=== PATIENT | male | born 1950 | race Caucasian/White ===

== ENCOUNTER 2018-11-08 19:14 | Inpatient (IN) | payer MEDICARE, MEDICAID ==
[~2018-11-08] VITALS: Ht 182.9 cm; Wt 68.5 kg
[~2018-11-08 19:14] MED LIST: BISACODYL5 MG RECTAL; DOCUSATE SODIU100 MG ORAL; DUONEB 0.5-3(2.53 ML HHN; FAMOTIDINE20 MG ORAL; FERROUS SULFAT325 MG ORAL; LABETALOL HCL100 MG ORAL; LEXAPRO10 MG ORAL; MILK OF MA400 MG/51 ORAL; NORCO 10-325 T1 EACH ORAL; PANTOPRAZOLE SO40 MG ORAL; TRIUMEQ 600-501 EACH PO
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
--- NOTE | 2018-11-08 19:27 | NUR ---
RESPIRATORY NOTE: PT. WAS BROUGHT IN FOR RESPIRATORY DISTRESS VIA AMBULANCE. PT WAS PLACED ON BIPAP 18/10 RATE 0F 16. 75% FIOS2 ALARMS ON AND AUDIBLE. PT IS CURRENTLY ON A FACIAL FASK. SPONGE TAPE WAS PLACE TO PROTECT THE FACE. NO PRIOR FACIAL WOUNDS WERE FOUND. ABG TO FOLLOW Addendum: 11/08/18 at 2057 by KALEN THOMAS RT REASON FOR AMENDMENT: INCOMPLETE NOTE. RESPIRATORY NOTE: PT. WAS BROUGHT IN FOR RESPIRATORY DISTRESS VIA AMBULANCE. PT WAS PLACED ON BIPAP 18/10 RATE 0F 16. FIO2 75% ALARMS ON AND AUDIBLE. PT IS CURRENTLY ON A FACIAL MASK. SPONGE TAPE WAS PLACE TO PROTECT THE FACE. NO PRIOR FACIAL WOUNDS WERE FOUND. ABG TO FOLLOW. WILL CONTINUE TO MONITOR.
[2018-11-08] MEDS ORDERED: FLEET ENEMA133 ML RECTAL (19:28)
[2018-11-08] MEDS ORDERED: ACETAMINOPHEN325 M1 ORAL (19:28)
[2018-11-08] MEDS ORDERED: Solu-MEDROL 125mg Inj IVP ONE (19:30)
[2018-11-08 19:33] LABS: EOSINOPHILS % (AUTO) 0.8 % (0.0-3.0); HEMATOCRIT 41.6 % (42.0-52.0); LYMPHOCYTES % (AUTO) 18.7 % (20.0-45.0); MEAN CORPUSCULAR VOLUME 84 FL (80-99); MONOCYTES % (AUTO) 8.8 % (1.0-10.0); NEUTROPHILS % (AUTO) 70.7 % (45.0-75.0); PLATELET COUNT 258 K/UL (150-450); RED BLOOD COUNT 4.94 M/UL (4.70-6.10); RED CELL DISTRIBUTION WIDTH 13.8 % (11.6-14.8); WHITE BLOOD COUNT 12.1 K/UL (4.8-10.8)
[2018-11-08 19:35] VITALS: BP 163/84
[2018-11-08 19:40] LABS: ANION GAP 7 mmol/L (5-15); BLOOD UREA NITROGEN 21 mg/dL (7-18); CALCIUM 9.2 MG/DL (8.5-10.1); CARBON DIOXIDE 29 MMOL/L (21-32); CHLORIDE 101 MMOL/L (98-107); CREATININE 1.1 MG/DL (0.55-1.30); POTASSIUM 4.6 MMOL/L (3.5-5.1); SODIUM 137 MMOL/L (136-145)
[2018-11-08 19:52] LABS: ALANINE AMINOTRANSFERASE 53 U/L (12-78); ALBUMIN 3.5 G/DL (3.4-5.0); ALBUMIN/GLOBULIN RATIO 0.8 (1.0-2.7); ALKALINE PHOSPHATASE 115 U/L (46-116); ASPARTATE AMINO TRANSFERASE 40 U/L (15-37); BILIRUBIN,TOTAL 0.5 MG/DL (0.2-1.0); CKMB 1.6 NG/ML (0.0-3.6); CREATINE KINASE 48 U/L (26-308)
--- NOTE | 2018-11-08 20:09 | Diagnostic Imaging Report ---
EXAM: XR Chest, 1 View CLINICAL HISTORY: SOB TECHNIQUE: Frontal view of the chest. COMPARISON: 11/02/18 FINDINGS: Lungs: Some very mild increased interstitial markings are suspected in the lungs which grossly have a similar appearance compared to the prior exam. Large lung volumes. A calcified nodule is again projected over the right lung base. Pleural space: No definite plain film evidence for pneumothorax. Heart: Unremarkable. No cardiomegaly. Mediastinum: There is some mild prominence of the mediastinum which may be related to the patient being rotated to the right. Bones/joints: Degenerative changes of the left acromioclavicular joint and thoracic spine. IMPRESSION: 1. Some very mild increased interstitial markings are suspected in the lungs which grossly have a similar appearance compared to the prior exam. 2. Large lung volumes.
--- NOTE | 2018-11-08 20:11 | NUR ---
RESPIRATORY NOTE: FIO2 TITRATED TO 30% PER DR. CHAPMAN ORDER POST ABG RESULTS. WILL CONTINUE TO MONITOR.
[2018-11-08] MEDS ORDERED: Levalbuterol Inh UD 1.25mg/0.5ml ONE (20:26)
[2018-11-08] MEDS ORDERED: Levalbuterol Inh UD 1.25mg/0.5ml HHN ONE (20:30)
[2018-11-08 21:30] VITALS: BP 118/81
[2018-11-08 22:10] VITALS: BP 133/73
--- NOTE | 2018-11-08 22:10 | NUR ---
NURSE NOTES: Received report from Tala RN, pt. brought up from ER, pt. is awake and alert X's4 - able to make needs known, Partner at bedside, pt. appears to be stable on BIPAP 19/10 Fio2 at30%- no respiratory distress noted, bed in lowest position and call light within easy reach, bed alarm on, side rails up x's3 and safety brakes engaged, cardiac monitoring placed, urinal placed at bed side and within easy reach, full body assessment done- sacral redness noted, but skin intact, VS stable, RFA 18G IV intact and patent, RT. AC 20G IV intact and patent, safety measures continued, will continue with plan of care.
--- NOTE | 2018-11-08 22:47 | NUR ---
NURSE NOTES: Nurse from ER aware to come up and start bag for Magnesium that was prescribed in ER.
--- NOTE | 2018-11-08 22:47 | NUR ---
NURSE NOTES: paged DR. Reynoso for admitting orders- waiting for call back from doctor.
--- NOTE | 2018-11-08 22:52 | NUR ---
NURSE NOTES: DR. Reynoso calling back with admitting orders- Regular diet no modifications, renew all [facility] medications, code status Full code, Levaquin IVPB 500mg Q daily, BIPAP 19/10 fio2 at 30%, Heparin 5000 units SUb-Q every 12 hours, and Solu-Medrol IVPB 50mg Daily- will carry out orders.
[2018-11-08] MEDS ORDERED: HYDROcodone/Acetamin 10/325 tab ORAL PRN (23:15)
--- NOTE | 2018-11-08 23:17 | NUR ---
NURSE NOTES: ALLY AT [facility] NOTIFIED OF MEDICATION SOLU-MEDROL 50MG VIA IVPB DAILY- ORDERS READ BACK TO DOCTOR AND STILL WANTS SOLU-MEDROL 50MG VIA IVPB DAILY. PER Ally - SHE WILL HAVE AM PHARMACIST PREPARE MEDICATION IT NEEDS TO BE MIXED.
[2018-11-09] VITALS: BP 120/73
[2018-11-09 04:00] VITALS: BP 122/50
--- NOTE | 2018-11-09 04:58 | NUR ---
RESPIRATORY NOTE: PT. REMAINED STABLE ON BIPAP WITH CURRENT SETTINGS. SPONGE TAPE SECURELY IN PLACE. MASK AND BIPAP CIRCUIT SECURE AND OUT OF THE WAY. NO S/S OF RESPIRATORY DISTRESS NOTED AT THIS TIME.
--- NOTE | 2018-11-09 07:01 | NUR ---
NURSE NOTES: Mindy from pharmacy calling regarding medication ordered by DR. Reynoso, Solu-Medrol 50mg VIA IVPB daily- explained to Mindy that doctor ordered the medication this way- and that I called doctor after ordered were read back again to verify order and doctor stated to have pharmacist dilute order- pharmacist aware.
--- NOTE | 2018-11-09 07:13 | NUR ---
HAND-OFF: Report given to Lianet RN, pt. remains stable and no signs of distress noted- aware discussion had with pharmacist Mindy regarding doctor ordering Solu-Medrol 50mg via IVPB daily and doctor requesting medication to be given that way.
--- NOTE | 2018-11-09 07:15 | NUR ---
NURSE NOTES: Report received from Alina HERNANDEZ.Pt resting in bed asleep but easily awakens with verbal command,on Bipap 19/10 Fio2 30%,noted no resp distress,denies any c/o pain or discomfort S-R on the monitor,skin warm and dry PIV x2 LAC and RFA both intact,SR up x2 call albarran within reach at bedside ,HOB elevated ,will continue with plan of care.
[2018-11-09 08:00] VITALS: BP 140/73
[2018-11-09] MEDS: Bisacodyl EC 5mg tab ORAL SCH (08:28)
[2018-11-09] MEDS: Milk of Magnesia 30ml Ud ORAL SCH (08:29)
[2018-11-09] MEDS: Docusate 100mg cap ORAL SCH ×2 (08:30→17:40)
[2018-11-09] MEDS: Heparin 5000 units/ml inj SUBQ SCH ×2 (08:31→20:06)
[2018-11-09] MEDS: Fleet's Enema 133ml RECTAL SCH (08:34)
[2018-11-09] MEDS ORDERED: NS IVP SCH (09:00)
[2018-11-09] MEDS ORDERED: METHYLPREDNISOLONE SOD SUCC IVP SCH (09:00)
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
--- NOTE | 2018-11-09 11:09 | NUR ---
NURSE NOTES: Dr Reynoso at bedside,discussed with pt re plans of care.
[2018-11-09] MEDS: HYDROcodone/Acetamin 10/325 tab ORAL PRN ×2 (11:23→22:17)
--- NOTE | 2018-11-09 11:27 | NUR ---
RESPIRATORY NOTE: Pt found off Bipap. Faith RN placed on 3L NC so the pt could eat. Pt has been tolerating NC since this morning with no SOB. NO respiratory distress noted. Breath sounds rhonchi bilateral. Nasotracheal suctioning done with moderate amount of yellow/white secretions produced. Spo2 100, HR 68, RR 20. Will continue to monitor.
[2018-11-09 12:00] VITALS: BP 157/77
--- NOTE | 2018-11-09 13:57 | NUR ---
CASE MANAGEMENT: REVIEW 68/M BIBA FROM [facility] CC: SOB SI: RESP DISTRESS T 98.4 HR 137 RR 31 BP 186/117 SAT 100% BIPAP FIO2 75 NA 12.1 H/H 13.0/41.6 BUN 21 ABG: PH 7.330 PCO2 51.7 PO2 301.9 HCO3 26.6 IS: NS IVF BOLUS X1 SOLU MEDROL IV X1 XOPENEX HHN X1 MAG SUL IV X1 PATIENT ADMITTED TO STEP DOWN UNIT 11/08/2018 DCP: PATIENT IS FROM [facility]
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
--- NOTE | 2018-11-09 15:10 | NUR ---
NURSE NOTES: Pt resting in bed asleep no resp distress presented ,stable.
[2018-11-09 16:00] VITALS: BP 126/66
--- NOTE | 2018-11-09 17:35 | NUR ---
NURSE NOTES: Dr Lopez at bedside with orders, to pt on 2L NC and keep O2 sat bet 90-96 %,,tolerated well, no resp distress presented.
--- NOTE | 2018-11-09 19:03 | NUR ---
HAND-OFF: Report given to Savanah Taylor RN.Pt sitting up on bed watching TV no resp distress presented.
--- NOTE | 2018-11-09 19:10 | NUR ---
NURSE NOTES: Received report from Lianet RN, pt. is awake and alert X's4 - able to make needs known, pt. appears to be comfortable watching television, pt. appears to be stable on BIPAP 12/5 setting Fio2 at 30%- no respiratory distress noted, bed in lowest position and call light within easy reach, bed alarm on, side rails up x's3 and safety brakes engaged- bed locked in position, cardiac monitoring on, urinal placed at bed side and within easy reach, RFA 18G IV intact and patent, RT. AC 20G IV intact and patent, comfort measures provided, safety measures continued, will continue with plan of care.
[2018-11-09 20:00] VITALS: BP 143/74
[2018-11-09] MEDS: Solu-MEDROL 40mg Inj IVP SCH (20:05)
--- NOTE | 2018-11-09 22:22 | NUR ---
NURSE NOTES: per opto mechanical technician- pt. having new onset of ST depression- assessed pt.- pt. stated he is having pain under ribs- no chest pain per pt. pt. asking for pain medication- otherwise pt. appears to be stable and no distress noted. Left msg for DR. Reynoso- waiting for call back from doctor.
--- NOTE | 2018-11-09 22:28 | NUR ---
NURSE NOTES: went to reassess patient- pt. stating he is fine and pain is improving. will continue to monitor pt. and with plan of care.
--- NOTE | 2018-11-09 22:45 | NUR ---
NURSE NOTES: DR. Reynoso calling back- to order EKG stat and Troponin tat- orders carried out- will continue to monitor pt. and notify doctor of results.
--- NOTE | 2018-11-09 23:39 | NUR ---
NURSE NOTES: Lisa from Lab calling regarding Troponin level 0.134- left msg for DR. Reynoso- waiting for call back from doctor.
--- NOTE | 2018-11-09 23:44 | NUR ---
NURSE NOTES: DR. Reynoso notified of EKG results and Troponin results 0.134. Per DR. Reynoso to order EKG and Troponin labs at 0400- will carry out orders and to notify him of results.
[2018-11-10] VITALS: BP 134/70
[2018-11-10 04:00] VITALS: BP 138/90
--- NOTE | 2018-11-10 05:48 | NUR ---
NURSE NOTES: left msg for DR. Reynoso- regarding Troponin trending up now 0.140 and EkG at [address] depression- awaiting for call back from doctor. Pt. remains stable and no signs of distress noted.
--- NOTE | 2018-11-10 07:08 | NUR ---
NURSE NOTES: DR. Reynoso calling back notified him pt. still shows ST depression on EKG and Troponin is trending up now 0.140- per Doctor he will get waistline joiner overlock assigned to patient.
--- NOTE | 2018-11-10 07:09 | NUR ---
HAND-OFF: Report given to Gregg HERNANDEZ, pt. remains stable and no signs of distress noted.
--- NOTE | 2018-11-10 07:15 | NUR ---
NURSE NOTES: Received report from Umair Taylor RN. Patient eating breakfast in bed, alert and oriented x 4, able to make needs known. Receiving O2 via nasal cannula @ 2L/min, respirations even and unlabored. Right forearm 18g and right AC 18g saline lock patent and asymptomatic. Bed locked in lowest position with side rails up x 3. All needs attended to. Call light within reach. Will continue to monitor.
[2018-11-10 08:00] VITALS: BP 108/73
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
[2018-11-10] MEDS: Levofloxacin 500mg tab ORAL SCH (08:49)
[2018-11-10] MEDS: Bisacodyl EC 5mg tab ORAL SCH (08:49)
[2018-11-10] MEDS: Milk of Magnesia 30ml Ud ORAL SCH (08:49)
[2018-11-10] MEDS: Docusate 100mg cap ORAL SCH ×2 (08:49→17:41)
[2018-11-10] MEDS: Solu-MEDROL 40mg Inj IVP SCH ×2 (08:49→20:56)
[2018-11-10] MEDS: Heparin 5000 units/ml inj SUBQ SCH ×2 (08:51→20:58)
--- NOTE | 2018-11-10 11:12 | General Progress Note ---
Assessment/Plan Assessment/Plan Atypical CP - Cardiology consulted . TropI increased to 0.14. EKG _ LVH + strain. Subjective Allergies: Coded Allergies: No Known Allergies (Unverified , 11/02/18) Subjective Had epigastric CP during the night. Objective Last 24 Hour Vital Signs Date Time Temp Pulse Resp B/P (MAP) Pulse Ox O2 Delivery O2 Flow Rate FiO2 11/10/18 08:51 68 108/73 11/10/18 08:00 70 11/10/18 08:00 98.5 68 19 108/73 (85) 98 11/10/18 08:00 2.0 11/10/18 08:00 Nasal Cannula 2.0 11/10/18 05:18 61 18 99 11/10/18 04:00 30 11/10/18 04:00 62 11/10/18 04:00 Bi-pap 11/10/18 04:00 97.2 63 16 138/90 (106) 100 11/10/18 03:55 61 18 100 Facial 30 11/10/18 01:13 63 18 100 Facial 30 11/10/18 00:00 30 11/10/18 00:00 96.8 62 20 134/70 (91) 100 11/10/18 00:00 Bi-pap 11/10/18 00:00 58 11/09/18 23:21 62 18 99 Facial 30 11/09/18 22:47 98.5 11/09/18 21:01 66 18 100 Facial 30 11/09/18 20:12 70 18 100 Facial 30 11/09/18 20:05 75 143/74 11/09/18 20:00 69 11/09/18 20:00 98.5 72 20 143/74 (97) 99 11/09/18 20:00 30 11/09/18 20:00 Bi-pap 11/09/18 16:00 30 11/09/18 16:00 Bi-pap 11/09/18 16:00 96.8 67 18 126/66 (86) 100 11/09/18 16:00 63 11/09/18 14:39 67 18 100 Facial 30 11/09/18 13:10 61 18 100 Facial 30 11/09/18 12:00 30 11/09/18 12:00 73 11/09/18 12:00 Bi-pap 11/09/18 12:00 97.0 66 18 157/77 (103) 100 Intake and Output 11/09/18 11/10/18 19:00 07:00 Output Total 650 ml Balance -650 ml Output Urine Total 650 ml # Voids 1 Laboratory Tests 11/09/18 23:05: Troponin I 0.134H 11/10/18 03:55: Troponin I 0.140H Height (Feet): 6 Height (Inches): 0.00 Weight (Pounds): 160 Objective CV RR Lungs CTA Abd SNT BS + E No CCE Ernesto Reynoso MD Nov 10, 2018 11:12
[2018-11-10 12:00] VITALS: BP 149/70
--- NOTE | 2018-11-10 13:42 | NUR ---
NURSE NOTES: Patient's ST depression in EKG and troponin level of 0.[address] Barnhart. Received order to fax EKG, noted and carried out. Please see confirmation of fax in patient's chart.
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
--- NOTE | 2018-11-10 14:50 | NUR ---
TRANSFER TO FLOOR: Patient transferred to med-surg room 412-2, per Dr. Drummond. Report given to DAVID Cope. Belongings and medications given to receiving nurse. Family informed of transfer. Addendum: 11/10/18 at 1519 by ETELVINA ALVARENGA RN *ERROR---WRONG PATIENT* PLEASE DISREGARD
[2018-11-10] MEDS: HYDROcodone/Acetamin 10/325 tab ORAL PRN (15:46)
[2018-11-10 16:00] VITALS: BP 153/76
--- NOTE | 2018-11-10 16:50 | Cardiology Report ---
APPROVED REPORT EKG Measurement Heart [id number] CO [id number] [id number] Sinus bradycardia Left ventricular hypertrophy with repolarization abnormality Prolonged QT Abnormal ECG
[2018-11-10] MEDS: Albuterol/Ipratropium 3ml neb HHN PRN ×2 (17:38→19:38)
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
--- NOTE | 2018-11-10 19:17 | NUR ---
HAND-OFF: Report given to Abdi Tijerina RN.
--- NOTE | 2018-11-10 19:30 | NUR ---
NURSE NOTES: Received Pt is resting on the bed and awake and alert. No sign of acute distress noted. On Tele monitor still noted inverted T wave and ST depression. Dr. Barnhart visited and assessed Pt. Rt. AC IV site is leaking. Removed IV line. On O2 2L via nasal cannula ans SaO2 99% noted. Placed fall precaution. Will continue to care plan.
--- NOTE | 2018-11-10 19:57 | NUR ---
CASE MANAGEMENT: REVIEW SI: RESP DISTRESS T 98.2 HR 74 RR 18 BP 149/70 SAT 100% BIPAP FIO2 30 TROPONIN I 0.140 IS: SOLU MEDROL IV Q12HR HEPARIN SQ Q12HR NITRO TOPICAL TID LEVAQUIN PO QD DOXYCYCLINE PO Q12HR STEP DOWN STATUS DCP: PATIENT IS FROM [facility]
[2018-11-10 20:00] VITALS: BP 154/84
[2018-11-11] VITALS: BP 155/76
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
[2018-11-11 04:00] VITALS: BP 147/70
[2018-11-11] MEDS: Nitroglycerin 2% oint pkt TOPIC SCH ×3 (06:12→17:00)
[2018-11-11 07:18] LABS: ALANINE AMINOTRANSFERASE 38 U/L (12-78); ALBUMIN 2.9 G/DL (3.4-5.0); ALBUMIN/GLOBULIN RATIO 0.7 (1.0-2.7); ALKALINE PHOSPHATASE 86 U/L (46-116); ANION GAP 6 mmol/L (5-15); ASPARTATE AMINO TRANSFERASE 22 U/L (15-37); BILIRUBIN,TOTAL 0.3 MG/DL (0.2-1.0); BLOOD UREA NITROGEN 25 mg/dL (7-18); CALCIUM 9.2 MG/DL (8.5-10.1); CARBON DIOXIDE 30 MMOL/L (21-32); CHLORIDE 104 MMOL/L (98-107); CREATININE 0.9 MG/DL (0.55-1.30); PHOSPHORUS 3.1 MG/DL (2.5-4.9); POTASSIUM 4.5 MMOL/L (3.5-5.1); SODIUM 140 MMOL/L (136-145)
--- NOTE | 2018-11-11 07:40 | NUR ---
HAND-OFF: Report given to DAVID German. Pt is resting on the bed and no sign of acute distress noted.
--- NOTE | 2018-11-11 07:40 | NUR ---
NURSE NOTES: Received report from Ivy HERNANDEZ. Pt is awake, alert, oriented x4, sitting up in bed, having breakfast. Was switched from Bipap to 2L of oxygen via nasal cannula, currently at 99% sP02. Denies any chest pain at this time. NitroBid patch on right upper chest. IV access on right FA #18G, saline lock, patent/intact. Urinal at bedside. Skin is intact. Call light is placed within easy reach, bed in lowest position, two side rails up, brakes engaged.
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
[2018-11-11 07:49] LABS: CKMB 0.9 NG/ML (0.0-3.6)
[2018-11-11 08:00] VITALS: BP 138/81
[2018-11-11 08:08] LABS: BASOPHILS % (AUTO) 0.4 % (0.0-2.0); HEMATOCRIT 35.8 % (42.0-52.0); HEMOGLOBIN 11.2 G/DL (14.2-18.0); LYMPHOCYTES % (AUTO) 18.5 % (20.0-45.0); MEAN CORPUSCULAR VOLUME 84 FL (80-99); MONOCYTES % (AUTO) 9.9 % (1.0-10.0); NEUTROPHILS % (AUTO) 71.3 % (45.0-75.0); PLATELET COUNT 188 K/UL (150-450); RED BLOOD COUNT 4.25 M/UL (4.70-6.10); WHITE BLOOD COUNT 6.4 K/UL (4.8-10.8)
[2018-11-11] MEDS: Milk of Magnesia 30ml Ud ORAL SCH (08:55)
[2018-11-11] MEDS: Docusate 100mg cap ORAL SCH ×2 (08:55→16:59)
[2018-11-11] MEDS: Bisacodyl EC 5mg tab ORAL SCH (08:56)
[2018-11-11] MEDS: Levofloxacin 500mg tab ORAL SCH (08:56)
[2018-11-11] MEDS: Heparin 5000 units/ml inj SUBQ SCH ×2 (08:58→20:22)
[2018-11-11] MEDS ORDERED: Solu-MEDROL 40mg Inj IVP SCH (09:00)
[2018-11-11] MEDS: Albuterol/Ipratropium 3ml neb HHN PRN ×2 (09:32→20:07)
--- NOTE | 2018-11-11 11:07 | GI Progress Note ---
Assessment/Plan Problems: (1) Submucosal lesion of esophagus ICD Codes: K22.8 - Other specified diseases of esophagus SNOMED: 543828135 (2) Anemia ICD Codes: D64.9 - Anemia, unspecified SNOMED: 889268610 (3) Iron deficiency ICD Codes: E61.1 - Iron deficiency SNOMED: 45157909 (4) Respiratory distress ICD Codes: R06.03 - Acute respiratory distress SNOMED: 775377256 (5) Mediastinal mass ICD Codes: J98.59 - Other diseases of mediastinum, not elsewhere classified SNOMED: 04920211 Status: unchanged Status Narrative Discussed with Dr. Arias Assessment/Plan Recent EGD/EUS performed at [facility] approximately 2 weeks ago, noted with metastatic esophageal submucosal lesion. No plans for GI procedures at this time given recent history may need capsule endoscopy r/o source of CA as outpatient We will need cardiology recommendations given elevated troponin levels As needed transfusions PPI twice daily pain mgmt ferrous Sulfate Bowel regimen Follow-up oncology recommendations The patient was seen and examined at bedside and all new and available data was reviewed in the patients chart. I agree with the above findings, impression and plan. (Patient seen earlier today. Signature stamp does not reflect patient encounter time.). - Jerry Arias MD Subjective Subjective Esophageal tenderness and pain Objective Last 24 Hour Vital Signs Date Time Temp Pulse Resp B/P (MAP) Pulse Ox O2 Delivery O2 Flow Rate FiO2 11/11/18 09:32 81 20 99 Nasal Cannula 2.0 28 11/11/18 09:27 83 20 98 Nasal Cannula 2.0 28 11/11/18 08:56 76 138/81 11/11/18 07:35 97 Nasal Cannula 2.0 28 11/11/18 07:35 Nasal Cannula 2.0 28 11/11/18 06:12 147/70 11/11/18 04:00 57 11/11/18 04:00 98.0 70 20 147/70 (95) 100 11/11/18 04:00 Bi-pap 11/11/18 04:00 2.0 11/11/18 03:01 64 16 100 11/11/18 00:00 67 11/11/18 00:00 Bi-pap 11/11/18 00:00 30 11/11/18 00:00 98.1 68 20 155/76 (102) 100 11/10/18 22:42 68 19 100 Facial 30 11/10/18 21:28 64 17 100 Facial 30 11/10/18 20:56 68 154/84 11/10/18 20:00 68 11/10/18 20:00 2.0 11/10/18 20:00 98.4 68 20 154/84 (107) 99 11/10/18 20:00 Nasal Cannula 2.0 11/10/18 19:35 99 Nasal Cannula 2.0 28 11/10/18 19:35 Nasal Cannula 2.0 28 11/10/18 17:43 74 20 100 Nasal Cannula 2.0 28 11/10/18 17:35 78 20 98 Nasal Cannula 2.0 28 11/10/18 17:32 78 20 Nasal Cannula 2.0 28 11/10/18 16:16 98.2 11/10/18 16:00 98.2 74 18 153/76 (101) 99 11/10/18 16:00 73 11/10/18 16:00 Nasal Cannula 2.0 11/10/18 16:00 2.0 11/10/18 12:00 2.0 11/10/18 12:00 98.2 68 19 149/70 (96) 100 11/10/18 12:00 Nasal Cannula 2.0 11/10/18 12:00 70 Intake and Output 11/10/18 11/11/18 19:00 07:00 Intake Total 360 ml 120 ml Output Total 525 ml 700 ml Balance -165 ml -580 ml Intake Oral 360 ml 120 ml Output Urine Total 525 ml 700 ml # Voids 3 Laboratory Tests Test 11/11/18 05:25 White Blood Count 6.4 K/UL (4.8-10.8) Red Blood Count 4.25 M/UL (4.70-6.10) L Hemoglobin 11.2 G/DL (14.2-18.0) L Hematocrit 35.8 % (42.0-52.0) L Mean Corpuscular Volume 84 FL (80-99) Mean Corpuscular Hemoglobin 26.3 PG (27.0-31.0) L Mean Corpuscular Hemoglobin Concent 31.2 G/DL (32.0-36.0) L Red Cell Distribution Width 14.0 % (11.6-14.8) Platelet Count 188 K/UL (150-450) Mean Platelet Volume 5.5 FL (6.5-10.1) L Neutrophils (%) (Auto) 71.3 % (45.0-75.0) Lymphocytes (%) (Auto) 18.5 % (20.0-45.0) L Monocytes (%) (Auto) 9.9 % (1.0-10.0) Eosinophils (%) (Auto) 0.0 % (0.0-3.0) Basophils (%) (Auto) 0.4 % (0.0-2.0) Prothrombin Time 10.9 SEC (9.30-11.50) Prothromb Time International Ratio 1.0 (0.9-1.1) Activated Partial Thromboplast Time 29 SEC (23-33) Sodium Level 140 MMOL/L (136-145) Potassium Level 4.5 MMOL/L (3.5-5.1) Chloride Level 104 MMOL/L (98-107) Carbon Dioxide Level 30 MMOL/L (21-32) Anion Gap 6 mmol/L (5-15) Blood Urea Nitrogen 25 mg/dL (7-18) H Creatinine 0.9 MG/DL (0.55-1.30) Estimat Glomerular Filtration Rate > 60 mL/min (>60) Glucose Level 115 MG/DL (74-106) H Calcium Level 9.2 MG/DL (8.5-10.1) Phosphorus Level 3.1 MG/DL (2.5-4.9) Magnesium Level 2.1 MG/DL (1.8-2.4) Total Bilirubin 0.3 MG/DL (0.2-1.0) Aspartate Amino Transf (AST/SGOT) 22 U/L (15-37) Alanine Aminotransferase (ALT/SGPT) 38 U/L (12-78) Alkaline Phosphatase 86 U/L (46-116) Total Creatine Kinase 29 U/L (26-308) Creatine Kinase MB 0.9 NG/ML (0.0-3.6) Creatine Kinase MB Relative Index 3.1 Troponin I 0.033 ng/mL (0.000-0.056) Total Protein 6.8 G/DL (6.4-8.2) Albumin 2.9 G/DL (3.4-5.0) L Globulin 3.9 g/dL Albumin/Globulin Ratio 0.7 (1.0-2.7) L Height (Feet): 6 Height (Inches): 0.00 Weight (Pounds): 160 General Appearance: WD/WN, no apparent distress, alert Cardiovascular: normal rate Respiratory/Chest: normal breath sounds, no respiratory distress Abdominal Exam: normal bowel sounds, non tender, soft Extremities: normal range of motion, non-tender Reva Wilson NP Nov 11, 2018 11:07
[2018-11-11] MEDS: HYDROcodone/Acetamin 10/325 tab ORAL PRN ×2 (11:36→21:50)
[2018-11-11 12:00] VITALS: BP 153/80
--- NOTE | 2018-11-11 13:14 | General Progress Note ---
Assessment/Plan Assessment/Plan Atypical CP - Cardiology consulted . TropI increased to 0.14. EKG _ LVH + strain. Suspect Aspiration!! DW Dr. Landeros To CINDY Arias! Subjective Allergies: Coded Allergies: No Known Allergies (Unverified , 11/02/18) Subjective Coughing, + SOB Objective Last 24 Hour Vital Signs Date Time Temp Pulse Resp B/P (MAP) Pulse Ox O2 Delivery O2 Flow Rate FiO2 11/11/18 12:06 98.6 11/11/18 12:00 Bi-pap 11/11/18 12:00 2.0 11/11/18 12:00 97.6 74 21 153/80 (104) 99 11/11/18 11:35 138/81 11/11/18 09:32 81 20 99 Nasal Cannula 2.0 28 11/11/18 09:27 83 20 98 Nasal Cannula 2.0 28 11/11/18 08:56 76 138/81 11/11/18 08:00 Bi-pap 11/11/18 08:00 98.6 76 20 138/81 (100) 99 11/11/18 08:00 2.0 11/11/18 07:42 76 11/11/18 07:35 97 Nasal Cannula 2.0 28 11/11/18 07:35 Nasal Cannula 2.0 28 11/11/18 06:12 147/70 11/11/18 04:00 57 11/11/18 04:00 98.0 70 20 147/70 (95) 100 11/11/18 04:00 Bi-pap 11/11/18 04:00 2.0 11/11/18 03:01 64 16 100 11/11/18 00:00 67 11/11/18 00:00 Bi-pap 11/11/18 00:00 30 11/11/18 00:00 98.1 68 20 155/76 (102) 100 11/10/18 22:42 68 19 100 Facial 30 11/10/18 21:28 64 17 100 Facial 30 11/10/18 20:56 68 154/84 11/10/18 20:00 68 11/10/18 20:00 2.0 11/10/18 20:00 98.4 68 20 154/84 (107) 99 11/10/18 20:00 Nasal Cannula 2.0 11/10/18 19:35 99 Nasal Cannula 2.0 28 11/10/18 19:35 Nasal Cannula 2.0 28 11/10/18 17:43 74 20 100 Nasal Cannula 2.0 28 11/10/18 17:35 78 20 98 Nasal Cannula 2.0 28 11/10/18 17:32 78 20 Nasal Cannula 2.0 28 11/10/18 16:00 98.2 74 18 153/76 (101) 99 11/10/18 16:00 73 11/10/18 16:00 Nasal Cannula 2.0 11/10/18 16:00 2.0 Intake and Output 11/10/18 11/11/18 19:00 07:00 Intake Total 360 ml 120 ml Output Total 525 ml 700 ml Balance -165 ml -580 ml Intake Oral 360 ml 120 ml Output Urine Total 525 ml 700 ml # Voids 3 Laboratory Tests 11/11/18 05:25: White Blood Count 6.4, Red Blood Count 4.25L, Hemoglobin 11.2L, Hematocrit 35.8L , Mean Corpuscular Volume 84, Mean Corpuscular Hemoglobin 26.3L, Mean Corpuscular Hemoglobin Concent 31.2L, Red Cell Distribution Width 14.0, Platelet Count 188, Mean Platelet Volume 5.5L, Neutrophils (%) (Auto) 71.3, Lymphocytes (%) (Auto) 18.5L, Monocytes (%) (Auto) 9.9, Eosinophils (%) (Auto) 0.0, Basophils (%) (Auto) 0.4, Prothrombin Time 10.9, Prothromb Time International Ratio 1.0, Activated Partial Thromboplast Time 29, Sodium Level 140, Potassium Level 4.5, Chloride Level 104, Carbon Dioxide Level 30, Anion Gap 6, Blood Urea Nitrogen 25H, Creatinine 0.9, Estimat Glomerular Filtration Rate > 60, Glucose Level 115H, Calcium Level 9.2, Phosphorus Level 3.1, Magnesium Level 2.1, Total Bilirubin 0.3, Aspartate Amino Transf (AST/SGOT) 22, Alanine Aminotransferase (ALT/SGPT) 38, Alkaline Phosphatase 86, Total Creatine Kinase 29, Creatine Kinase MB 0.9, Creatine Kinase MB Relative Index 3.1, Troponin I 0.033, Total Protein 6.8, Albumin 2.9L, Globulin 3.9, Albumin/ Globulin Ratio 0.7L Height (Feet): 6 Height (Inches): 0.00 Weight (Pounds): 160 Objective CV RR Lungs B Ronchi + wheezes Abd SNT BS + E No CCE Ernesto Reynoso MD Nov 11, 2018 13:14
[2018-11-11 16:00] VITALS: BP 148/69
--- NOTE | 2018-11-11 19:15 | NUR ---
NURSE NOTES: Received patient from DAVID German. Patient is awake, alert and oriented x4. On nasal cannula 2L and showing no signs and symptoms of pain and/or distress. Patient is ambulatory and walks to the restroom without assistance. Will continue plan of care.
--- NOTE | 2018-11-11 19:43 | NUR ---
HAND-OFF: Report given to Charlotte HERNANDEZ. Pt is resting in bed in stable condition. Endorsed plan of care.
[2018-11-11 20:00] VITALS: BP 147/77
--- NOTE | 2018-11-11 20:29 | NUR ---
NURSE NOTES: Patient refuses bed bath tonight. Also insisted that his linens do not need to be changed and that he is comfortable. Gown changed and will follow up with patient later again.
--- NOTE | 2018-11-11 21:35 | NUR ---
RESPIRATORY NOTE: pt request to be placed on bipap of settings of IPAP 12, EPAP 5, FiO2 50% and back up rate of 16. Needed to Increase FiO2 to 50% due desaturation. pt was on NC of 3 L/m and pt was saturating 82% and is having SOB. pt is now tolerating settings and 02 saturation is now 93%. pt is on facial mask with tape to prevent from skin break down. no s/s of respiratory distress noted. will continue to monitor pt.
[2018-11-12] VITALS: BP 155/82
--- NOTE | 2018-11-12 00:45 | Progress Note ---
DATE: 11/11/2018 CARDIOLOGY PROGRESS NOTE SUBJECTIVE: The patient is still congested with cough. No chest pain. OBJECTIVE: VITAL SIGNS: Blood pressure 138/81, pulse 81 and respirations 20. Monitor, sinus, sinus tachycardia, occasional atrial ectopy. LUNGS: Coarse breath sounds. Rhonchi. HEART: Regular rhythm and rate. Normal S1, S2. ABDOMEN: Soft. EXTREMITIES: No edema. LABORATORY DATA: White count 6.4 and hemoglobin 11.2. Potassium 4.5. BUN 25 and creatinine 0.9. CK is 29. Troponin is decreased to 0.033. Albumin 2.9. IMPRESSION: The patient had a small rise in troponin and now, it has normalized. I suspect this is due to an episode of acute myocardial ischemia rather than any significant myocardial infarction. I believe his major issues at this time would include his aspiration, pneumonia, and esophageal lesion, as well as complications of his chronic obstructive pulmonary disease. PLAN: 1. Antibiotics. 2. Respiratory hygiene. 3. No anti-platelet therapy due to bleeding risk. 4. DVT prophylaxis. 5. Titration of antihypertensive regimen for optimal blood pressure control. 6. Continue beta-talha and nitrate therapy. Paulo Barnhart M.D. DR: FLAKITO JOB#: [id number] CC:
--- NOTE | 2018-11-12 00:50 | NUR ---
NURSE NOTES: Provided full linen change for patient but patient continue to refuse bed bath. Patient is back on BiPAP, O2 saturating at 100% and sleeping comfortably. Will continue care.
[2018-11-12 04:00] VITALS: BP 108/63
[2018-11-12] MEDS: Nitroglycerin 2% oint pkt TOPIC SCH ×3 (05:05→18:23)
[2018-11-12 06:22] LABS: BASOPHILS % (AUTO) 0.5 % (0.0-2.0); EOSINOPHILS % (AUTO) 0.1 % (0.0-3.0); HEMATOCRIT 33.9 % (42.0-52.0); HEMOGLOBIN 10.7 G/DL (14.2-18.0); LYMPHOCYTES % (AUTO) 18.7 % (20.0-45.0); MEAN CORPUSCULAR VOLUME 85 FL (80-99); MONOCYTES % (AUTO) 10.3 % (1.0-10.0); NEUTROPHILS % (AUTO) 70.5 % (45.0-75.0); PLATELET COUNT 197 K/UL (150-450); RED BLOOD COUNT 3.99 M/UL (4.70-6.10); RED CELL DISTRIBUTION WIDTH 14.5 % (11.6-14.8); WHITE BLOOD COUNT 6.5 K/UL (4.8-10.8)
[2018-11-12 06:34] LABS: ANION GAP 6 mmol/L (5-15); BLOOD UREA NITROGEN 30 mg/dL (7-18); CARBON DIOXIDE 31 MMOL/L (21-32); CHLORIDE 104 MMOL/L (98-107); POTASSIUM 4.1 MMOL/L (3.5-5.1); SODIUM 141 MMOL/L (136-145)
--- NOTE | 2018-11-12 07:20 | NUR ---
NURSE NOTES: RECEIVED BED SIDE REPORT FROM [employer] HELPER OF NOC SHIFT.RECEIVED PT RESTING IN BED AWAKE AND ALERT DENIES CP USING O2 @ 2L/MINTS VIA N/C.PT HAVING BREAKFAST AND TOLERATING WELL NO S/S OF ASPIRATION,NO RESPIRATORY DISTRESS NOTED AT THIS TIME.FULL BODY ASSESSMENT DONE.NO ACUTE DISTRESS NOTED AT THIS TIME.WILL CONT TO MONITOR.
--- NOTE | 2018-11-12 07:25 | NUR ---
HAND-OFF: Report given to DAVID TAVARES. Patient is stable.
[2018-11-12 08:00] VITALS: BP 137/61
[2018-11-12] MEDS: Fleet's Enema 133ml RECTAL SCH (09:00)
[2018-11-12] MEDS: Milk of Magnesia 30ml Ud ORAL SCH (09:00)
[2018-11-12] MEDS: Bisacodyl EC 5mg tab ORAL SCH (09:00)
[2018-11-12] MEDS: Heparin 5000 units/ml inj SUBQ SCH ×2 (09:00→20:36)
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
[2018-11-12] MEDS: Levofloxacin 500mg tab ORAL SCH (09:46)
[2018-11-12] MEDS: Docusate 100mg cap ORAL SCH ×2 (09:46→18:22)
[2018-11-12] MEDS ORDERED: Solu-MEDROL 40mg Inj IVP SCH (10:00)
--- NOTE | 2018-11-12 10:00 | NUR ---
NURSE NOTES OPT HAVING RESP DISTRESS PLACED ON BIPAP BY RT.PT MEDICATED WITH SALUMEDROL 40MG IVP PER M.D ORDERS. WILL CONT TO MONITOR.
--- NOTE | 2018-11-12 10:53 | GI Progress Note ---
Assessment/Plan Problems: (1) Submucosal lesion of esophagus ICD Codes: K22.8 - Other specified diseases of esophagus SNOMED: 615610918 (2) Anemia ICD Codes: D64.9 - Anemia, unspecified SNOMED: 276767959 (3) Iron deficiency ICD Codes: E61.1 - Iron deficiency SNOMED: 65139898 (4) Respiratory distress ICD Codes: R06.03 - Acute respiratory distress SNOMED: 935619551 (5) Mediastinal mass ICD Codes: J98.59 - Other diseases of mediastinum, not elsewhere classified SNOMED: 19795115 Status: unchanged Status Narrative Discussed with Dr. Arias. Assessment/Plan Recent EGD/EUS performed at [facility] approximately 2 weeks ago, noted with metastatic esophageal submucosal lesion. may need capsule endoscopy r/o source of CA as outpatient possible aspiration, will order ST evaluation PEG if necessary As needed transfusions PPI twice daily pain mgmt ferrous Sulfate Bowel regimen Follow-up oncology/cardiology recommendations The patient was seen and examined at bedside and all new and available data was reviewed in the patients chart. I agree with the above findings, impression and plan. (Patient seen earlier today. Signature stamp does not reflect patient encounter time.). - Jerry Arias MD Subjective Subjective Esophageal tenderness, SOB and coughing Objective Last 24 Hour Vital Signs Date Time Temp Pulse Resp B/P (MAP) Pulse Ox O2 Delivery O2 Flow Rate FiO2 11/12/18 10:13 65 28 98 Facial 40 11/12/18 09:47 65 137/61 11/12/18 08:00 Nasal Cannula 2.0 11/12/18 08:00 99 Nasal Cannula 3.0 32 11/12/18 08:00 Nasal Cannula 3.0 32 11/12/18 08:00 97.2 65 18 137/61 (86) 100 11/12/18 08:00 2.0 11/12/18 05:09 63 16 98 Facial 40 11/12/18 05:05 155/82 11/12/18 04:00 97.9 61 19 108/63 (78) 100 11/12/18 04:00 40 11/12/18 04:00 Nasal Cannula 2.0 11/12/18 03:35 61 17 99 Facial 40 11/12/18 03:25 73 11/12/18 01:32 98 18 97 Facial 50 11/12/18 00:00 Nasal Cannula 2.0 11/12/18 00:00 98.0 111 21 155/82 (106) 100 11/12/18 00:00 50 11/11/18 23:43 114 23 97 Facial 50 11/11/18 23:30 124 11/11/18 21:37 142 23 93 Facial 50 11/11/18 20:21 77 147/77 11/11/18 20:17 60 18 99 Nasal Cannula 3.0 32 11/11/18 20:07 Nasal Cannula 3.0 32 11/11/18 20:07 57 16 99 Nasal Cannula 3.0 32 11/11/18 20:07 99 Nasal Cannula 3.0 32 11/11/18 20:00 2.0 11/11/18 20:00 Nasal Cannula 2.0 11/11/18 20:00 98.4 77 32 147/77 (100) 100 11/11/18 19:59 83 11/11/18 17:00 148/69 11/11/18 16:00 66 11/11/18 16:00 97.3 71 21 148/69 (95) 100 11/11/18 16:00 Bi-pap 11/11/18 16:00 2.0 11/11/18 12:06 98.6 11/11/18 12:00 Bi-pap 11/11/18 12:00 2.0 11/11/18 12:00 76 11/11/18 12:00 97.6 74 21 153/80 (104) 99 11/11/18 11:35 138/81 Intake and Output 11/11/18 11/12/18 19:00 07:00 Intake Total 360 ml Output Total 600 ml 550 ml Balance -240 ml -550 ml Intake Oral 360 ml Output Urine Total 600 ml 550 ml # Voids 3 5 # Bowel Movements 2 Laboratory Tests Test 11/12/18 04:00 White Blood Count 6.5 K/UL (4.8-10.8) Red Blood Count 3.99 M/UL (4.70-6.10) L Hemoglobin 10.7 G/DL (14.2-18.0) L Hematocrit 33.9 % (42.0-52.0) L Mean Corpuscular Volume 85 FL (80-99) Mean Corpuscular Hemoglobin 26.8 PG (27.0-31.0) L Mean Corpuscular Hemoglobin Concent 31.5 G/DL (32.0-36.0) L Red Cell Distribution Width 14.5 % (11.6-14.8) Platelet Count 197 K/UL (150-450) Mean Platelet Volume 5.4 FL (6.5-10.1) L Neutrophils (%) (Auto) 70.5 % (45.0-75.0) Lymphocytes (%) (Auto) 18.7 % (20.0-45.0) L Monocytes (%) (Auto) 10.3 % (1.0-10.0) H Eosinophils (%) (Auto) 0.1 % (0.0-3.0) Basophils (%) (Auto) 0.5 % (0.0-2.0) Sodium Level 141 MMOL/L (136-145) Potassium Level 4.1 MMOL/L (3.5-5.1) Chloride Level 104 MMOL/L (98-107) Carbon Dioxide Level 31 MMOL/L (21-32) Anion Gap 6 mmol/L (5-15) Blood Urea Nitrogen 30 mg/dL (7-18) H Creatinine 1.0 MG/DL (0.55-1.30) Estimat Glomerular Filtration Rate > 60 mL/min (>60) Glucose Level 109 MG/DL (74-106) H Calcium Level 9.0 MG/DL (8.5-10.1) Height (Feet): 6 Height (Inches): 0.00 Weight (Pounds): 158 General Appearance: WD/WN, no apparent distress, alert, thin Cardiovascular: normal rate Respiratory/Chest: normal breath sounds, no respiratory distress Abdominal Exam: normal bowel sounds, non tender, soft Extremities: non-tender Reva Wilson CONTROL ROOM SUPERVISOR Nov 12, 2018 10:53
[2018-11-12 12:00] VITALS: BP 116/78
--- NOTE | 2018-11-12 12:20 | NUR ---
ST NOTE: RECEIVED BEDSIDE SWALLOW EVAL CHART REVIEWED. ATTEMPTED TO SEE PT, HOWEVER, PT WAS PUT BACK ON THE BIPAP. WILL RE-ATTEMPT. RNCHAITANYA, NOTIFIED.
[2018-11-12] MEDS: HYDROcodone/Acetamin 10/325 tab ORAL PRN (13:02)
--- NOTE | 2018-11-12 14:53 | General Progress Note ---
Assessment/Plan Assessment/Plan Atypical CP - Cardiology consulted . Suspect Aspiration!! On Intermittent BIPAP. CINDY Landeros To CINDY Arias! May need PEG. Subjective Allergies: Coded Allergies: No Known Allergies (Unverified , 11/02/18) Subjective Coughing, + SOB Objective Last 24 Hour Vital Signs Date Time Temp Pulse Resp B/P (MAP) Pulse Ox O2 Delivery O2 Flow Rate FiO2 11/12/18 13:32 96.8 11/12/18 12:58 116/78 11/12/18 12:19 68 11/12/18 12:00 40 11/12/18 12:00 Nasal Cannula 2.0 11/12/18 12:00 96.8 82 16 116/78 (91) 99 11/12/18 11:29 63 18 97 Facial 40 11/12/18 10:13 65 28 98 Facial 40 11/12/18 10:00 40 11/12/18 09:47 65 137/61 11/12/18 08:00 Nasal Cannula 2.0 11/12/18 08:00 99 Nasal Cannula 3.0 32 11/12/18 08:00 Nasal Cannula 3.0 32 11/12/18 08:00 70 11/12/18 08:00 97.2 65 18 137/61 (86) 100 11/12/18 08:00 2.0 11/12/18 05:09 63 16 98 Facial 40 11/12/18 05:05 155/82 11/12/18 04:00 97.9 61 19 108/63 (78) 100 11/12/18 04:00 40 11/12/18 04:00 Nasal Cannula 2.0 11/12/18 03:35 61 17 99 Facial 40 11/12/18 03:25 73 11/12/18 01:32 98 18 97 Facial 50 11/12/18 00:00 Nasal Cannula 2.0 11/12/18 00:00 98.0 111 21 155/82 (106) 100 11/12/18 00:00 50 11/11/18 23:43 114 23 97 Facial 50 11/11/18 23:30 124 11/11/18 21:37 142 23 93 Facial 50 11/11/18 20:21 77 147/77 11/11/18 20:17 60 18 99 Nasal Cannula 3.0 32 11/11/18 20:07 Nasal Cannula 3.0 32 11/11/18 20:07 57 16 99 Nasal Cannula 3.0 32 11/11/18 20:07 99 Nasal Cannula 3.0 32 11/11/18 20:00 2.0 11/11/18 20:00 Nasal Cannula 2.0 11/11/18 20:00 98.4 77 32 147/77 (100) 100 11/11/18 19:59 83 11/11/18 17:00 148/69 11/11/18 16:00 66 11/11/18 16:00 97.3 71 21 148/69 (95) 100 11/11/18 16:00 Bi-pap 11/11/18 16:00 2.0 Intake and Output 11/11/18 11/12/18 19:00 07:00 Intake Total 360 ml Output Total 600 ml 550 ml Balance -240 ml -550 ml Intake Oral 360 ml Output Urine Total 600 ml 550 ml # Voids 3 5 # Bowel Movements 2 Laboratory Tests 11/12/18 04:00: White Blood Count 6.5, Red Blood Count 3.99L, Hemoglobin 10.7L, Hematocrit 33.9L , Mean Corpuscular Volume 85, Mean Corpuscular Hemoglobin 26.8L, Mean Corpuscular Hemoglobin Concent 31.5L, Red Cell Distribution Width 14.5, Platelet Count 197, Mean Platelet Volume 5.4L, Neutrophils (%) (Auto) 70.5, Lymphocytes (%) (Auto) 18.7L, Monocytes (%) (Auto) 10.3H, Eosinophils (%) (Auto ) 0.1, Basophils (%) (Auto) 0.5, Sodium Level 141, Potassium Level 4.1, Chloride Level 104, Carbon Dioxide Level 31, Anion Gap 6, Blood Urea Nitrogen 30H, Creatinine 1.0, Estimat Glomerular Filtration Rate > 60, Glucose Level 109H , Calcium Level 9.0 Height (Feet): 6 Height (Inches): 0.00 Weight (Pounds): 158 Objective CV RR Lungs B Ronchi + wheezes Abd SNT BS + E No CCE Ernesto Reynoso MD Nov 12, 2018 14:53
[2018-11-12 16:00] VITALS: BP 139/70
--- NOTE | 2018-11-12 17:26 | NUR ---
CASE MANAGEMENT: REVIEW 11/12/2018 SI: RESP DISTRESS T 96.8 HR 82 RR 16 B/P 116/78 SATS 99% ON 2L/NC BUN 30 GLU 109 IS: SOLU MEDROL IV Q12HR HEPARIN SQ Q12HR NITRO TOPICAL TID LEVAQUIN PO QD DOXYCYCLINE PO Q12HR STEP DOWN STATUS DCP: PATIENT IS FROM [facility]
[2018-11-12] MEDS ORDERED: NS 275ml ONE (18:14)
[2018-11-12] MEDS ORDERED: Tubing IV Secondary IV ONE (18:14)
[2018-11-12] MEDS: Solu-MEDROL 40mg Inj IVP SCH (18:22)
--- NOTE | 2018-11-12 18:59 | NUR ---
HAND-OFF: Report given to .CHEKO HERNANDEZ.
--- NOTE | 2018-11-12 19:10 | NUR ---
NURSE NOTES: Received patient from DAVID TAVARES. Patient is comfortably sleeping. On nasal cannula of 3L, showing no signs and symptoms of pain and/or distress. Bed on lowest position, call light within reach. Will continue plan of care.
[2018-11-12 20:00] VITALS: BP 136/61
--- NOTE | 2018-11-12 23:48 | NUR ---
HAND-OFF: Report given to DAVID Epperson. Patient is stable.
--- NOTE | 2018-11-12 23:50 | NUR ---
NURSE NOTES: Received patient from DAVID STILL. Patient asleep, but easily arousable to verbal stimuli. on NC 3L with no respiratory distress noted. o2 saturation 100%.vs stable. afebrile. call light in reach. bed locked and lowest position for safety. will continue to monitor.
[2018-11-13] VITALS: BP 127/63
[2018-11-13] MEDS: Albuterol/Ipratropium 3ml neb HHN PRN ×3 (00:53→17:07)
--- NOTE | 2018-11-13 01:00 | NUR ---
NURSE NOTES: Patient is still congested with cough. no chest pain.Receiving breathing treatment now by RT.Kept high fowlers position. will continue to monitor.
[2018-11-13 04:00] VITALS: BP 147/74
[2018-11-13 05:00] LABS: BASOPHILS % (AUTO) 0.3 % (0.0-2.0); EOSINOPHILS % (AUTO) 0.1 % (0.0-3.0); HEMATOCRIT 35.6 % (42.0-52.0); LYMPHOCYTES % (AUTO) 14.6 % (20.0-45.0); MEAN CORPUSCULAR VOLUME 85 FL (80-99); MONOCYTES % (AUTO) 7.1 % (1.0-10.0); NEUTROPHILS % (AUTO) 77.9 % (45.0-75.0); PLATELET COUNT 198 K/UL (150-450); RED BLOOD COUNT 4.17 M/UL (4.70-6.10); RED CELL DISTRIBUTION WIDTH 14.5 % (11.6-14.8); WHITE BLOOD COUNT 7.5 K/UL (4.8-10.8)
[2018-11-13 05:23] LABS: ANION GAP 5 mmol/L (5-15); BLOOD UREA NITROGEN 28 mg/dL (7-18); CALCIUM 9.3 MG/DL (8.5-10.1); CARBON DIOXIDE 31 MMOL/L (21-32); CHLORIDE 105 MMOL/L (98-107); CREATININE 0.8 MG/DL (0.55-1.30); POTASSIUM 4.5 MMOL/L (3.5-5.1); SODIUM 141 MMOL/L (136-145)
[2018-11-13] MEDS: Nitroglycerin 2% oint pkt TOPIC SCH ×3 (06:40→19:12)
--- NOTE | 2018-11-13 07:31 | NUR ---
HAND-OFF: Report given to ORI TAVARES RN using SBAR. Patient is still sleeping with no respiratory distress noted.
[2018-11-13 08:00] VITALS: BP 165/99
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
--- NOTE | 2018-11-13 08:30 | NUR ---
NURSE NOTES: PT C/O,S OF SOB ,O2 SAT 86 TO 87% ON 3L/MINTS VIA N/C.PT PLACED ON BIPAP BY RT PER M.D ORDERS.WILL CONT TO MONITOR.
--- NOTE | 2018-11-13 08:34 | NUR ---
RESPIRATORY NOTE: Breathing TX Duoneb prn given due to SOB RR 24bpm, lorenza rhonchi wheezes heard upon auscultation. After Tx, put pt on Bipap with the current settings, foam tapes applied on chin, cheeks, and nose bridge to prevent skin breakdown. A small red wound noted on the left cheek outside the Bipap facial mask, DAVID Reid made aware. Pt is resting comfortably in the bed. No resp distress noted. Alarms are on and audible, Bipap is plugged into the red outlet, ambu bag is at bedside. Will continue to monitor. Addendum: 11/13/18 at 1251 by Levi N De La Vega RT The small red wound is unrelated to Bipap used
[2018-11-13] MEDS: Milk of Magnesia 30ml Ud ORAL SCH (09:00)
[2018-11-13] MEDS: Heparin 5000 units/ml inj SUBQ SCH ×2 (09:00→20:57)
[2018-11-13] MEDS: Solu-MEDROL 40mg Inj IVP SCH ×2 (09:06→19:08)
[2018-11-13] MEDS: Levofloxacin 500mg tab ORAL SCH (09:07)
[2018-11-13] MEDS: Bisacodyl EC 5mg tab ORAL SCH (09:07)
[2018-11-13] MEDS: Docusate 100mg cap ORAL SCH ×2 (09:07→19:08)
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
--- NOTE | 2018-11-13 11:32 | General Progress Note ---
Assessment/Plan Assessment/Plan Patient definitely aspirating. Per RN has SOB after each meal. Needs PEG ZAMZAM. To keep NPO. Cannot be downgraded! Subjective Allergies: Coded Allergies: No Known Allergies (Unverified , 11/02/18) Subjective Coughing, + SOB, blanca after meals. all noted! Objective Last 24 Hour Vital Signs Date Time Temp Pulse Resp B/P (MAP) Pulse Ox O2 Delivery O2 Flow Rate FiO2 11/13/18 09:14 107 165/99 11/13/18 08:34 97 22 98 Bi-pap 40 11/13/18 08:34 97 22 98 Facial 40 11/13/18 08:26 102 24 99 Nasal Cannula 3.0 32 11/13/18 08:00 92 11/13/18 08:00 Nasal Cannula 3.0 11/13/18 08:00 40 11/13/18 08:00 97.3 107 24 165/99 (121) 99 11/13/18 07:30 80 17 Nasal Cannula 3.0 32 11/13/18 07:30 Nasal Cannula 3.0 32 11/13/18 07:30 100 Nasal Cannula 3.0 32 11/13/18 06:40 147/74 11/13/18 04:00 3.0 11/13/18 04:00 73 11/13/18 04:00 97.4 79 24 147/74 (98) 100 11/13/18 04:00 Nasal Cannula 3.0 11/13/18 01:03 88 20 99 Nasal Cannula 3.0 32 11/13/18 00:53 83 22 98 Nasal Cannula 3.0 32 11/13/18 00:00 97.6 76 24 127/63 (84) 100 11/13/18 00:00 72 11/13/18 00:00 Nasal Cannula 3.0 11/13/18 00:00 3.0 11/12/18 20:34 82 136/61 11/12/18 20:00 Nasal Cannula 3.0 11/12/18 20:00 97.7 82 24 136/61 (86) 100 11/12/18 20:00 3.0 11/12/18 19:20 Nasal Cannula 3.0 32 11/12/18 19:20 81 18 Nasal Cannula 3.0 32 11/12/18 19:20 100 Nasal Cannula 3.0 32 11/12/18 19:01 78 2/27/19 18:23 139/70 11/12/18 16:00 2.0 11/12/18 16:00 68 11/12/18 16:00 97.5 75 20 139/70 (93) 98 11/12/18 16:00 Nasal Cannula 2.0 11/12/18 13:32 96.8 11/12/18 12:58 116/78 11/12/18 12:19 68 11/12/18 12:00 40 11/12/18 12:00 Nasal Cannula 2.0 11/12/18 12:00 96.8 82 16 116/78 (91) 99 Intake and Output 11/12/18 11/13/18 18:59 06:59 Intake Total 920 ml 200 ml Output Total 1000 ml 850 ml Balance -80 ml -650 ml Intake Oral 920 ml 200 ml Output Urine Total 1000 ml 850 ml # Bowel Movements 1 Laboratory Tests 11/13/18 03:30: White Blood Count 7.5, Red Blood Count 4.17L, Hemoglobin 11.0L, Hematocrit 35.6L , Mean Corpuscular Volume 85, Mean Corpuscular Hemoglobin 26.3L, Mean Corpuscular Hemoglobin Concent 30.9L, Red Cell Distribution Width 14.5, Platelet Count 198, Mean Platelet Volume 5.7L, Neutrophils (%) (Auto) 77.9H, Lymphocytes (%) (Auto) 14.6L, Monocytes (%) (Auto) 7.1, Eosinophils (%) (Auto) 0.1, Basophils (%) (Auto) 0.3, Sodium Level 141, Potassium Level 4.5, Chloride Level 105, Carbon Dioxide Level 31, Anion Gap 5, Blood Urea Nitrogen 28H, Creatinine 0.8, Estimat Glomerular Filtration Rate > 60, Glucose Level 124H, Calcium Level 9.3 Height (Feet): 6 Height (Inches): 0.00 Weight (Pounds): 158 Objective CV RR Lungs B Ronchi + wheezes Abd SNT BS + E No CCE Ernesto Reynoso MD Nov 13, 2018 11:32
--- NOTE | 2018-11-13 11:55 | GI Progress Note ---
Assessment/Plan Problems: (1) Submucosal lesion of esophagus ICD Codes: K22.8 - Other specified diseases of esophagus SNOMED: 565217004 (2) Anemia ICD Codes: D64.9 - Anemia, unspecified SNOMED: 913772174 (3) Iron deficiency ICD Codes: E61.1 - Iron deficiency SNOMED: 94924670 (4) Respiratory distress ICD Codes: R06.03 - Acute respiratory distress SNOMED: 743379412 (5) Mediastinal mass ICD Codes: J98.59 - Other diseases of mediastinum, not elsewhere classified SNOMED: 71754676 Status: not improved, unchanged Status Narrative Discussed with Dr. Arias. Assessment/Plan Recent EGD/EUS performed at [facility] approximately 2 weeks ago, noted with metastatic esophageal submucosal lesion. may need capsule endoscopy r/o source of CA as outpatient PEG tentatively scheduled for tomorrow if stable. - NPO. As needed transfusions PPI twice daily pain mgmt ferrous Sulfate Bowel regimen Follow-up oncology/cardiology recommendations The patient was seen and examined at bedside and all new and available data was reviewed in the patients chart. I agree with the above findings, impression and plan. (Patient seen earlier today. Signature stamp does not reflect patient encounter time.). - Jerry Arias MD Subjective Subjective Esophageal tenderness, SOB and coughing Objective Last 24 Hour Vital Signs Date Time Temp Pulse Resp B/P (MAP) Pulse Ox O2 Delivery O2 Flow Rate FiO2 11/13/18 09:14 107 165/99 11/13/18 08:34 97 22 98 Bi-pap 40 11/13/18 08:34 97 22 98 Facial 40 11/13/18 08:26 102 24 99 Nasal Cannula 3.0 32 11/13/18 08:00 92 11/13/18 08:00 Nasal Cannula 3.0 11/13/18 08:00 40 11/13/18 08:00 97.3 107 24 165/99 (121) 99 11/13/18 07:30 80 17 Nasal Cannula 3.0 32 11/13/18 07:30 Nasal Cannula 3.0 32 11/13/18 07:30 100 Nasal Cannula 3.0 32 11/13/18 06:40 147/74 11/13/18 04:00 3.0 11/13/18 04:00 73 11/13/18 04:00 97.4 79 24 147/74 (98) 100 11/13/18 04:00 Nasal Cannula 3.0 11/13/18 01:03 88 20 99 Nasal Cannula 3.0 32 11/13/18 00:53 83 22 98 Nasal Cannula 3.0 32 11/13/18 00:00 97.6 76 24 127/63 (84) 100 11/13/18 00:00 72 11/13/18 00:00 Nasal Cannula 3.0 11/13/18 00:00 3.0 11/12/18 20:34 82 136/61 11/12/18 20:00 Nasal Cannula 3.0 11/12/18 20:00 97.7 82 24 136/61 (86) 100 11/12/18 20:00 3.0 11/12/18 19:20 Nasal Cannula 3.0 32 11/12/18 19:20 81 18 Nasal Cannula 3.0 32 11/12/18 19:20 100 Nasal Cannula 3.0 32 11/12/18 19:01 78 11/12/18 18:23 139/70 11/12/18 16:00 2.0 11/12/18 16:00 68 11/12/18 16:00 97.5 75 20 139/70 (93) 98 11/12/18 16:00 Nasal Cannula 2.0 11/12/18 13:32 96.8 11/12/18 12:58 116/78 11/12/18 12:19 68 11/12/18 12:00 40 11/12/18 12:00 Nasal Cannula 2.0 11/12/18 12:00 96.8 82 16 116/78 (91) 99 Intake and Output 11/12/18 11/13/18 19:00 07:00 Intake Total 920 ml 450 ml Output Total 1000 ml 850 ml Balance -80 ml -400 ml Intake Oral 920 ml 450 ml Output Urine Total 1000 ml 850 ml # Bowel Movements 1 Laboratory Tests Test 11/13/18 03:30 White Blood Count 7.5 K/UL (4.8-10.8) Red Blood Count 4.17 M/UL (4.70-6.10) L Hemoglobin 11.0 G/DL (14.2-18.0) L Hematocrit 35.6 % (42.0-52.0) L Mean Corpuscular Volume 85 FL (80-99) Mean Corpuscular Hemoglobin 26.3 PG (27.0-31.0) L Mean Corpuscular Hemoglobin Concent 30.9 G/DL (32.0-36.0) L Red Cell Distribution Width 14.5 % (11.6-14.8) Platelet Count 198 K/UL (150-450) Mean Platelet Volume 5.7 FL (6.5-10.1) L Neutrophils (%) (Auto) 77.9 % (45.0-75.0) H Lymphocytes (%) (Auto) 14.6 % (20.0-45.0) L Monocytes (%) (Auto) 7.1 % (1.0-10.0) Eosinophils (%) (Auto) 0.1 % (0.0-3.0) Basophils (%) (Auto) 0.3 % (0.0-2.0) Sodium Level 141 MMOL/L (136-145) Potassium Level 4.5 MMOL/L (3.5-5.1) Chloride Level 105 MMOL/L (98-107) Carbon Dioxide Level 31 MMOL/L (21-32) Anion Gap 5 mmol/L (5-15) Blood Urea Nitrogen 28 mg/dL (7-18) H Creatinine 0.8 MG/DL (0.55-1.30) Estimat Glomerular Filtration Rate > 60 mL/min (>60) Glucose Level 124 MG/DL (74-106) H Calcium Level 9.3 MG/DL (8.5-10.1) Height (Feet): 6 Height (Inches): 0.00 Weight (Pounds): 158 General Appearance: no apparent distress Cardiovascular: normal rate Respiratory/Chest: no respiratory distress, other - BIPAP Abdominal Exam: normal bowel sounds, non tender, soft Extremities: normal range of motion, non-tender Reva Wilson NP Nov 13, 2018 11:55
[2018-11-13 12:00] VITALS: BP 143/74
--- NOTE | 2018-11-13 12:09 | NUR ---
RD ASSESSMENT & RECOMMENDATIONS SEE CARE ACTIVITY FOR COMPLETE ASSESSMENT DAILY ESTIMATED NEEDS: Needs based on Underweight, pulmonary, 67 30-35 kcals/kg 2726-0953 total kcals 1-1.5 g protein/kg 67-100 g total protein 25-30 mL/kg 7587-2467 total fluid mLs NUTRITION DIAGNOSIS: * Increased kcal and protein needs R/T underweight status, recent significant wt loss, respiratory status as evidenced by pt is 71% IBW, w/ possible 8.3lbs/5.3% wt loss in 10 days, significant, w/ generalized moderate wasting, +SOB requiring prn BIPAP. * Swallowing difficulty R/T dysphagia as evidenced by pt aspirating, made NPO per MD, recommending PEG placement. CURRENT DIET:Regular-> NOW MADE NPO PO DIET RECOMMENDATIONS: IF SAFE FOR PO -> liberalized REGULAR/ texture per [employer] ENTERAL NUTRITION RECOMMENDATIONS: Osmolite 1.5 @ 60ml/hr x 24 hrs to provide 1440ml, 2160kcal, 90g prot, 1097ml free water * S/p PEG placement, initiate Osmolite 1.5 @ 20ml/hr x 6 hrs * Advance 10ml q 4-6 hrs as tolerated to goal rate. * HOB over 30 degrees/ water flush per MD ADDITIONAL RECOMMENDATIONS: 1) Obtain a standing weight as able for accurate CBW 2) Weekly wts given recent wt loss and underweight status 3) Monitor lytes and BGs daily w/ TF, replete lytes as needed . .
[2018-11-13] MEDS: 1/2NS w/KCl 20mEq 1000ml 1,000 ML IV SCH (14:53)
[2018-11-13 16:00] VITALS: BP 152/87
--- NOTE | 2018-11-13 17:22 | NUR ---
RESPIRATORY NOTE: Breathing TX Duoneb prn given due to SOB RR 26bpm, lorenza rhonchi wheezes heard upon auscultation. After Tx, put pt on Bipap with the current settings, protected gel applied to prevent skin breakdown. DAVID Reid made aware. Pt is resting comfortably in the bed. No resp distress noted. Alarms are on and audible, Bipap is plugged into the red outlet, ambu bag is at bedside. Will continue to monitor.
--- NOTE | 2018-11-13 19:12 | NUR ---
HAND-OFF: Report given to .CHEKO HERNANDEZ.
--- NOTE | 2018-11-13 19:20 | NUR ---
NURSE NOTES: Received PT from CHAITANYA HERNANDEZ. DARLENE at bed side. pt vital signs are stable. will continue plan of care.
--- NOTE | 2018-11-13 19:31 | NUR ---
RESPIRATORY NOTE: Pt asked to be placed on BiPAP for prn use. Pt previously on 3L NC. Pt now on BiPAP 08/20, backup rate 16, 40%. Pt on a Facial mask, skin intact, no redness/breakdowns noted. [id number] used on pt's face, covering nosebridge/cheeks to prevent from any irritations. Pt alert/awake, follows commands. B/S lorenza. rhonchi, dry, nonproductive cough. BiPAP plugged into red outlet. Pt in no apparent distress at this time, toelrating BiPAP well. Will continue plan of care.
[2018-11-13 20:00] VITALS: BP 158/94
[2018-11-13] MEDS: HYDROcodone/Acetamin 10/325 tab ORAL PRN (20:57)
[2018-11-14] VITALS (10 sets, daily range): BP systolic 110–153; BP diastolic 60–83
[2018-11-14] MEDS: HYDROcodone/Acetamin 10/325 tab ORAL PRN ×2 (03:47→15:06)
[2018-11-14] MEDS: Nitroglycerin 2% oint pkt TOPIC SCH ×3 (05:38→18:00)
[2018-11-14 06:44] LABS: BASOPHILS % (AUTO) 0.4 % (0.0-2.0); EOSINOPHILS % (AUTO) 0.1 % (0.0-3.0); HEMATOCRIT 37.3 % (42.0-52.0); HEMOGLOBIN 11.9 G/DL (14.2-18.0); LYMPHOCYTES % (AUTO) 16.5 % (20.0-45.0); MEAN CORPUSCULAR VOLUME 85 FL (80-99); MONOCYTES % (AUTO) 7.6 % (1.0-10.0); NEUTROPHILS % (AUTO) 75.4 % (45.0-75.0); PLATELET COUNT 227 K/UL (150-450); RED CELL DISTRIBUTION WIDTH 14.5 % (11.6-14.8); WHITE BLOOD COUNT 9.1 K/UL (4.8-10.8)
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
[2018-11-14 07:16] LABS: ANION GAP 8 mmol/L (5-15); BLOOD UREA NITROGEN 25 mg/dL (7-18); CALCIUM 9.8 MG/DL (8.5-10.1); CARBON DIOXIDE 30 MMOL/L (21-32); CHLORIDE 102 MMOL/L (98-107); CREATININE 0.9 MG/DL (0.55-1.30); POTASSIUM 4.3 MMOL/L (3.5-5.1); SODIUM 139 MMOL/L (136-145)
--- NOTE | 2018-11-14 07:21 | NUR ---
NURSE NOTES: Received report RN Charlotte/Demetri ,patient asleep,head elevated,no distress,observe aspiration precaution,NPO
--- NOTE | 2018-11-14 07:35 | NUR ---
HAND-OFF: Report given to Patricia HERNANDEZ.
[2018-11-14] MEDS: Milk of Magnesia 30ml Ud ORAL SCH (08:39)
[2018-11-14] MEDS: Levofloxacin 500mg tab ORAL SCH (08:40)
[2018-11-14] MEDS: Docusate 100mg cap ORAL SCH (08:40)
[2018-11-14] MEDS: Solu-MEDROL 40mg Inj IVP SCH ×2 (08:40→18:20)
[2018-11-14] MEDS: Bisacodyl EC 5mg tab ORAL SCH (08:40)
[2018-11-14] MEDS: Heparin 5000 units/ml inj SUBQ SCH ×2 (09:00→21:00)
[2018-11-14] MEDS: 1/2NS w/KCl 20mEq 1000ml 1,000 ML IV SCH (09:08)
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
--- NOTE | 2018-11-14 13:05 | NUR ---
NURSE NOTES: Wtih patient to GI lab with pvc monitor,stable 2 L NC,report given to JULIO HERNANDEZ-GI lab
--- NOTE | 2018-11-14 13:06 | GI Progress Note ---
Assessment/Plan Problems: (1) Mediastinal mass ICD Codes: J98.59 - Other diseases of mediastinum, not elsewhere classified SNOMED: 77618969 (2) Respiratory distress ICD Codes: R06.03 - Acute respiratory distress SNOMED: 247302720 (3) Anemia ICD Codes: D64.9 - Anemia, unspecified SNOMED: 078292310 (4) Iron deficiency ICD Codes: E61.1 - Iron deficiency SNOMED: 88480799 (5) COPD exacerbation ICD Codes: J44.1 - Chronic obstructive pulmonary disease with (acute) exacerbation SNOMED: 465883740 Assessment/Plan plan PEG for today Subjective Gastrointestinal/Abdominal: Reports: no symptoms Objective Last 24 Hour Vital Signs Date Time Temp Pulse Resp B/P (MAP) Pulse Ox O2 Delivery O2 Flow Rate FiO2 11/14/18 11:42 87 21 99 Facial 40 11/14/18 08:41 85 115/67 11/14/18 08:33 Nasal Cannula 3.0 11/14/18 08:31 98.6 85 22 115/67 (83) 96 11/14/18 07:30 3.0 11/14/18 06:40 Nasal Cannula 3.0 32 11/14/18 06:40 97 Nasal Cannula 3.0 32 11/14/18 06:40 84 16 Nasal Cannula 3.0 32 11/14/18 05:38 130/72 11/14/18 04:00 3.0 11/14/18 04:00 Nasal Cannula 3.0 11/14/18 04:00 97.3 63 20 130/72 (91) 96 63 11/14/18 03:45 67 11/14/18 00:00 Nasal Cannula 3.0 11/14/18 00:00 98.5 70 18 110/60 (77) 97 11/13/18 23:33 61 11/13/18 20:56 72 158/94 11/13/18 20:00 98.5 72 17 158/94 (115) 98 11/13/18 20:00 40 11/13/18 20:00 Nasal Cannula 3.0 11/13/18 19:29 94 21 99 Facial 40 11/13/18 19:12 152/87 11/13/18 19:06 Nasal Cannula 3.0 32 11/13/18 19:06 93 20 Nasal Cannula 3.0 32 11/13/18 19:06 99 Nasal Cannula 3.0 32 11/13/18 19:02 84 11/13/18 17:22 77 19 98 Bi-pap 40 11/13/18 17:22 77 19 99 Facial 40 11/13/18 17:08 79 26 97 Nasal Cannula 3.0 32 11/13/18 16:00 99.5 77 20 152/87 (108) 99 11/13/18 16:00 Nasal Cannula 3.0 11/13/18 16:00 74 11/13/18 16:00 40 11/13/18 14:53 165/99 Intake and Output 11/13/18 11/14/18 19:00 07:00 Intake Total 420 ml 550 ml Output Total 450 ml Balance -30 ml 550 ml Intake Oral 220 ml IV Total 200 ml 550 ml Output Urine Total 450 ml # Voids 3 # Bowel Movements 2 Laboratory Tests Test 11/14/18 05:36 White Blood Count 9.1 K/UL (4.8-10.8) Red Blood Count 4.40 M/UL (4.70-6.10) L Hemoglobin 11.9 G/DL (14.2-18.0) L Hematocrit 37.3 % (42.0-52.0) L Mean Corpuscular Volume 85 FL (80-99) Mean Corpuscular Hemoglobin 26.9 PG (27.0-31.0) L Mean Corpuscular Hemoglobin Concent 31.8 G/DL (32.0-36.0) L Red Cell Distribution Width 14.5 % (11.6-14.8) Platelet Count 227 K/UL (150-450) Mean Platelet Volume 5.5 FL (6.5-10.1) L Neutrophils (%) (Auto) 75.4 % (45.0-75.0) H Lymphocytes (%) (Auto) 16.5 % (20.0-45.0) L Monocytes (%) (Auto) 7.6 % (1.0-10.0) Eosinophils (%) (Auto) 0.1 % (0.0-3.0) Basophils (%) (Auto) 0.4 % (0.0-2.0) Prothrombin Time 11.0 SEC (9.30-11.50) Prothromb Time International Ratio 1.0 (0.9-1.1) Activated Partial Thromboplast Time 26 SEC (23-33) Sodium Level 139 MMOL/L (136-145) Potassium Level 4.3 MMOL/L (3.5-5.1) Chloride Level 102 MMOL/L (98-107) Carbon Dioxide Level 30 MMOL/L (21-32) Anion Gap 8 mmol/L (5-15) Blood Urea Nitrogen 25 mg/dL (7-18) H Creatinine 0.9 MG/DL (0.55-1.30) Estimat Glomerular Filtration Rate > 60 mL/min (>60) Glucose Level 94 MG/DL (74-106) Calcium Level 9.8 MG/DL (8.5-10.1) Height (Feet): 6 Height (Inches): 0.00 Weight (Pounds): 158 General Appearance: alert Cardiovascular: normal rate Respiratory/Chest: decreased breath sounds Abdominal Exam: soft Extremities: non-tender Jerry Arias MD Nov 14, 2018 13:06
[2018-11-14] MEDS ORDERED: NS 500ML IVPB ONE (13:19)
--- NOTE | 2018-11-14 13:23 | Endoscopy Procedure Note ---
Endoscopy Procedure Note General Indication for Procedure: dysphagia Procedures Performed: EGD, PEG Operative Findings/Diagnosis: same Specimen: none Pt Tolerated Procedure Well: Yes Estimated Blood Loss: none Anesthesia Anesthesiologist: gia Anesthesia: MAC Inserted Devices Implant(s) used?: No GI Core Measures 50 yrs or older w/o bx or poly: Not Applicable 10yrs. F/U not recommended: Not Applicable Jerry Arias MD Nov 14, 2018 13:23
--- NOTE | 2018-11-14 13:47 | Immediate Post-Op Evaluation ---
Immediate Post-Op Evalulation Immediate Post-Op Evalulation Procedure: EGD PEG tube placement Date of Evaluation: Nov 14, 2018 Time of Evaluation: 13:46 IV Fluids: 300 Blood Products: none Estimated Blood Loss: min Urinary Output: none Blood Pressure Systolic: 156 Blood Pressure Diastolic: 76 Pulse Rate: 83 Respiratory Rate: 25 O2 Sat by Pulse Oximetry: 96 Temperature (Fahrenheit): 97.6 Pain Score (1-10): 3 Nausea: No Vomiting: No Complications none Patient Status: awake, patent, none Hydration Status: adequate Akin Baxter MD Nov 14, 2018 13:47
--- NOTE | 2018-11-14 14:16 | NUR ---
NURSE NOTES: Patient arrived from GI lab with RN MERLY,report given by her patient awake G tube with abdominal binder,will start feeding
--- NOTE | 2018-11-14 14:19 | 48 Hour Post Anesthesia Eval ---
Post Anesthesia Evaluation Procedure: EGD PEG tube placement Date of Evaluation: Nov 14, 2018 Time of Evaluation: 14:18 Blood Pressure Systolic: 158 0: 84 Pulse Rate: 78 Respiratory Rate: 26 Temperature (Fahrenheit): 97.6 O2 Sat by Pulse Oximetry: 98 Airway: patent Nausea: No Vomiting: No Pain Intensity: 1 Hydration Status: adequate Cardiopulmonary Status: stable Mental Status/LOC: patient returned to baseline Follow-up Care/Observations: n/a Post-Anesthesia Complications: none Follow-up care needed: N/A Akin Baxter MD Nov 14, 2018 14:19
--- NOTE | 2018-11-14 14:33 | General Progress Note ---
Assessment/Plan Assessment/Plan s/p PEg. Monitor. Continue Respiratory Therapy, IV Abx. Subjective Allergies: Coded Allergies: No Known Allergies (Unverified , 11/02/18) Subjective s/p PEG Objective Last 24 Hour Vital Signs Date Time Temp Pulse Resp B/P (MAP) Pulse Ox O2 Delivery O2 Flow Rate FiO2 11/14/18 14:19 78 26 98 11/14/18 14:04 97.4 74 25 138/81 94 Nasal Cannula 3 11/14/18 13:55 73 25 132/73 96 Nasal Cannula 3 11/14/18 13:50 73 26 146/83 95 Nasal Cannula 3 11/14/18 13:48 97.8 76 24 148/74 96 Nasal Cannula 3 11/14/18 13:47 83 25 96 11/14/18 11:42 87 21 99 Facial 40 11/14/18 08:41 85 115/67 11/14/18 08:33 Nasal Cannula 3.0 11/14/18 08:31 98.6 85 22 115/67 (83) 96 11/14/18 07:30 3.0 11/14/18 06:40 Nasal Cannula 3.0 32 11/14/18 06:40 97 Nasal Cannula 3.0 32 11/14/18 06:40 84 16 Nasal Cannula 3.0 32 11/14/18 05:38 130/72 11/14/18 04:00 3.0 11/14/18 04:00 Nasal Cannula 3.0 11/14/18 04:00 97.3 63 20 130/72 (91) 96 63 11/14/18 03:45 67 11/14/18 00:00 Nasal Cannula 3.0 11/14/18 00:00 98.5 70 18 110/60 (77) 97 11/13/18 23:33 61 11/13/18 20:56 72 158/94 11/13/18 20:00 98.5 72 17 158/94 (115) 98 11/13/18 20:00 40 11/13/18 20:00 Nasal Cannula 3.0 11/13/18 19:29 94 21 99 Facial 40 11/13/18 19:12 152/87 11/13/18 19:06 Nasal Cannula 3.0 32 11/13/18 19:06 93 20 Nasal Cannula 3.0 32 11/13/18 19:06 99 Nasal Cannula 3.0 32 11/13/18 19:02 84 11/13/18 17:22 77 19 98 Bi-pap 40 11/13/18 17:22 77 19 99 Facial 40 11/13/18 17:08 79 26 97 Nasal Cannula 3.0 32 11/13/18 16:00 99.5 77 20 152/87 (108) 99 11/13/18 16:00 Nasal Cannula 3.0 11/13/18 16:00 74 11/13/18 16:00 40 11/13/18 14:53 165/99 Intake and Output 11/13/18 11/14/18 19:00 07:00 Intake Total 420 ml 550 ml Output Total 450 ml Balance -30 ml 550 ml Intake Oral 220 ml IV Total 200 ml 550 ml Output Urine Total 450 ml # Voids 3 # Bowel Movements 2 Laboratory Tests 11/14/18 05:36: White Blood Count 9.1, Red Blood Count 4.40L, Hemoglobin 11.9L, Hematocrit 37.3L , Mean Corpuscular Volume 85, Mean Corpuscular Hemoglobin 26.9L, Mean Corpuscular Hemoglobin Concent 31.8L, Red Cell Distribution Width 14.5, Platelet Count 227, Mean Platelet Volume 5.5L, Neutrophils (%) (Auto) 75.4H, Lymphocytes (%) (Auto) 16.5L, Monocytes (%) (Auto) 7.6, Eosinophils (%) (Auto) 0.1, Basophils (%) (Auto) 0.4, Prothrombin Time 11.0, Prothromb Time International Ratio 1.0, Activated Partial Thromboplast Time 26, Sodium Level 139, Potassium Level 4.3, Chloride Level 102, Carbon Dioxide Level 30, Anion Gap 8, Blood Urea Nitrogen 25H, Creatinine 0.9, Estimat Glomerular Filtration Rate > 60, Glucose Level 94, Calcium Level 9.8 Height (Feet): 6 Height (Inches): 0.00 Weight (Pounds): 158 Objective CV RR Lungs B Ronchi + wheezes Abd SNT BS +. New PEG. E No CCE Ernesto Reynoso MD Nov 14, 2018 14:33
[2018-11-14] MEDS ORDERED: Propofol 200mg/20ml IV ONE (15:00)
[2018-11-14] MEDS ORDERED: Midazolam 2mg/2ml Inj ONE (15:00)
[2018-11-14] MEDS ORDERED: fentaNYL 100 mcg/2 mL IV ONE (15:00)
--- NOTE | 2018-11-14 15:01 | NUR ---
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 97.4 HR 74 RR 25 B/P 138/81 3L NC O2 SAT @ 98% BUN 25 IS: IVF NS @ 50ML/HR SOLU MEDROL IV LEVAQUIN GT VIBRAMYCIN GT HEPARIN SUBC STEP DOWN STATUS
--- NOTE | 2018-11-14 16:45 | Procedure Note ---
DATE OF PROCEDURE: 11/14/2018 SURGEON: Jerry Arias M.D. REFERRING PHYSICIAN: Ernesto Reynoso M.D. PROCEDURE: Upper endoscopy with PEG placement. ANESTHESIA: Per Dr. Baxter. INSTRUMENT: Olympus adult flexible upper endoscope. INDICATION: Dysphagia. REASON FOR PROCEDURE: The procedure, risks, benefits, and possible consequences, including hemorrhage, aspiration, perforation and infection, and alternative treatments, were explained to the patient/legal guardian by Dr. Jerry Arias and the patient/legal guardian understood and accepted these risks. PROCEDURE IN DETAIL: After informed consent was obtained and the patient was adequately sedated, Olympus upper endoscope was advanced from the mouth into the second portion of duodenum and retroflexion was performed in the stomach. 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 Then, under endoscopic guidance and under sterile condition, a 20-[place] pull type of G-tube was successfully placed in the epigastric area. The distance from the tip of the tube to skin was about 2.5 cm in size. The patient tolerated the procedure very well without any complication. SUMMARY OF FINDINGS: Status post successful PEG placement. RECOMMENDATIONS: 1. Abdominal binder. 2. Elevate the head of the bed at all times. 3. G-tube flush. 4. G-tube care. 5. Start tube feeding later today. 6. The patient currently on antibiotics. I want to thank Dr. Reynoso for this kind referral. Jerry Arias M.D. DR: LAKIA JOB#: [id number] CC:
[2018-11-14] MEDS: Albuterol/Ipratropium 3ml neb HHN PRN (17:49)
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
--- NOTE | 2018-11-14 19:15 | NUR ---
HAND-OFF: Report given to RN Ivy patient watching TV on 2L NC no ditress.
--- NOTE | 2018-11-14 20:00 | NUR ---
NURSE NOTES: Received Pt is resting on the bed and awake and alert. No sign of acute distress noted. Denied pain at this time. G-tube site dressing is intact and no sign of acute bleeding noted. Applied abdominal binder. On Vital AF1.2 @ 10cc/hr running. No residual noted. Pt removed IV and inserted new IV on Lt. forearm. On BiPAP 12/5, FIO2 40% and SaO2 99-100% noted. Noted moderated amount soft BM. Placed fall precaution. Will continue to care plan.
[2018-11-14] MEDS: Docusate 100mg/10ml Liq GT SCH (21:00)
[2018-11-14] MEDS: HYDROcodone/Acetamin 10/325 tab GT PRN (21:04)
[2018-11-15] VITALS: BP 147/74
[2018-11-15] MEDS: Albuterol/Ipratropium 3ml neb HHN PRN ×2 (02:22→07:56)
[2018-11-15] MEDS: HYDROcodone/Acetamin 10/325 tab GT PRN ×4 (02:40→18:33)
[2018-11-15 04:00] VITALS: BP 130/62
--- NOTE | 2018-11-15 04:30 | Progress Note ---
DATE: 11/14/2018 CARDIOLOGY PROGRESS NOTE SUBJECTIVE: The patient is status post PEG placement with no complications perioperatively. EGD findings are otherwise unremarkable. The patient has no apparent chest pain, but does have congestion and shortness of breath. OBJECTIVE: VITAL SIGNS: Blood pressure 115/67, pulse 85, respiratory rate 22, afebrile, and oxygen saturation on 3 L 96%. HEENT: Temporal wasting. LUNGS: Moderate rhonchi. CARDIAC: Regular rhythm and rate. Normal S1 and S2. ABDOMEN: Soft. EXTREMITIES: No edema. LABORATORY DATA: White count 9.1 and hemoglobin 11.9. Potassium 4.3, BUN 25, and creatinine 0.9. IMPRESSION: 1. Dysphagia. 2. COPD. 3. HIV/AIDS. 4. Pleuritic chest pain. 5. Status post PEG for dysphagia. 6. Paroxysmal atrial ectopy. PLAN: 1. Recheck lab studies including magnesium. 2. Nutrition by feeding tube once cleared by GI. 3. Respiratory hygiene. 4. Continued nitrates. 5. No anti-platelet therapy due to bleeding risk. Paulo Barnhart M.D. DR: ABDULLAHI JOB#: [id number] CC:
[2018-11-15] MEDS: 1/2NS w/KCl 20mEq 1000ml 1,000 ML IV SCH (05:40)
[2018-11-15] MEDS: Nitroglycerin 2% oint pkt TOPIC SCH ×3 (05:41→17:55)
--- NOTE | 2018-11-15 07:31 | NUR ---
HAND-OFF: Report given to DAVID Villanueva. Pt is resting on the bed and no sign of acute distress noted.
[2018-11-15 07:43] LABS: BASOPHILS % (AUTO) 0.2 % (0.0-2.0); HEMATOCRIT 39.2 % (42.0-52.0); HEMOGLOBIN 12.3 G/DL (14.2-18.0); LYMPHOCYTES % (AUTO) 13.1 % (20.0-45.0); MEAN CORPUSCULAR VOLUME 84 FL (80-99); MONOCYTES % (AUTO) 6.2 % (1.0-10.0); NEUTROPHILS % (AUTO) 80.4 % (45.0-75.0); PLATELET COUNT 238 K/UL (150-450); RED BLOOD COUNT 4.66 M/UL (4.70-6.10); RED CELL DISTRIBUTION WIDTH 14.8 % (11.6-14.8); WHITE BLOOD COUNT 9.7 K/UL (4.8-10.8)
[2018-11-15 08:00] VITALS: BP 167/107
--- NOTE | 2018-11-15 08:06 | General Progress Note ---
Assessment/Plan Problem List: (1) Mediastinal mass ICD Codes: J98.59 - Other diseases of mediastinum, not elsewhere classified SNOMED: 80844177 (2) Respiratory distress ICD Codes: R06.03 - Acute respiratory distress SNOMED: 306680327 (3) Anemia ICD Codes: D64.9 - Anemia, unspecified SNOMED: 148950621 (4) Iron deficiency ICD Codes: E61.1 - Iron deficiency SNOMED: 16259387 (5) COPD exacerbation ICD Codes: J44.1 - Chronic obstructive pulmonary disease with (acute) exacerbation SNOMED: 899172674 Assessment/Plan s/p PEG placement tolerating TF at this time at 30 cc fu labs dc planning per primary team fu oncology Subjective ROS Limited/Unobtainable: Yes Allergies: Coded Allergies: No Known Allergies (Unverified , 11/02/18) Objective Last 24 Hour Vital Signs Date Time Temp Pulse Resp B/P (MAP) Pulse Ox O2 Delivery O2 Flow Rate FiO2 11/15/18 07:55 86 22 94 Nasal Cannula 3.0 32 11/15/18 07:54 86 22 Nasal Cannula 3.0 32 11/15/18 07:54 Nasal Cannula 3.0 32 11/15/18 07:54 94 Nasal Cannula 3.0 32 11/15/18 05:41 130/65 11/15/18 05:16 77 18 100 Facial 40 11/15/18 04:00 66 11/15/18 04:00 97.6 63 24 130/62 (84) 100 11/15/18 04:00 40 11/15/18 04:00 Nasal Cannula 3.0 11/15/18 02:38 81 18 99 Facial 40 11/15/18 02:32 80 20 99 Nasal Cannula 3.0 32 11/15/18 02:22 80 22 96 Nasal Cannula 3.0 32 11/15/18 00:00 Nasal Cannula 3.0 11/15/18 00:00 61 11/15/18 00:00 3.0 11/15/18 00:00 97.7 76 24 147/74 (98) 100 11/14/18 21:03 95 153/99 11/14/18 20:00 Nasal Cannula 3.0 11/14/18 20:00 105 11/14/18 20:00 97.6 95 24 153/79 (103) 100 11/14/18 20:00 40 11/14/18 19:21 93 29 98 Facial 40 11/14/18 19:20 98 Nasal Cannula 3.0 32 11/14/18 19:20 92 16 Nasal Cannula 3.0 32 11/14/18 19:20 Nasal Cannula 3.0 32 11/14/18 17:50 84 19 98 Nasal Cannula 3.0 32 11/14/18 17:40 81 22 98 Nasal Cannula 3.0 32 11/14/18 16:00 68 11/14/18 16:00 98.2 77 24 130/74 (92) 97 11/14/18 16:00 Nasal Cannula 3.0 11/14/18 16:00 3.0 11/14/18 15:05 123/68 11/14/18 14:35 3.0 11/14/18 14:35 Nasal Cannula 3.0 11/14/18 14:35 97.2 71 22 123/68 (86) 95 11/14/18 14:19 78 26 98 11/14/18 14:04 97.4 74 25 138/81 94 Nasal Cannula 3 11/14/18 13:55 73 25 132/73 96 Nasal Cannula 3 11/14/18 13:50 73 26 146/83 95 Nasal Cannula 3 11/14/18 13:48 97.8 76 24 148/74 96 Nasal Cannula 3 11/14/18 13:47 83 25 96 11/14/18 11:42 87 21 99 Facial 40 11/14/18 11:38 70 11/14/18 08:41 85 115/67 11/14/18 08:33 Nasal Cannula 3.0 11/14/18 08:31 98.6 85 22 115/67 (83) 96 Intake and Output 11/14/18 11/15/18 18:59 06:59 Intake Total 880 ml 746 ml Output Total 500 ml 800 ml Balance 380 ml -54 ml Intake Oral 120 ml Free Water 60 ml IV Total 700 ml 566 ml Tube Feeding 180 ml Output Urine Total 500 ml 800 ml Estimated Blood Loss 0 ml # Bowel Movements 2 Laboratory Tests 11/15/18 04:04: White Blood Count 9.7, Red Blood Count 4.66L, Hemoglobin 12.3L, Hematocrit 39.2L , Mean Corpuscular Volume 84, Mean Corpuscular Hemoglobin 26.5L, Mean Corpuscular Hemoglobin Concent 31.5L, Red Cell Distribution Width 14.8, Platelet Count 238, Mean Platelet Volume 6.1L, Neutrophils (%) (Auto) 80.4H, Lymphocytes (%) (Auto) 13.1L, Monocytes (%) (Auto) 6.2, Eosinophils (%) (Auto) 0.0, Basophils (%) (Auto) 0.2 Height (Feet): 6 Height (Inches): 0.00 Weight (Pounds): 158 General Appearance: alert EENT: normal ENT inspection Neck: supple Cardiovascular: tachycardia Respiratory/Chest: decreased breath sounds Abdomen: normal bowel sounds, non tender, soft Extremities: non-tender Jerry Arias MD Nov 15, 2018 08:05
--- NOTE | 2018-11-15 08:53 | NUR ---
RESPIRATORY NOTE: Pt placed on BIPAP due to SOB and use of accessory muscles. Patient was also given a PRN duo neb, BIPAP settings 12/5, 40% back up rate of 16 will continue to monitor patient.
[2018-11-15] MEDS: Fleet's Enema 133ml RECTAL SCH (09:00)
[2018-11-15] MEDS: Milk of Magnesia 30ml Ud ORAL SCH (09:05)
[2018-11-15] MEDS: Solu-MEDROL 40mg Inj IVP SCH ×2 (09:05→17:55)
[2018-11-15] MEDS: Levofloxacin 500mg tab GT SCH (09:06)
[2018-11-15] MEDS: Ferrous Sulfate 300 MG/5 ML UDC GT SCH (09:06)
[2018-11-15] MEDS: Docusate 100mg/10ml Liq GT SCH ×2 (09:06→21:12)
[2018-11-15] MEDS: Heparin 5000 units/ml inj SUBQ SCH ×2 (09:15→21:14)
--- NOTE | 2018-11-15 10:03 | Pulmonology Progress Note ---
Assessment/Plan Assessment/Plan COPD Exacerbation HIV GERD Chronic respiratory failure PLAN care noted and reviewed respiratory care will attempt to wean off BiPAP Discussed with DAVID Villanueva Subjective Interval Events: Back on BiPAP this AM due to SOB Constitutional: Reports: no symptoms HEENT: Repors: no symptoms Respiratory: Reports: no symptoms Cardiovascular: Reports: no symptoms Gastrointestinal/Abdominal: Reports: no symptoms Genitourinary: Reports: no symptoms Allergies: Coded Allergies: No Known Allergies (Unverified , 11/02/18) Objective Last 24 Hour Vital Signs Date Time Temp Pulse Resp B/P (MAP) Pulse Ox O2 Delivery O2 Flow Rate FiO2 11/15/18 09:06 77 130/65 11/15/18 08:52 77 18 100 Facial 40 11/15/18 07:55 86 22 94 Nasal Cannula 3.0 32 11/15/18 07:54 86 22 Nasal Cannula 3.0 32 11/15/18 07:54 Nasal Cannula 3.0 32 11/15/18 07:54 94 Nasal Cannula 3.0 32 11/15/18 05:41 130/65 11/15/18 05:16 77 18 100 Facial 40 11/15/18 04:00 66 11/15/18 04:00 97.6 63 24 130/62 (84) 100 11/15/18 04:00 40 11/15/18 04:00 Nasal Cannula 3.0 11/15/18 02:38 81 18 99 Facial 40 11/15/18 02:32 80 20 99 Nasal Cannula 3.0 32 11/15/18 02:22 80 22 96 Nasal Cannula 3.0 32 11/15/18 00:00 Nasal Cannula 3.0 11/15/18 00:00 61 11/15/18 00:00 3.0 11/15/18 00:00 97.7 76 24 147/74 (98) 100 11/14/18 21:03 95 153/99 11/14/18 20:00 Nasal Cannula 3.0 11/14/18 20:00 105 11/14/18 20:00 97.6 95 24 153/79 (103) 100 11/14/18 20:00 40 11/14/18 19:21 93 29 98 Facial 40 11/14/18 19:20 98 Nasal Cannula 3.0 32 11/14/18 19:20 92 16 Nasal Cannula 3.0 32 11/14/18 19:20 Nasal Cannula 3.0 32 11/14/18 17:50 84 19 98 Nasal Cannula 3.0 32 11/14/18 17:40 81 22 98 Nasal Cannula 3.0 32 11/14/18 16:00 68 11/14/18 16:00 98.2 77 24 130/74 (92) 97 11/14/18 16:00 Nasal Cannula 3.0 11/14/18 16:00 3.0 11/14/18 15:05 123/68 11/14/18 14:35 3.0 11/14/18 14:35 Nasal Cannula 3.0 11/14/18 14:35 97.2 71 22 123/68 (86) 95 11/14/18 14:19 78 26 98 11/14/18 14:04 97.4 74 25 138/81 94 Nasal Cannula 3 11/14/18 13:55 73 25 132/73 96 Nasal Cannula 3 11/14/18 13:50 73 26 146/83 95 Nasal Cannula 3 11/14/18 13:48 97.8 76 24 148/74 96 Nasal Cannula 3 11/14/18 13:47 83 25 96 11/14/18 11:42 87 21 99 Facial 40 11/14/18 11:38 70 Intake and Output 11/14/18 11/15/18 19:00 07:00 Intake Total 940 ml 766 ml Output Total 500 ml 800 ml Balance 440 ml -34 ml Intake Oral 120 ml Free Water 60 ml IV Total 750 ml 566 ml Tube Feeding 10 ml 200 ml Output Urine Total 500 ml 800 ml Estimated Blood Loss 0 ml # Bowel Movements 2 General Appearance: no acute distress HEENT: normocephalic Respiratory/Chest: chest wall non-tender, decreased breath sounds Cardiovascular: normal peripheral pulses, normal rate Abdomen: normal bowel sounds, soft, non tender Extremities: no cyanosis Laboratory Tests 11/15/18 04:04: White Blood Count 9.7, Red Blood Count 4.66L, Hemoglobin 12.3L, Hematocrit 39.2L , Mean Corpuscular Volume 84, Mean Corpuscular Hemoglobin 26.5L, Mean Corpuscular Hemoglobin Concent 31.5L, Red Cell Distribution Width 14.8, Platelet Count 238, Mean Platelet Volume 6.1L, Neutrophils (%) (Auto) 80.4H, Lymphocytes (%) (Auto) 13.1L, Monocytes (%) (Auto) 6.2, Eosinophils (%) (Auto) 0.0, Basophils (%) (Auto) 0.2, Sodium Level [Pending], Potassium Level [Pending] , Chloride Level [Pending], Carbon Dioxide Level [Pending], Blood Urea Nitrogen [Pending], Creatinine [Pending], Estimat Glomerular Filtration Rate [Pending], Glucose Level [Pending], Calcium Level [Pending] Current Medications Medications (Trade) Dose Ordered Sig/Luis Route PRN Reason Start Time Stop Time Status Last Admin Dose Admin Acetaminophen (Tylenol) 650 mg Q6H PRN ORAL Pain Scale (3-5) 11/14/18 19:00 12/08/18 18:59 Acetaminophen/ Hydrocodone Bitart ([place] 10/325) 1 tab Q4H PRN GT For Pain greater than 5 11/14/18 19:45 11/15/18 23:14 11/15/18 08:30 Albuterol/ Ipratropium (Albuterol/ Ipratropium) 3 ml Q6H PRN HHN Shortness of Breath 11/14/18 16:00 11/19/18 15:59 11/15/18 07:56 Bisacodyl (Dulcolax) 10 mg DAILYPRN PRN RECTAL Constipation 11/14/18 18:45 12/14/18 18:44 Docusate Sodium (Colace) 100 mg Q12HR GT 11/14/18 21:00 12/14/18 20:59 11/15/18 09:06 Doxycycline Monohydrate (Vibramycin) 100 mg EVERY 12 HOURS GT 11/14/18 21:00 11/16/18 20:59 11/14/18 21:03 Escitalopram Oxalate (Lexapro) 10 mg DAILY GT 11/15/18 09:00 12/09/18 08:59 11/15/18 09:06 Ferrous Sulfate (Feosol) 300 mg DAILY GT 11/15/18 09:00 12/15/18 08:59 11/15/18 09:06 Heparin Sodium (Porcine) (Heparin 5000 units/ml) 5,000 units EVERY 12 HOURS SUBQ 11/09/18 09:00 12/09/18 08:59 11/15/18 09:15 Labetalol HCl (Normodyne) 100 mg EVERY 12 HOURS GT 11/14/18 21:00 12/09/18 08:59 11/15/18 09:06 Lansoprazole (Prevacid) 30 mg DAILY GT 11/15/18 09:00 12/15/18 08:59 11/15/18 09:06 Levofloxacin (Levaquin) 500 mg DAILY GT 11/15/18 09:00 11/17/18 08:59 11/15/18 09:06 Magnesium Hydroxide (Mom) 30 ml DAILY ORAL 11/09/18 09:00 12/09/18 08:59 11/15/18 09:05 Methylprednisolone Sodium Succinate (Solu-MEDROL) 40 mg BID IVP 11/12/18 18:00 12/09/18 20:59 11/15/18 09:05 Nitroglycerin (Nitro-Bid) 1 inch TID@0600,1200,1800 TOPIC 11/11/18 06:00 12/11/18 05:59 11/15/18 05:41 Sodium 1,000 ml @ 50 mls/hr Q20H IV 11/13/18 13:00 12/13/18 12:59 11/15/18 05:40 Sodium Phosphate (Fleet's Sodium Phosl Enema) 133 ml EVERY 72 HOURS RECTAL 11/09/18 09:00 12/09/18 08:59 Neal Alas MD Nov 15, 2018 10:03
[2018-11-15 10:26] LABS: ANION GAP 9 mmol/L (5-15); BLOOD UREA NITROGEN 28 mg/dL (7-18); CALCIUM 9.7 MG/DL (8.5-10.1); CARBON DIOXIDE 30 MMOL/L (21-32); CHLORIDE 100 MMOL/L (98-107); CREATININE 0.9 MG/DL (0.55-1.30); SODIUM 139 MMOL/L (136-145)
--- NOTE | 2018-11-15 11:04 | General Progress Note ---
Assessment/Plan Assessment/Plan Still severe COPD - on BIPAP s/p PEG Monitor. Continue Intensive Respiratory Therapy, IV Abx. Subjective Allergies: Coded Allergies: No Known Allergies (Unverified , 11/02/18) Subjective s/p PEG. Less SOB. On BIPAP!. Objective Last 24 Hour Vital Signs Date Time Temp Pulse Resp B/P (MAP) Pulse Ox O2 Delivery O2 Flow Rate FiO2 11/15/18 09:06 77 130/65 11/15/18 08:52 77 18 100 Facial 40 11/15/18 07:55 86 22 94 Nasal Cannula 3.0 32 11/15/18 07:54 86 22 Nasal Cannula 3.0 32 11/15/18 07:54 Nasal Cannula 3.0 32 11/15/18 07:54 94 Nasal Cannula 3.0 32 11/15/18 05:41 130/65 11/15/18 05:16 77 18 100 Facial 40 11/15/18 04:00 66 11/15/18 04:00 97.6 63 24 130/62 (84) 100 11/15/18 04:00 40 11/15/18 04:00 Nasal Cannula 3.0 11/15/18 02:38 81 18 99 Facial 40 11/15/18 02:32 80 20 99 Nasal Cannula 3.0 32 11/15/18 02:22 80 22 96 Nasal Cannula 3.0 32 11/15/18 00:00 Nasal Cannula 3.0 11/15/18 00:00 61 11/15/18 00:00 3.0 11/15/18 00:00 97.7 76 24 147/74 (98) 100 11/14/18 21:03 95 153/99 11/14/18 20:00 Nasal Cannula 3.0 11/14/18 20:00 105 11/14/18 20:00 97.6 95 24 153/79 (103) 100 11/14/18 20:00 40 11/14/18 19:21 93 29 98 Facial 40 11/14/18 19:20 98 Nasal Cannula 3.0 32 11/14/18 19:20 92 16 Nasal Cannula 3.0 32 11/14/18 19:20 Nasal Cannula 3.0 32 11/14/18 17:50 84 19 98 Nasal Cannula 3.0 32 11/14/18 17:40 81 22 98 Nasal Cannula 3.0 32 11/14/18 16:00 68 11/14/18 16:00 98.2 77 24 130/74 (92) 97 11/14/18 16:00 Nasal Cannula 3.0 11/14/18 16:00 3.0 11/14/18 15:05 123/68 11/14/18 14:35 3.0 11/14/18 14:35 Nasal Cannula 3.0 11/14/18 14:35 97.2 71 22 123/68 (86) 95 11/14/18 14:19 78 26 98 11/14/18 14:04 97.4 74 25 138/81 94 Nasal Cannula 3 11/14/18 13:55 73 25 132/73 96 Nasal Cannula 3 11/14/18 13:50 73 26 146/83 95 Nasal Cannula 3 11/14/18 13:48 97.8 76 24 148/74 96 Nasal Cannula 3 11/14/18 13:47 83 25 96 11/14/18 11:42 87 21 99 Facial 40 11/14/18 11:38 70 Intake and Output 11/14/18 11/15/18 19:00 07:00 Intake Total 940 ml 766 ml Output Total 500 ml 800 ml Balance 440 ml -34 ml Intake Oral 120 ml Free Water 60 ml IV Total 750 ml 566 ml Tube Feeding 10 ml 200 ml Output Urine Total 500 ml 800 ml Estimated Blood Loss 0 ml # Bowel Movements 2 Laboratory Tests 11/15/18 04:04: White Blood Count 9.7, Red Blood Count 4.66L, Hemoglobin 12.3L, Hematocrit 39.2L , Mean Corpuscular Volume 84, Mean Corpuscular Hemoglobin 26.5L, Mean Corpuscular Hemoglobin Concent 31.5L, Red Cell Distribution Width 14.8, Platelet Count 238, Mean Platelet Volume 6.1L, Neutrophils (%) (Auto) 80.4H, Lymphocytes (%) (Auto) 13.1L, Monocytes (%) (Auto) 6.2, Eosinophils (%) (Auto) 0.0, Basophils (%) (Auto) 0.2, Sodium Level 139, Potassium Level 5.0, Chloride Level 100, Carbon Dioxide Level 30, Anion Gap 9, Blood Urea Nitrogen 28H, Creatinine 0.9, Estimat Glomerular Filtration Rate > 60, Glucose Level 91, Calcium Level 9.7 Height (Feet): 6 Height (Inches): 0.00 Weight (Pounds): 158 Objective On BIPAP CV RR Lungs B Ronchi + wheezes Abd SNT BS +. New PEG. E No CCE Ernesto Reynoso MD Nov 15, 2018 11:03
[2018-11-15 12:00] VITALS: BP 122/70
--- NOTE | 2018-11-15 12:30 | NUR ---
NURSE NOTES: Per Dr Alas request, pt moved from bipap to venturi mask to help wean pt off bipap
--- NOTE | 2018-11-15 13:23 | NUR ---
RESPIRATORY NOTE: Patient of BIPAP, placed patient on 40% venturi mask. no signs of distress will continue to monitor.
[2018-11-15 16:00] VITALS: BP 128/74
--- NOTE | 2018-11-15 19:15 | NUR ---
NURSE NOTES: Received patient from DAVID Villanueva. Patient AO4 sleeping in bed with NAD. Venturi in place; 10L; 40%. IV intact and patent; fluids running as prescribed. GT intact and patent; feeding running as prescribed. Bed at lowest position; bed alarm on; side rails raised x3; call light within reach. Will follow plan of care.
[2018-11-15 20:00] VITALS: BP 145/81
--- NOTE | 2018-11-15 20:13 | Cardiology Report ---
APPROVED REPORT EKG Measurement Heart [id number] SC 144P80 [id number] Normal sinus rhythm Left ventricular hypertrophy with repolarization abnormality Prolonged QT Abnormal ECG
--- NOTE | 2018-11-15 20:14 | Cardiology Report ---
APPROVED REPORT EKG Measurement Heart [id number] SD 130P57 [id number] Sinus tachycardia with frequent premature ventricular complexes Left ventricular hypertrophy with repolarization abnormality Cannot rule out Septal infarct, age undetermined Abnormal ECG
[2018-11-16] VITALS: BP 132/77
[2018-11-16] MEDS: 1/2NS w/KCl 20mEq 1000ml 1,000 ML IV SCH (00:17)
[2018-11-16 04:00] VITALS: BP 146/74
--- NOTE | 2018-11-16 05:30 | Progress Note ---
DATE: 11/15/2018 CARDIOLOGY PROGRESS NOTE SUBJECTIVE: The patient is status post G-tube yesterday. He is on BiPAP with weaning efforts in place. He still congested. He has moderate secretions. He has episodes of bronchospasm. OBJECTIVE: VITAL SIGNS: Blood pressure 130/65, pulse 77, respiratory rate 18, afebrile. HEENT: Temporal wasting. LUNGS: Bilateral rhonchi. CARDIAC: Regular rhythm and rate. Normal S1, S2. ABDOMEN: Soft. G-tube intact. EXTREMITIES: No edema. LABORATORY DATA: White count 9.7 and hemoglobin 12.3. Potassium 5, BUN 28, and creatinine 0.9. IMPRESSION: 1. Dysphagia, status post G-tube. 2. COPD exacerbation. 3. Paroxysmal bronchospasm. 4. Chronic diastolic congestive heart failure. 5. Paroxysmal atrial ectopy. 6. Pleuritic chest pain. 7. Possible esophageal tumor. 8. Rising potassium levels. PLAN: 1. Discontinue IV fluids, which contains potassium. 2. Respiratory hygiene. 3. Bronchodilators. 4. Weaning off BiPAP, weaning, and steroids. 5. Discontinue topical nitrates. 6. No anti-platelet therapy due to bleeding risk. 7. Continue labetalol for blood pressure control. 8. Titrate as needed. Paulo Barnhart M.D. DR: BRIA JOB#: [id number] CC:
--- NOTE | 2018-11-16 07:25 | NUR ---
HAND-OFF: Report given to DAVID Duran. Patient in stable condition. Plan of care endorsed.
--- NOTE | 2018-11-16 07:26 | NUR ---
NURSE NOTES: Received patient from Nathalie Duran RN. Patient awake and on venturi mask. RT was called due to patient's request to be on bipap. front desk monitor in placed. Gtube is also in placed with Vital AF at 60 cc/hour. Urinal at bedside. Bed in lowest position locked with side rails up. Will continue to follow plan of care.
[2018-11-16 08:00] VITALS: BP 130/71
--- NOTE | 2018-11-16 09:01 | Pulmonology Progress Note ---
Assessment/Plan Assessment/Plan COPD Exacerbation HIV GERD Chronic respiratory failure PLAN care noted and reviewed respiratory care prn use BiPAP supplemental O2 Discussed with RN Subjective Interval Events: Saturating better on nasal O2 or face mask Constitutional: Reports: no symptoms HEENT: Repors: no symptoms Respiratory: Reports: shortness of breath Cardiovascular: Reports: no symptoms Gastrointestinal/Abdominal: Reports: no symptoms Genitourinary: Reports: no symptoms Allergies: Coded Allergies: No Known Allergies (Unverified , 11/02/18) Objective Last 24 Hour Vital Signs Date Time Temp Pulse Resp B/P (MAP) Pulse Ox O2 Delivery O2 Flow Rate FiO2 11/16/18 08:00 97.5 95 22 130/71 (90) 100 11/16/18 07:21 129 27 94 Facial 40 11/16/18 04:00 73 11/16/18 04:00 Nasal Cannula 4.0 11/16/18 04:00 10.0 45 11/16/18 04:00 98.0 95 24 146/74 (98) 94 11/16/18 00:00 98.1 69 24 132/77 (95) 95 11/16/18 00:00 Nasal Cannula 4.0 11/16/18 00:00 75 11/16/18 00:00 10.0 45 11/15/18 22:14 96 Venturi Mask 10.0 40 11/15/18 22:14 Venturi Mask 10.0 40 11/15/18 22:13 71 20 Venturi Mask 10.0 40 11/15/18 21:12 90 145/81 11/15/18 20:00 Nasal Cannula 4.0 11/15/18 20:00 98.4 90 24 145/81 (102) 97 11/15/18 20:00 73 11/15/18 20:00 10.0 45 11/15/18 17:55 128/74 11/15/18 16:00 10.0 11/15/18 16:00 98.2 88 19 128/74 (92) 97 11/15/18 16:00 Nasal Cannula 4.0 11/15/18 16:00 74 11/15/18 12:21 167/87 11/15/18 12:00 97.7 91 18 122/70 (87) 96 11/15/18 12:00 Nasal Cannula 4.0 11/15/18 12:00 85 11/15/18 12:00 3.0 11/15/18 09:06 77 130/65 Intake and Output 11/15/18 11/16/18 18:59 06:59 Intake Total 660 ml 1060 ml Output Total 800 ml Balance 660 ml 260 ml Free Water 100 ml 330 ml IV Total 50 ml 20 ml Tube Feeding 510 ml 710 ml Output Urine Total 800 ml General Appearance: no acute distress HEENT: normocephalic Respiratory/Chest: chest wall non-tender, lungs clear Cardiovascular: normal peripheral pulses, normal rate Abdomen: normal bowel sounds Current Medications Medications (Trade) Dose Ordered Sig/Luis Route PRN Reason Start Time Stop Time Status Last Admin Dose Admin Acetaminophen (Tylenol) 650 mg Q6H PRN ORAL Pain Scale (3-5) 11/14/18 19:00 12/08/18 18:59 11/16/18 07:02 Albuterol/ Ipratropium (Albuterol/ Ipratropium) 3 ml Q6H PRN HHN Shortness of Breath 11/14/18 16:00 11/19/18 15:59 11/15/18 07:56 Bisacodyl (Dulcolax) 10 mg DAILYPRN PRN RECTAL Constipation 11/14/18 18:45 12/14/18 18:44 Docusate Sodium (Colace) 100 mg Q12HR GT 11/14/18 21:00 12/14/18 20:59 11/15/18 21:12 Doxycycline Monohydrate (Vibramycin) 100 mg EVERY 12 HOURS GT 11/14/18 21:00 11/16/18 20:59 11/15/18 21:12 Escitalopram Oxalate (Lexapro) 10 mg DAILY GT 11/15/18 09:00 12/09/18 08:59 11/15/18 09:06 Ferrous Sulfate (Feosol) 300 mg DAILY GT 11/15/18 09:00 12/15/18 08:59 11/15/18 09:06 Heparin Sodium (Porcine) (Heparin 5000 units/ml) 5,000 units EVERY 12 HOURS SUBQ 11/09/18 09:00 12/09/18 08:59 11/15/18 21:14 Labetalol HCl (Normodyne) 100 mg EVERY 12 HOURS GT 11/14/18 21:00 12/09/18 08:59 11/15/18 21:12 Lansoprazole (Prevacid) 30 mg DAILY GT 11/15/18 09:00 12/15/18 08:59 11/15/18 09:06 Levofloxacin (Levaquin) 500 mg DAILY GT 11/15/18 09:00 11/17/18 08:59 11/15/18 09:06 Magnesium Hydroxide (Mom) 30 ml DAILY ORAL 11/09/18 09:00 12/09/18 08:59 11/15/18 09:05 Methylprednisolone Sodium Succinate (Solu-MEDROL) 40 mg BID IVP 11/12/18 18:00 12/09/18 20:59 11/15/18 17:55 Sodium Phosphate (Fleet's Sodium Phosl Enema) 133 ml EVERY 72 HOURS RECTAL 11/09/18 09:00 12/09/18 08:59 Neal Alas MD Nov 16, 2018 09:01
[2018-11-16] MEDS: Levofloxacin 500mg tab GT SCH (09:06)
[2018-11-16] MEDS: Solu-MEDROL 40mg Inj IVP SCH ×2 (09:06→17:23)
[2018-11-16] MEDS: Milk of Magnesia 30ml Ud ORAL SCH (09:06)
[2018-11-16] MEDS: Ferrous Sulfate 300 MG/5 ML UDC GT SCH (09:06)
[2018-11-16] MEDS: Docusate 100mg/10ml Liq GT SCH ×2 (09:06→20:26)
[2018-11-16] MEDS: Heparin 5000 units/ml inj SUBQ SCH ×2 (09:08→20:30)
--- NOTE | 2018-11-16 11:02 | General Progress Note ---
Assessment/Plan Problem List: (1) Mediastinal mass ICD Codes: J98.59 - Other diseases of mediastinum, not elsewhere classified SNOMED: 29846154 (2) Respiratory distress ICD Codes: R06.03 - Acute respiratory distress SNOMED: 941576217 (3) Anemia ICD Codes: D64.9 - Anemia, unspecified SNOMED: 564552349 (4) Iron deficiency ICD Codes: E61.1 - Iron deficiency SNOMED: 24945207 (5) COPD exacerbation ICD Codes: J44.1 - Chronic obstructive pulmonary disease with (acute) exacerbation SNOMED: 402383511 Assessment/Plan s/p PEG placement tolerating TF fu labs dc planning per primary team fu oncology Subjective ROS Limited/Unobtainable: No Allergies: Coded Allergies: No Known Allergies (Unverified , 11/02/18) Objective Last 24 Hour Vital Signs Date Time Temp Pulse Resp B/P (MAP) Pulse Ox O2 Delivery O2 Flow Rate FiO2 11/16/18 09:06 95 130/71 11/16/18 08:59 94 23 99 Facial 40 11/16/18 08:00 40 11/16/18 08:00 Bi-pap 11/16/18 08:00 97.5 95 22 130/71 (90) 100 11/16/18 07:55 112 11/16/18 07:23 Bi-pap 11/16/18 07:22 129 27 Bi-pap 40 11/16/18 07:22 94 Bi-pap 11/16/18 07:21 129 27 94 Facial 40 11/16/18 04:00 73 11/16/18 04:00 Nasal Cannula 4.0 11/16/18 04:00 10.0 45 11/16/18 04:00 98.0 95 24 146/74 (98) 94 11/16/18 00:00 98.1 69 24 132/77 (95) 95 11/16/18 00:00 Nasal Cannula 4.0 11/16/18 00:00 75 11/16/18 00:00 10.0 45 11/15/18 22:14 96 Venturi Mask 10.0 40 11/15/18 22:14 Venturi Mask 10.0 40 11/15/18 22:13 71 20 Venturi Mask 10.0 40 11/15/18 21:12 90 145/81 11/15/18 20:00 Nasal Cannula 4.0 11/15/18 20:00 98.4 90 24 145/81 (102) 97 11/15/18 20:00 73 11/15/18 20:00 10.0 45 11/15/18 17:55 128/74 11/15/18 16:00 10.0 11/15/18 16:00 98.2 88 19 128/74 (92) 97 11/15/18 16:00 Nasal Cannula 4.0 11/15/18 16:00 74 11/15/18 12:21 167/87 11/15/18 12:00 97.7 91 18 122/70 (87) 96 11/15/18 12:00 Nasal Cannula 4.0 11/15/18 12:00 85 11/15/18 12:00 3.0 Intake and Output 11/15/18 11/16/18 18:59 06:59 Intake Total 660 ml 1060 ml Output Total 800 ml Balance 660 ml 260 ml Free Water 100 ml 330 ml IV Total 50 ml 20 ml Tube Feeding 510 ml 710 ml Output Urine Total 800 ml Height (Feet): 6 Height (Inches): 0.00 Weight (Pounds): 158 General Appearance: alert EENT: normal ENT inspection Neck: supple Cardiovascular: normal rate Respiratory/Chest: decreased breath sounds Abdomen: normal bowel sounds, non tender, soft Extremities: non-tender Jerry Arias MD Nov 16, 2018 11:02
[2018-11-16 12:00] VITALS: BP 141/73
--- NOTE | 2018-11-16 12:23 | General Progress Note ---
Assessment/Plan Assessment/Plan Still severe COPD - on BIPAP s/p PEG Monitor. Continue Intensive Respiratory Therapy, IV Abx. Subjective Allergies: Coded Allergies: No Known Allergies (Unverified , 11/02/18) Subjective s/p PEG. Less SOB. On BIPAP!. Objective Last 24 Hour Vital Signs Date Time Temp Pulse Resp B/P (MAP) Pulse Ox O2 Delivery O2 Flow Rate FiO2 11/16/18 10:46 84 24 97 Facial 40 11/16/18 09:06 95 130/71 11/16/18 08:59 94 23 99 Facial 40 11/16/18 08:00 40 11/16/18 08:00 Bi-pap 11/16/18 08:00 97.5 95 22 130/71 (90) 100 11/16/18 07:55 112 11/16/18 07:23 Bi-pap 11/16/18 07:22 129 27 Bi-pap 40 11/16/18 07:22 94 Bi-pap 11/16/18 07:21 129 27 94 Facial 40 11/16/18 04:00 73 11/16/18 04:00 Nasal Cannula 4.0 11/16/18 04:00 10.0 45 11/16/18 04:00 98.0 95 24 146/74 (98) 94 11/16/18 00:00 98.1 69 24 132/77 (95) 95 11/16/18 00:00 Nasal Cannula 4.0 11/16/18 00:00 75 11/16/18 00:00 10.0 45 11/15/18 22:14 96 Venturi Mask 10.0 40 11/15/18 22:14 Venturi Mask 10.0 40 11/15/18 22:13 71 20 Venturi Mask 10.0 40 11/15/18 21:12 90 145/81 11/15/18 20:00 Nasal Cannula 4.0 11/15/18 20:00 98.4 90 24 145/81 (102) 97 11/15/18 20:00 73 11/15/18 20:00 10.0 45 11/15/18 17:55 128/74 11/15/18 16:00 10.0 11/15/18 16:00 98.2 88 19 128/74 (92) 97 11/15/18 16:00 Nasal Cannula 4.0 11/15/18 16:00 74 Intake and Output 11/15/18 11/16/18 19:00 07:00 Intake Total 630 ml 1040 ml Output Total 800 ml Balance 630 ml 240 ml Free Water 130 ml 300 ml IV Total 20 ml Tube Feeding 500 ml 720 ml Output Urine Total 800 ml Height (Feet): 6 Height (Inches): 0.00 Weight (Pounds): 158 Objective On BIPAP CV RR Lungs B Ronchi + wheezes Abd SNT BS +. New PEG. E No CCE Ernesto Reynoso MD Nov 16, 2018 12:23
[2018-11-16] MEDS ORDERED: HYDROcodone/Acetamin 10/325 tab ORAL PRN (12:30)
--- NOTE | 2018-11-16 12:32 | NUR ---
CASE MANAGEMENT: REVIEW 11/16/2018 SI: RESP DISTRESS T 97.5 HR 95 RR 22 B/P 130/71 SATS 100% ON BIPAP FiO2 40 BUN 28 IS: SOLU MEDROL IV Q12HR HEPARIN SQ Q12HR NITRO TOPICAL TID LEVAQUIN PO QD DOXYCYCLINE PO Q12HR STEP DOWN STATUS DCP: PATIENT IS FROM [facility]
[2018-11-16 16:00] VITALS: BP 137/69
--- NOTE | 2018-11-16 19:03 | NUR ---
HAND-OFF: Report given to DAVID Corey. Patient stable.
--- NOTE | 2018-11-16 19:10 | NUR ---
RESPIRATORY NOTE: pt request to be placed on bipap on settings on IPAP 12 EPAP 5, FiO2 40% back up rate of 16. O2 saturation on 93% and HR 78. no s/s of respiratory distress noted. pt on facial mask with tape to prevent from skin break down. will continue to monitor pt. bipap is plugged into red outlet, alarms are on and audible.
[2018-11-16 20:00] VITALS: BP 144/70
--- NOTE | 2018-11-16 20:17 | NUR ---
RESPIRATORY NOTE: pt wants to be off bipap. no s/s of respiratory distress noted. pt on VM 45% FiO2. O2 saturation 96%. RN notified.
[2018-11-16] MEDS: HYDROcodone/Acetamin 10/325 tab GT PRN (22:05)
[2018-11-17] VITALS: BP 120/82
--- NOTE | 2018-11-17 02:45 | Progress Note ---
DATE: 11/16/2018 CARDIOLOGY PROGRESS NOTE SUBJECTIVE: The patient is somewhat less short of breath, but still requiring BiPAP support. OBJECTIVE: VITAL SIGNS: Blood pressure 130/71, pulse 95, respiratory rate 23, afebrile. LUNGS: Coarse rhonchi. Few wheezes. HEART: Regular rhythm and rate. Normal S1, S2. ABDOMEN: Soft. EXTREMITIES: No edema. IMPRESSION: 1. Dysphagia, status post G-tube. 2. Chronic diastolic congestive heart failure. 3. Paroxysmal atrial ectopy. 4. Pleuritic chest pain. 5. Paroxysmal bronchospasm. 6. Acute respiratory insufficiency. 7. COPD exacerbation. 8. High risk. PLAN: 1. Monitor volume status and cardiorenal parameters. 2. Nutritional support by feeding tube, off IV fluids. 3. Reassess for diuresis. 4. Recheck laboratory studies and natriuretic peptide assay. 5. No anti-platelet therapy due to bleeding risk. Paulo Barnhart M.D. DR: Chelly JOB#: [id number] CC:
[2018-11-17] MEDS: HYDROcodone/Acetamin 10/325 tab GT PRN ×4 (03:12→21:29)
[2018-11-17 04:00] VITALS: BP 145/75
--- NOTE | 2018-11-17 06:17 | NUR ---
RESPIRATORY NOTE: pt placed back on bipap on current settings per pt request due to SOB. RN aware. no s/s of respiratory distress noted.
[2018-11-17 06:24] LABS: BASOPHILS % (AUTO) 0.2 % (0.0-2.0); HEMATOCRIT 40.4 % (42.0-52.0); HEMOGLOBIN 12.8 G/DL (14.2-18.0); LYMPHOCYTES % (AUTO) 8.7 % (20.0-45.0); MEAN CORPUSCULAR VOLUME 83 FL (80-99); MONOCYTES % (AUTO) 6.6 % (1.0-10.0); NEUTROPHILS % (AUTO) 84.4 % (45.0-75.0); PLATELET COUNT 245 K/UL (150-450); RED BLOOD COUNT 4.86 M/UL (4.70-6.10); RED CELL DISTRIBUTION WIDTH 14.8 % (11.6-14.8); WHITE BLOOD COUNT 12.2 K/UL (4.8-10.8)
[2018-11-17 06:37] LABS: ANION GAP 8 mmol/L (5-15); BLOOD UREA NITROGEN 37 mg/dL (7-18); CALCIUM 9.5 MG/DL (8.5-10.1); CARBON DIOXIDE 30 MMOL/L (21-32); CHLORIDE 106 MMOL/L (98-107); CREATININE 0.8 MG/DL (0.55-1.30); POTASSIUM 4.1 MMOL/L (3.5-5.1); SODIUM 144 MMOL/L (136-145)
--- NOTE | 2018-11-17 07:31 | NUR ---
HAND-OFF: Report given to DAVID Morris.
--- NOTE | 2018-11-17 07:32 | NUR ---
NURSE NOTES: Received patient on bipap. On continuous GTF as tolerated. Call light within reach. Will continue plan of care.
[2018-11-17] MEDS: Albuterol/Ipratropium 3ml neb HHN PRN (07:57)
[2018-11-17 08:00] VITALS: BP 143/77
[2018-11-17] MEDS: Solu-MEDROL 40mg Inj IVP SCH ×2 (08:02→18:17)
[2018-11-17] MEDS: Ferrous Sulfate 300 MG/5 ML UDC GT SCH (08:02)
[2018-11-17] MEDS: Docusate 100mg/10ml Liq GT SCH ×2 (08:03→21:00)
[2018-11-17] MEDS: Milk of Magnesia 30ml Ud ORAL SCH (08:04)
[2018-11-17] MEDS: Heparin 5000 units/ml inj SUBQ SCH ×2 (08:04→21:00)
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
--- NOTE | 2018-11-17 10:26 | Cardiology Report ---
APPROVED REPORT EXAM: Two-dimensional and M-mode echocardiogram with Doppler and color Doppler. INDICATION Coronary artery disease M-Mode DIMENSIONS IVSd1.7 (0.7-1.1cm)Left Atrium (MM)2.9 (1.6-4.0cm) LVDd4.2 (3.5-5.6cm)Aortic Root3.1 (2.0-3.7cm) PWd1.4 (0.7-1.1cm)Aortic Cusp Exc.1.8 (1.5-2.0cm) LVDs3.0 (2.5-4.0cm) PWs1.7 cm Technically difficult and limited study due to poor acoustic windows. All images taken from subcostal view. Study quality precludes accurate assessment of regional wall motion. Normal left ventricular chamber size, systolic function and wall motion. Left ventricular ejection fraction estimated to be 55 %. Mild left ventricular hypertrophy. No evidence of pericardial effusion. All other cardiac chamber sizes appear to be within normal limits. Focal aortic valve sclerosis with adequate cusp excursion. Thickened mitral valve leaflets with normal excursion. Mild mitral annulus and aortic root calcification. Normal pulmonic valve structure. Normal tricuspid valve structure. IVC not obtainable due to G-tube. A color flow and spectral Doppler study was performed and revealed: No aortic insufficiency. No mitral regurgitation. Mitral diastolic velocities suggest mild left ventricular diastolic dysfunction (Grade I). Mild tricuspid regurgitation. Tricuspid systolic velocities suggests peak right ventricular systolic pressure of 35 mmHg, consistent with mild pulmonary hypertension. No pulmonic regurgitation present.
--- NOTE | 2018-11-17 10:28 | NUR ---
RD ASSESSMENT & RECOMMENDATIONS SEE CARE ACTIVITY FOR COMPLETE ASSESSMENT DAILY ESTIMATED NEEDS: Needs based on Underweight, pulmonary, CA, 67 30-35 kcals/kg 4694-3025 total kcals 1-1.5 g protein/kg 67-100 g total protein 25-30 mL/kg 0879-0994 total fluid mLs NUTRITION DIAGNOSIS: * Increased kcal and protein needs R/T underweight status, recent significant wt loss, respiratory status, catabolic dx as evidenced by pt is 71% IBW, w/ possible 8.3lbs/5.3% wt loss in 10 days, significant, w/ generalized moderate-severe wasting, +SOB requiring prn BIPAP, dx of HIV + and metastatic esophageal submucosal lesion. * Swallowing difficulty R/T dysphagia as evidenced by pt aspirating, now s/p PEG placement. (UPDATED) ENTERAL NUTRITION RECOMMENDATIONS: Osmolite 1.5 @ 60ml/hr x 24 hrs to provide 1440ml, 2160kcal, 90g prot, 1097ml free water * S/p PEG placement, initiate Osmolite 1.5 @ 20ml/hr x 6 hrs * Advance 10ml q 4-6 hrs as tolerated to goal rate. * HOB over 30 degrees/ water flush per MD ADDITIONAL RECOMMENDATIONS: 1) Obtain a standing weight as able for accurate CBW 2) Weekly wts given recent wt loss and underweight status 3) Monitor lytes and BGs daily w/ TF, replete lytes as needed -> need for TF change .
--- NOTE | 2018-11-17 11:00 | GI Progress Note ---
Assessment/Plan Problems: (1) Submucosal lesion of esophagus ICD Codes: K22.8 - Other specified diseases of esophagus SNOMED: 905525556 (2) Anemia ICD Codes: D64.9 - Anemia, unspecified SNOMED: 088704822 (3) Iron deficiency ICD Codes: E61.1 - Iron deficiency SNOMED: 43480158 (4) Respiratory distress ICD Codes: R06.03 - Acute respiratory distress SNOMED: 335123179 (5) Mediastinal mass ICD Codes: J98.59 - Other diseases of mediastinum, not elsewhere classified SNOMED: 51017042 Status: stable, unchanged Status Narrative Discussed with Dr. Arias Assessment/Plan Recent EGD/EUS performed at [facility] approximately 2 weeks ago, noted with metastatic esophageal submucosal lesion. s/p PEG placement tolerating TF fu labs dc planning per primary team The patient was seen and examined at bedside and all new and available data was reviewed in the patients chart. I agree with the above findings, impression and plan. (Patient seen earlier today. Signature stamp does not reflect patient encounter time.). - Jerry Arias MD Subjective Subjective Esophageal tenderness, SOB and coughing Objective Last 24 Hour Vital Signs Date Time Temp Pulse Resp B/P (MAP) Pulse Ox O2 Delivery O2 Flow Rate FiO2 11/17/18 08:54 91 22 94 Facial 40 11/17/18 08:03 112 145/75 11/17/18 08:00 Bi-pap 10.0 11/17/18 08:00 97.7 112 20 143/77 (99) 93 11/17/18 07:57 82 21 95 Bi-pap 15.0 40 11/17/18 07:30 40 11/17/18 07:23 102 11/17/18 07:08 95 Bi-pap 40 11/17/18 07:08 83 21 95 Facial 40 11/17/18 07:08 Bi-pap 11/17/18 07:08 83 21 Bi-pap 40 11/17/18 06:18 89 24 90 Facial 40 11/17/18 04:00 82 11/17/18 04:00 97.7 83 22 145/75 (98) 95 11/17/18 04:00 Venturi Mask 10.0 11/17/18 04:00 10.0 45 11/17/18 00:00 10.0 45 11/17/18 00:00 Venturi Mask 10.0 11/17/18 00:00 98.2 79 22 120/82 (95) 96 11/17/18 00:00 71 11/16/18 22:35 98.6 11/16/18 20:26 79 144/70 11/16/18 20:00 87 11/16/18 20:00 98.6 79 26 144/70 (94) 97 11/16/18 20:00 Venturi Mask 10.0 11/16/18 20:00 10.0 45 11/16/18 19:10 Bi-pap 11/16/18 19:10 93 Bi-pap 40 11/16/18 19:10 78 21 93 Facial 40 11/16/18 19:10 78 21 Bi-pap 40 11/16/18 18:00 Venturi Mask 10.0 11/16/18 16:00 Venturi Mask 10.0 11/16/18 16:00 10.0 45 11/16/18 16:00 97.5 76 25 137/69 (91) 99 11/16/18 15:32 70 11/16/18 12:00 40 11/16/18 12:00 97.5 84 24 141/73 (95) 97 11/16/18 12:00 Venturi Mask 10.0 11/16/18 11:54 85 Intake and Output 11/16/18 11/17/18 18:59 06:59 Intake Total 1020 ml 870 ml Output Total 200 ml 600 ml Balance 820 ml 270 ml Free Water 300 ml 90 ml Tube Feeding 720 ml 780 ml Output Urine Total 200 ml 600 ml # Bowel Movements 4 Laboratory Tests Test 11/17/18 04:05 White Blood Count 12.2 K/UL (4.8-10.8) H Red Blood Count 4.86 M/UL (4.70-6.10) Hemoglobin 12.8 G/DL (14.2-18.0) L Hematocrit 40.4 % (42.0-52.0) L Mean Corpuscular Volume 83 FL (80-99) Mean Corpuscular Hemoglobin 26.4 PG (27.0-31.0) L Mean Corpuscular Hemoglobin Concent 31.8 G/DL (32.0-36.0) L Red Cell Distribution Width 14.8 % (11.6-14.8) Platelet Count 245 K/UL (150-450) Mean Platelet Volume 6.1 FL (6.5-10.1) L Neutrophils (%) (Auto) 84.4 % (45.0-75.0) H Lymphocytes (%) (Auto) 8.7 % (20.0-45.0) L Monocytes (%) (Auto) 6.6 % (1.0-10.0) Eosinophils (%) (Auto) 0.0 % (0.0-3.0) Basophils (%) (Auto) 0.2 % (0.0-2.0) Sodium Level 144 MMOL/L (136-145) Potassium Level 4.1 MMOL/L (3.5-5.1) Chloride Level 106 MMOL/L (98-107) Carbon Dioxide Level 30 MMOL/L (21-32) Anion Gap 8 mmol/L (5-15) Blood Urea Nitrogen 37 mg/dL (7-18) H Creatinine 0.8 MG/DL (0.55-1.30) Estimat Glomerular Filtration Rate > 60 mL/min (>60) Glucose Level 118 MG/DL (74-106) H Calcium Level 9.5 MG/DL (8.5-10.1) Magnesium Level 2.2 MG/DL (1.8-2.4) Pro-B-Type Natriuretic Peptide 3580 pg/mL (0-125) H Height (Feet): 6 Height (Inches): 0.00 Weight (Pounds): 158 General Appearance: WD/WN, no apparent distress, alert Cardiovascular: normal rate Respiratory/Chest: normal breath sounds, no respiratory distress Abdominal Exam: normal bowel sounds, non tender, soft Extremities: normal range of motion, non-tender Reva Wilson NP Nov 17, 2018 11:00
[2018-11-17 12:00] VITALS: BP 134/71
--- NOTE | 2018-11-17 13:29 | General Progress Note ---
Assessment/Plan Assessment/Plan Still severe COPD - on Nocturnal BIPAP s/p PEG Monitor. Continue Intensive Respiratory Therapy, IV Abx. Hope to DC to SNF tomorrow. Subjective Allergies: Coded Allergies: No Known Allergies (Unverified , 11/02/18) Subjective s/p PEG. Less SOB. On Nocturnal BIPAP!. Objective Last 24 Hour Vital Signs Date Time Temp Pulse Resp B/P (MAP) Pulse Ox O2 Delivery O2 Flow Rate FiO2 11/17/18 12:55 83 18 94 11/17/18 08:54 91 22 94 Facial 40 11/17/18 08:03 112 145/75 11/17/18 08:00 Bi-pap 10.0 11/17/18 08:00 97.7 112 20 143/77 (99) 93 11/17/18 07:57 82 21 95 Bi-pap 15.0 40 11/17/18 07:30 40 11/17/18 07:23 102 11/17/18 07:08 95 Bi-pap 40 11/17/18 07:08 83 21 95 Facial 40 11/17/18 07:08 Bi-pap 11/17/18 07:08 83 21 Bi-pap 40 11/17/18 06:18 89 24 90 Facial 40 11/17/18 04:00 82 11/17/18 04:00 97.7 83 22 145/75 (98) 95 11/17/18 04:00 Venturi Mask 10.0 11/17/18 04:00 10.0 45 11/17/18 00:00 10.0 45 11/17/18 00:00 Venturi Mask 10.0 11/17/18 00:00 98.2 79 22 120/82 (95) 96 11/17/18 00:00 71 11/16/18 22:35 98.6 11/16/18 20:26 79 144/70 11/16/18 20:00 87 11/16/18 20:00 98.6 79 26 144/70 (94) 97 11/16/18 20:00 Venturi Mask 10.0 11/16/18 20:00 10.0 45 11/16/18 19:10 Bi-pap 11/16/18 19:10 93 Bi-pap 40 11/16/18 19:10 78 21 93 Facial 40 11/16/18 19:10 78 21 Bi-pap 40 11/16/18 18:00 Venturi Mask 10.0 11/16/18 16:00 Venturi Mask 10.0 11/16/18 16:00 10.0 45 11/16/18 16:00 97.5 76 25 137/69 (91) 99 11/16/18 15:32 70 Intake and Output 11/16/18 11/17/18 18:59 06:59 Intake Total 1020 ml 870 ml Output Total 200 ml 600 ml Balance 820 ml 270 ml Free Water 300 ml 90 ml Tube Feeding 720 ml 780 ml Output Urine Total 200 ml 600 ml # Bowel Movements 4 Laboratory Tests 11/17/18 04:05: White Blood Count 12.2H, Red Blood Count 4.86, Hemoglobin 12.8L, Hematocrit 40.4L, Mean Corpuscular Volume 83, Mean Corpuscular Hemoglobin 26.4L, Mean Corpuscular Hemoglobin Concent 31.8L, Red Cell Distribution Width 14.8, Platelet Count 245, Mean Platelet Volume 6.1L, Neutrophils (%) (Auto) 84.4H, Lymphocytes (%) (Auto) 8.7L, Monocytes (%) (Auto) 6.6, Eosinophils (%) (Auto) 0.0, Basophils (%) (Auto) 0.2, Sodium Level 144, Potassium Level 4.1, Chloride Level 106, Carbon Dioxide Level 30, Anion Gap 8, Blood Urea Nitrogen 37H, Creatinine 0.8, Estimat Glomerular Filtration Rate > 60, Glucose Level 118H, Calcium Level 9.5, Magnesium Level 2.2, Pro-B-Type Natriuretic Peptide 3580H Height (Feet): 6 Height (Inches): 0.00 Weight (Pounds): 158 Objective On BIPAP CV RR Lungs B Ronchi + wheezes Abd SNT BS +. New PEG. E No CCE Ernesto Reynoso MD Nov 17, 2018 13:29
[2018-11-17] MEDS ORDERED: guaiFENesin 100mg/5ml Liq ud GT PRN (13:45)
[2018-11-17] MEDS: Metoclopramide 10mg/10ml Liq GT SCH ×2 (14:55→21:28)
[2018-11-17 16:00] VITALS: BP 124/72
--- NOTE | 2018-11-17 19:30 | NUR ---
HAND-OFF: Report given to DAVID Fernandez.
--- NOTE | 2018-11-17 19:40 | NUR ---
NURSE NOTES: PATIENT ALERT, ORIENTED X4, RESPIRATION REGULAR, LABORED ON O2 10LPM VIA VENTURI MASK, O2 SATURATION 94% NOTED, NO SOUGH OR WHEEZING NOTED AT THIS TIME, ABDOMEN SOFT, G TUBE INTACT AND PATENT, NO RESIDUE NOTED, ONGOING OSMOLITE 1.5 AT 45ML/HR, KEPT HOB OVER 30 DEGREE, PERIPHERAL LINE TO LEFT FORE ARM 22G, INTACT AND PATENT, CALL LIGHT, URINAL AND BEDSIDE COMMODE WITHIN REACH, MADE LOWER BED POSITION, WILL CONTINUE TO MONITOR.
[2018-11-17 20:00] VITALS: BP 132/65
--- NOTE | 2018-11-17 21:09 | NUR ---
NURSE NOTES: GIVEN NORCO 10MG VIA G TUBE FOR ABDOMINAL PAIN OF 6/10, WILL CONTINUE TO MONITOR.
--- NOTE | 2018-11-17 23:35 | NUR ---
NURSE NOTES: PATIENT ASLEEP STATUS, NO PAIN OR DISTRESS NOTED AT THIS TIME.
[2018-11-18] VITALS: BP 128/61
[2018-11-18] MEDS: HYDROcodone/Acetamin 10/325 tab GT PRN ×5 (01:20→19:55)
--- NOTE | 2018-11-18 01:20 | NUR ---
NURSE NOTES: GIVEN NORCO 10MG VIA G TUBE FOR ABDOMINAL PAIN OF 6/10, WILL CONTINUE TO MONITOR.
--- NOTE | 2018-11-18 02:30 | NUR ---
NURSE NOTES: SEEN THE PATIENT BY DR. SADLER, MADE NEW ORDER STATUS, KAREN SAHU.
[2018-11-18 04:00] VITALS: BP 141/76
[2018-11-18 04:37] LABS: BASOPHILS % (AUTO) 0.5 % (0.0-2.0); HEMATOCRIT 41.6 % (42.0-52.0); HEMOGLOBIN 13.2 G/DL (14.2-18.0); LYMPHOCYTES % (AUTO) 7.7 % (20.0-45.0); MEAN CORPUSCULAR VOLUME 84 FL (80-99); MONOCYTES % (AUTO) 7.2 % (1.0-10.0); NEUTROPHILS % (AUTO) 84.7 % (45.0-75.0); PLATELET COUNT 256 K/UL (150-450); RED BLOOD COUNT 4.93 M/UL (4.70-6.10); RED CELL DISTRIBUTION WIDTH 15.4 % (11.6-14.8); WHITE BLOOD COUNT 8.7 K/UL (4.8-10.8)
--- NOTE | 2018-11-18 04:45 | Progress Note ---
DATE: 11/17/2018 CARDIOLOGY PROGRESS NOTE SUBJECTIVE: The patient began tolerating G-tube feedings. He continues to have congestion. He is on IV steroids. He continues to have wheezing episodes. He remains on oxygen and BiPAP support. OBJECTIVE: VITAL SIGNS: Blood pressure 145/75, heart rate 82 to 112, respiratory rate 21, no fevers. Monitored rhythm, sinus. Sinus tachycardia, atrial ectopy. LUNGS: Coarse breath sounds. Scattered rhonchi. Respiratory wheezing. CARDIAC: Regular rhythm and rate. Normal S1, S2. Fourth heart sound. ABDOMEN: Soft. EXTREMITIES: No edema. LABORATORY AND DIAGNOSTIC DATA: White count 12 and hemoglobin 12.8. Pro-natriuretic peptide 3580. Echocardiogram yesterday revealed normal ejection fraction with mild pulmonary hypertension. IMPRESSION: 1. COPD exacerbation. 2. Paroxysmal bronchospasm. 3. Aspiration pneumonia. 4. Acute on chronic diastolic congestive heart failure. 5. Mild pulmonary hypertension. PLAN: 1. Diuresis. 2. Respiratory hygiene. 3. Bronchodilators. 4. Intravenous steroid. 5. DVT prophylaxis. 6. Nutrition by feeding tube. 7. Trend natriuretic peptide assay. Nitin Smith JOB#: [id number] CC:
[2018-11-18 05:00] LABS: ANION GAP 7 mmol/L (5-15); BLOOD UREA NITROGEN 42 mg/dL (7-18); CALCIUM 10.2 MG/DL (8.5-10.1); CARBON DIOXIDE 32 MMOL/L (21-32); CHLORIDE 107 MMOL/L (98-107); POTASSIUM 3.9 MMOL/L (3.5-5.1); SODIUM 146 MMOL/L (136-145)
[2018-11-18] MEDS: Metoclopramide 10mg/10ml Liq GT SCH ×3 (05:30→22:05)
--- NOTE | 2018-11-18 05:30 | NUR ---
NURSE NOTES: PATIENT REFUSED MORNING CARE AND WANTED PAIN MEDICATION THAT GIVEN NORCO 10MG VIA G TUBE FOR ABDOMINAL PAIN OF 6/10, WILL CONTINUE TO MONITOR.
--- NOTE | 2018-11-18 06:25 | NUR ---
NURSE NOTES: NO ACUTE DISTRESS NOTED AT THIS SHIFT.
--- NOTE | 2018-11-18 07:12 | NUR ---
HAND-OFF: Report given to DAVID KOTHARI.
--- NOTE | 2018-11-18 07:51 | NUR ---
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
[2018-11-18 08:00] VITALS: BP 155/81
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
[2018-11-18] MEDS: Fleet's Enema 133ml RECTAL SCH (09:00)
--- NOTE | 2018-11-18 09:10 | NUR ---
RADIOLOGY DEPT CHEST X-RAY DONE.-P.DYE
[2018-11-18] MEDS: Heparin 5000 units/ml inj SUBQ SCH ×2 (09:59→20:44)
[2018-11-18] MEDS: Ferrous Sulfate 300 MG/5 ML UDC GT SCH (10:00)
[2018-11-18] MEDS: Solu-MEDROL 40mg Inj IVP SCH ×2 (10:00→17:47)
[2018-11-18] MEDS: Milk of Magnesia 30ml Ud ORAL SCH (10:00)
[2018-11-18] MEDS: Docusate 100mg/10ml Liq GT SCH ×2 (10:00→20:41)
--- NOTE | 2018-11-18 10:36 | Diagnostic Imaging Report ---
Indication: Shortness of breath Technique: One view of the chest Comparison: 11/08/2018 Findings: Again demonstrated is a calcific granuloma at the right lung base. The lungs are hyperinflated. Heart size is normal. The aorta is elongated and tortuous. No infiltrates, effusions, congestion. No significant change Impression: Evidence of COPD Evidence of old granulomatous disease No acute process
--- NOTE | 2018-11-18 11:28 | GI Progress Note ---
Assessment/Plan Problems: (1) Submucosal lesion of esophagus ICD Codes: K22.8 - Other specified diseases of esophagus SNOMED: 213822624 (2) Anemia ICD Codes: D64.9 - Anemia, unspecified SNOMED: 074816706 (3) Iron deficiency ICD Codes: E61.1 - Iron deficiency SNOMED: 57110939 (4) Respiratory distress ICD Codes: R06.03 - Acute respiratory distress SNOMED: 976683946 (5) Mediastinal mass ICD Codes: J98.59 - Other diseases of mediastinum, not elsewhere classified SNOMED: 22744122 Status: unchanged Status Narrative Discussed with Dr. Arias Assessment/Plan Recent EGD/EUS performed at [facility] approximately 2 weeks ago, noted with metastatic esophageal submucosal lesion. s/p PEG placement tolerating TF fu labs3 Pulmonary recs dc planning per primary team The patient was seen and examined at bedside and all new and available data was reviewed in the patients chart. I agree with the above findings, impression and plan. (Patient seen earlier today. Signature stamp does not reflect patient encounter time.). - Jerry Arias MD Subjective Subjective SOB and coughing Objective Last 24 Hour Vital Signs Date Time Temp Pulse Resp B/P (MAP) Pulse Ox O2 Delivery O2 Flow Rate FiO2 11/18/18 10:28 98.2 11/18/18 09:57 84 155/81 11/18/18 08:05 10.0 11/18/18 08:04 Venturi Mask 10.0 11/18/18 08:00 78 11/18/18 08:00 98.2 84 22 155/81 (105) 94 11/18/18 07:46 73 20 Venturi Mask 55 11/18/18 07:46 Venturi Mask 14.0 55 11/18/18 07:46 95 Venturi Mask 15.0 55 11/18/18 04:00 98.1 71 24 141/76 (97) 100 11/18/18 04:00 10.0 11/18/18 04:00 Venturi Mask 10.0 11/18/18 04:00 82 11/18/18 00:30 69 11/18/18 00:00 Venturi Mask 10.0 11/18/18 00:00 98.4 61 24 128/61 (83) 94 11/18/18 00:00 10.0 11/17/18 21:28 90 154/84 11/17/18 20:00 78 11/17/18 20:00 Venturi Mask 10.0 11/17/18 20:00 98.6 80 24 132/65 (87) 94 11/17/18 20:00 10.0 11/17/18 19:40 78 21 Venturi Mask 40 11/17/18 19:40 95 Venturi Mask 40 11/17/18 19:40 Venturi Mask 10.0 40 11/17/18 16:00 10.0 11/17/18 16:00 71 11/17/18 16:00 Venturi Mask 10.0 11/17/18 16:00 97.2 71 22 124/72 (89) 94 11/17/18 13:00 Venturi Mask 10.0 11/17/18 12:55 83 18 94 11/17/18 12:00 Bi-pap 11/17/18 12:00 40 11/17/18 12:00 97.9 86 18 134/71 (92) 95 11/17/18 11:52 88 Intake and Output 11/17/18 11/18/18 18:59 06:59 Intake Total 45 ml 740 ml Output Total 1040 ml Balance 45 ml -300 ml Tube Feeding 45 ml 540 ml Other 200 ml Output Urine Total 1040 ml # Voids 1 # Bowel Movements 2 Laboratory Tests Test 11/18/18 03:40 11/18/18 08:58 White Blood Count 8.7 K/UL (4.8-10.8) Red Blood Count 4.93 M/UL (4.70-6.10) Hemoglobin 13.2 G/DL (14.2-18.0) L Hematocrit 41.6 % (42.0-52.0) L Mean Corpuscular Volume 84 FL (80-99) Mean Corpuscular Hemoglobin 26.7 PG (27.0-31.0) L Mean Corpuscular Hemoglobin Concent 31.6 G/DL (32.0-36.0) L Red Cell Distribution Width 15.4 % (11.6-14.8) H Platelet Count 256 K/UL (150-450) Mean Platelet Volume 6.3 FL (6.5-10.1) L Neutrophils (%) (Auto) 84.7 % (45.0-75.0) H Lymphocytes (%) (Auto) 7.7 % (20.0-45.0) L Monocytes (%) (Auto) 7.2 % (1.0-10.0) Eosinophils (%) (Auto) 0.0 % (0.0-3.0) Basophils (%) (Auto) 0.5 % (0.0-2.0) Sodium Level 146 MMOL/L (136-145) H Potassium Level 3.9 MMOL/L (3.5-5.1) Chloride Level 107 MMOL/L (98-107) Carbon Dioxide Level 32 MMOL/L (21-32) Anion Gap 7 mmol/L (5-15) Blood Urea Nitrogen 42 mg/dL (7-18) H Creatinine 1.0 MG/DL (0.55-1.30) Estimat Glomerular Filtration Rate > 60 mL/min (>60) Glucose Level 192 MG/DL (74-106) H Calcium Level 10.2 MG/DL (8.5-10.1) H Arterial Blood pH 7.452 (7.350-7.450) Arterial Blood Partial Pressure CO2 52.7 mmHg (35.0-45.0) H Arterial Blood Partial Pressure O2 53.8 mmHg (75.0-100.0) L Arterial Blood HCO3 36.0 mmol/L (22.0-26.0) H Arterial Blood Oxygen Saturation 87.6 % (95-100) *L Arterial Blood Base Excess 10.2 (-2-2) *H Kieran Test Positive Height (Feet): 6 Height (Inches): 0.00 Weight (Pounds): 158 General Appearance: WD/WN, no apparent distress, alert Cardiovascular: normal rate Respiratory/Chest: normal breath sounds, no respiratory distress, other - Venturi mask Abdominal Exam: normal bowel sounds, non tender, soft Extremities: normal range of motion, non-tender Reva Wilson NP Nov 18, 2018 11:28
[2018-11-18 12:00] VITALS: BP 132/66
--- NOTE | 2018-11-18 12:54 | NUR ---
NURSE NOTES: Md Reynoso wanted me to let the correctional case records supervisor know that the pt will be receiving Bi-Pap at [facility] with the same settings at Hospital. Called Sybil Leal and let her know of the doctors orders, she said, "Its done and to proceed with discharge."
--- NOTE | 2018-11-18 12:55 | General Progress Note ---
Assessment/Plan Assessment/Plan Less SOB. Needs occasional BIPAP. When arranged @ SNF DC. Subjective Allergies: Coded Allergies: No Known Allergies (Unverified , 11/02/18) Subjective Less SOB Objective Last 24 Hour Vital Signs Date Time Temp Pulse Resp B/P (MAP) Pulse Ox O2 Delivery O2 Flow Rate FiO2 11/18/18 12:00 97.0 74 22 132/66 (88) 92 11/18/18 12:00 10.0 11/18/18 12:00 Venturi Mask 10.0 11/18/18 11:31 69 11/18/18 10:28 98.2 11/18/18 09:57 84 155/81 11/18/18 08:05 10.0 11/18/18 08:04 Venturi Mask 10.0 11/18/18 08:00 78 11/18/18 08:00 98.2 84 22 155/81 (105) 94 11/18/18 07:46 73 20 Venturi Mask 55 11/18/18 07:46 Venturi Mask 14.0 55 11/18/18 07:46 95 Venturi Mask 15.0 55 11/18/18 04:00 98.1 71 24 141/76 (97) 100 11/18/18 04:00 10.0 11/18/18 04:00 Venturi Mask 10.0 11/18/18 04:00 82 11/18/18 00:30 69 11/18/18 00:00 Venturi Mask 10.0 11/18/18 00:00 98.4 61 24 128/61 (83) 94 11/18/18 00:00 10.0 11/17/18 21:28 90 154/84 11/17/18 20:00 78 11/17/18 20:00 Venturi Mask 10.0 11/17/18 20:00 98.6 80 24 132/65 (87) 94 11/17/18 20:00 10.0 11/17/18 19:40 78 21 Venturi Mask 40 11/17/18 19:40 95 Venturi Mask 40 11/17/18 19:40 Venturi Mask 10.0 40 11/17/18 16:00 10.0 11/17/18 16:00 71 11/17/18 16:00 Venturi Mask 10.0 11/17/18 16:00 97.2 71 22 124/72 (89) 94 11/17/18 13:00 Venturi Mask 10.0 11/17/18 12:55 83 18 94 Intake and Output 11/17/18 11/18/18 18:59 06:59 Intake Total 45 ml 740 ml Output Total 1040 ml Balance 45 ml -300 ml Tube Feeding 45 ml 540 ml Other 200 ml Output Urine Total 1040 ml # Voids 1 # Bowel Movements 2 Laboratory Tests 11/18/18 03:40: White Blood Count 8.7, Red Blood Count 4.93, Hemoglobin 13.2L, Hematocrit 41.6L , Mean Corpuscular Volume 84, Mean Corpuscular Hemoglobin 26.7L, Mean Corpuscular Hemoglobin Concent 31.6L, Red Cell Distribution Width 15.4H, Platelet Count 256, Mean Platelet Volume 6.3L, Neutrophils (%) (Auto) 84.7H, Lymphocytes (%) (Auto) 7.7L, Monocytes (%) (Auto) 7.2, Eosinophils (%) (Auto) 0.0, Basophils (%) (Auto) 0.5, Sodium Level 146H, Potassium Level 3.9, Chloride Level 107, Carbon Dioxide Level 32, Anion Gap 7, Blood Urea Nitrogen 42H, Creatinine 1.0, Estimat Glomerular Filtration Rate > 60, Glucose Level 192H, Calcium Level 10.2H 11/18/18 08:58: Arterial Blood pH 7.452H, Arterial Blood Partial Pressure CO2 52.7H, Arterial Blood Partial Pressure O2 53.8L, Arterial Blood HCO3 36.0H, Arterial Blood Oxygen Saturation 87.6*L, Arterial Blood Base Excess 10.2*H, Kieran Test Positive Height (Feet): 6 Height (Inches): 0.00 Weight (Pounds): 158 Objective On BIPAP CV RR Lungs B Ronchi + wheezes Abd SNT BS +. New PEG. E No CCE Ernesto Reynoso MD Nov 18, 2018 12:54
[2018-11-18 16:00] VITALS: BP 123/64
--- NOTE | 2018-11-18 19:17 | NUR ---
HAND-OFF: Report given to Juan Hines.
--- NOTE | 2018-11-18 19:30 | NUR ---
NURSE NOTES: Recvd.quiet in bed AAO watching TV.Resp.slight labored on exertion.O2 3L/NC inh. on.Sat.95%.HOB >30'.Enc.Deep breathing coughing ex.See V/S.Scope SR.c/o pain on back.Medicated.Pos. to comfort.GT-Feeding in progress.Res.-0, Voided Freely.
[2018-11-18 20:00] VITALS: BP 150/75
--- NOTE | 2018-11-18 22:00 | NUR ---
NURSE NOTES: HS Care rendered.Pos.chg.Made comfortable.Stated feels much better.Due meds admin.Cont.to enc.deep breathing/coughing ex.
[2018-11-19] VITALS: BP 145/70
--- NOTE | 2018-11-19 00:10 | NUR ---
NURSE NOTES: Placed back on BIPAP per requested.Sat.-97%.See V/S.Scope rhythm same.Med. for c/o backpain with releif.
[2018-11-19] MEDS: Albuterol/Ipratropium 3ml neb HHN PRN ×2 (00:40→13:15)
--- NOTE | 2018-11-19 01:00 | Progress Note ---
DATE: 11/18/2018 CARDIOLOGY PROGRESS NOTE SUBJECTIVE: Condition with limited improvement. The patient is still with significant congestion and requiring occasional BiPAP. PHYSICAL EXAMINATION: VITAL SIGNS: Blood pressure 132/66, pulse 74, respiratory rate 22. LUNGS: Coarse breath sounds. Scattered rhonchi. HEART: Regular rhythm and rate. Normal S1, S2. ABDOMEN: Soft. No edema. LABORATORY DATA: White count is 8.7, hemoglobin 13.2. ABG, pH 7.45, pCO2 52, pO2 54. Sodium 146, potassium 3.9, BUN 42, creatinine 1. IMPRESSION: 1. Dehydration. 2. Hypernatremia. 3. Prerenal azotemia. 4. Chronic respiratory acidosis. 5. COPD exacerbation. 6. Acute bronchospasm. 7. Pleuritic chest pain. 8. Possible esophageal tumor. 9. Dysphagia status post PEG. PLAN: 1. Nutritional support by feeding tube. 2. Bronchodilator. 3. Respiratory hygiene. 4. BiPAP support. 5. Hypotonic hydration. 6. No anti-platelet or anticoagulation due to increased bleeding risks at this time. Paulo Barnhart M.D. DR: YUKO JOB#: [id number] CC:
[2018-11-19] MEDS: HYDROcodone/Acetamin 10/325 tab GT PRN ×3 (01:22→15:52)
[2018-11-19 04:00] VITALS: BP 158/88
--- NOTE | 2018-11-19 04:34 | NUR ---
NURSE NOTES: OFF on BIPAP back 3L/NC inh.Per patient request.Cont.Plan of care.
[2018-11-19 05:50] LABS: BASOPHILS % (AUTO) 0.4 % (0.0-2.0); HEMATOCRIT 40.3 % (42.0-52.0); HEMOGLOBIN 12.7 G/DL (14.2-18.0); MEAN CORPUSCULAR VOLUME 85 FL (80-99); MONOCYTES % (AUTO) 8.2 % (1.0-10.0); NEUTROPHILS % (AUTO) 80.3 % (45.0-75.0); PLATELET COUNT 235 K/UL (150-450); RED BLOOD COUNT 4.73 M/UL (4.70-6.10); RED CELL DISTRIBUTION WIDTH 15.3 % (11.6-14.8); WHITE BLOOD COUNT 7.8 K/UL (4.8-10.8)
[2018-11-19 06:10] LABS: ANION GAP 6 mmol/L (5-15); BLOOD UREA NITROGEN 49 mg/dL (7-18); CALCIUM 9.6 MG/DL (8.5-10.1); CARBON DIOXIDE 33 MMOL/L (21-32); CHLORIDE 106 MMOL/L (98-107); CREATININE 1.1 MG/DL (0.55-1.30); PHOSPHORUS 3.2 MG/DL (2.5-4.9); SODIUM 145 MMOL/L (136-145)
[2018-11-19] MEDS: Metoclopramide 10mg/10ml Liq GT SCH ×2 (06:23→15:52)
--- NOTE | 2018-11-19 07:27 | NUR ---
HAND-OFF: Report given to DAVID ROMEO.
--- NOTE | 2018-11-19 07:30 | NUR ---
NURSE NOTES: Patient received lying in bed, asleep, on venturi mask 40%, respirations even and unlabored. No complains of pain at this time. On tube feeding Osmolite 1.5 @ 45 ml/hr, no residual, HOB elevated for aspiration precaution. Left forearm IV saline lock. Sinus Rhythm on the monitor, rate of 70s. Safety measures implemented, call light placed within reach.
[2018-11-19 08:00] VITALS: BP 142/66
[2018-11-19] MEDS: Docusate 100mg/10ml Liq GT SCH (08:45)
[2018-11-19] MEDS: Milk of Magnesia 30ml Ud ORAL SCH (08:45)
[2018-11-19] MEDS: Ferrous Sulfate 300 MG/5 ML UDC GT SCH (08:45)
[2018-11-19] MEDS: Solu-MEDROL 40mg Inj IVP SCH ×2 (08:45→18:14)
[2018-11-19] MEDS: Heparin 5000 units/ml inj SUBQ SCH (08:47)
--- NOTE | 2018-11-19 10:49 | NUR ---
RADIOLOGY DEPT CHEST X-RAY DONE.-P.DYE
--- NOTE | 2018-11-19 11:04 | GI Progress Note ---
Assessment/Plan Problems: (1) Submucosal lesion of esophagus ICD Codes: K22.8 - Other specified diseases of esophagus SNOMED: 642897184 (2) Anemia ICD Codes: D64.9 - Anemia, unspecified SNOMED: 174138074 (3) Iron deficiency ICD Codes: E61.1 - Iron deficiency SNOMED: 62776722 (4) Respiratory distress ICD Codes: R06.03 - Acute respiratory distress SNOMED: 996741129 (5) Mediastinal mass ICD Codes: J98.59 - Other diseases of mediastinum, not elsewhere classified SNOMED: 02305599 Status: unchanged Status Narrative Discussed with Dr. Arias Assessment/Plan Recent EGD/EUS performed at [facility], noted with metastatic esophageal submucosal lesion. s/p PEG placement tolerating TF fu labs Pulmonary, oncology recs dc planning per primary team The patient was seen and examined at bedside and all new and available data was reviewed in the patients chart. I agree with the above findings, impression and plan. (Patient seen earlier today. Signature stamp does not reflect patient encounter time.). - Jerry Arias MD Subjective Subjective SOB and coughing Objective Last 24 Hour Vital Signs Date Time Temp Pulse Resp B/P (MAP) Pulse Ox O2 Delivery O2 Flow Rate FiO2 11/19/18 08:45 77 142/66 11/19/18 08:00 71 11/19/18 08:00 Venturi Mask 10.0 11/19/18 08:00 98.6 77 21 142/66 (91) 94 11/19/18 06:00 3.0 45 11/19/18 04:00 97.7 78 24 158/88 (111) 97 11/19/18 04:00 Nasal Cannula 3.0 11/19/18 04:00 78 11/19/18 04:00 3.0 11/19/18 03:00 84 19 98 Facial 40 11/19/18 02:00 97.7 11/19/18 00:49 87 19 98 Bi-pap 40 11/19/18 00:47 87 19 95 Facial 40 11/19/18 00:41 87 19 94 Bi-pap 40 11/19/18 00:00 Nasal Cannula 3.0 11/19/18 00:00 74 11/19/18 00:00 40 11/19/18 00:00 96.9 74 20 145/70 (95) 97 3/5/19 22:43 Nasal Cannula 3.0 32 11/18/18 22:43 69 20 Nasal Cannula 3.0 32 11/18/18 22:43 95 Nasal Cannula 3.0 32 11/18/18 20:42 59 11/18/18 20:00 98.2 74 20 150/75 (100) 95 11/18/18 20:00 Nasal Cannula 3.0 11/18/18 20:00 3.0 11/18/18 20:00 74 11/18/18 19:55 87 11/18/18 16:27 Nasal Cannula 3.0 11/18/18 16:25 10.0 11/18/18 16:00 Venturi Mask 10.0 11/18/18 16:00 97.0 68 20 123/64 (83) 98 11/18/18 15:41 63 11/18/18 12:00 97.0 74 22 132/66 (88) 92 11/18/18 12:00 10.0 11/18/18 12:00 Venturi Mask 10.0 11/18/18 11:31 69 Intake and Output 11/18/18 11/19/18 19:00 07:00 Intake Total 920 ml 840 ml Output Total 360 ml Balance 920 ml 480 ml Intake Oral 100 ml Free Water 380 ml 200 ml Tube Feeding 540 ml 540 ml Output Urine Total 360 ml # Voids 3 Laboratory Tests Test 11/19/18 03:50 White Blood Count 7.8 K/UL (4.8-10.8) Red Blood Count 4.73 M/UL (4.70-6.10) Hemoglobin 12.7 G/DL (14.2-18.0) L Hematocrit 40.3 % (42.0-52.0) L Mean Corpuscular Volume 85 FL (80-99) Mean Corpuscular Hemoglobin 26.8 PG (27.0-31.0) L Mean Corpuscular Hemoglobin Concent 31.6 G/DL (32.0-36.0) L Red Cell Distribution Width 15.3 % (11.6-14.8) H Platelet Count 235 K/UL (150-450) Mean Platelet Volume 6.3 FL (6.5-10.1) L Neutrophils (%) (Auto) 80.3 % (45.0-75.0) H Lymphocytes (%) (Auto) 11.0 % (20.0-45.0) L Monocytes (%) (Auto) 8.2 % (1.0-10.0) Eosinophils (%) (Auto) 0.0 % (0.0-3.0) Basophils (%) (Auto) 0.4 % (0.0-2.0) Sodium Level 145 MMOL/L (136-145) Potassium Level 4.0 MMOL/L (3.5-5.1) Chloride Level 106 MMOL/L (98-107) Carbon Dioxide Level 33 MMOL/L (21-32) H Anion Gap 6 mmol/L (5-15) Blood Urea Nitrogen 49 mg/dL (7-18) H Creatinine 1.1 MG/DL (0.55-1.30) Estimat Glomerular Filtration Rate > 60 mL/min (>60) Glucose Level 148 MG/DL (74-106) H Calcium Level 9.6 MG/DL (8.5-10.1) Phosphorus Level 3.2 MG/DL (2.5-4.9) Magnesium Level 2.6 MG/DL (1.8-2.4) H Height (Feet): 6 Height (Inches): 0.00 Weight (Pounds): 151 General Appearance: WD/WN, no apparent distress, alert Cardiovascular: normal rate Respiratory/Chest: normal breath sounds, no respiratory distress Abdominal Exam: normal bowel sounds, non tender, soft Extremities: normal range of motion, non-tender Reva Wilson NP Nov 19, 2018 11:04
--- NOTE | 2018-11-19 11:15 | Diagnostic Imaging Report ---
Indication: Shortness of breath Technique: One view of the chest Comparison: 11/18/2018 Findings: Lungs are hyperinflated. Calcified granuloma again projects at the right lung base. No definite acute infiltrates or effusions. The heart size is normal. The aorta is elongated and tortuous. Mild central bronchial wall thickening is again noted. Findings are unchanged Impression: Unchanged, over one day, findings as above.
[2018-11-19 12:00] VITALS: BP 116/61
--- NOTE | 2018-11-19 12:00 | NUR ---
NURSE NOTES: Patient is calm and resting, television on. No complains or requests at this time. Call light within reach.
[2018-11-19 16:00] VITALS: BP 136/71
--- NOTE | 2018-11-19 16:02 | General Progress Note ---
Assessment/Plan Assessment/Plan Less SOB. Needs occasional BIPAP. When arranged @ SNF DC. Subjective Allergies: Coded Allergies: No Known Allergies (Unverified , 11/02/18) Subjective Less SOB Objective Last 24 Hour Vital Signs Date Time Temp Pulse Resp B/P (MAP) Pulse Ox O2 Delivery O2 Flow Rate FiO2 11/19/18 13:25 72 20 98 Venturi Mask 10.0 45 11/19/18 13:21 96 Venturi Mask 10.0 45 11/19/18 13:21 69 20 Venturi Mask 10.0 45 11/19/18 13:21 Venturi Mask 10.0 45 11/19/18 13:15 69 18 96 Venturi Mask 10.0 45 11/19/18 12:00 97.8 70 21 116/61 (79) 94 11/19/18 12:00 64 11/19/18 12:00 Venturi Mask 10.0 11/19/18 12:00 3.0 11/19/18 08:45 77 142/66 11/19/18 08:00 71 11/19/18 08:00 Venturi Mask 10.0 11/19/18 08:00 98.6 77 21 142/66 (91) 94 11/19/18 06:00 3.0 45 11/19/18 04:00 97.7 78 24 158/88 (111) 97 11/19/18 04:00 Nasal Cannula 3.0 11/19/18 04:00 78 11/19/18 04:00 3.0 11/19/18 03:00 84 19 98 Facial 40 11/19/18 02:00 97.7 11/19/18 00:49 87 19 98 Bi-pap 40 11/19/18 00:47 87 19 95 Facial 40 11/19/18 00:41 87 19 94 Bi-pap 40 11/19/18 00:00 Nasal Cannula 3.0 11/19/18 00:00 74 11/19/18 00:00 40 11/19/18 00:00 96.9 74 20 145/70 (95) 97 11/18/18 22:43 Nasal Cannula 3.0 32 11/18/18 22:43 69 20 Nasal Cannula 3.0 32 11/18/18 22:43 95 Nasal Cannula 3.0 32 11/18/18 20:42 59 11/18/18 20:00 98.2 74 20 150/75 (100) 95 11/18/18 20:00 Nasal Cannula 3.0 11/18/18 20:00 3.0 11/18/18 20:00 74 11/18/18 19:55 87 11/18/18 16:27 Nasal Cannula 3.0 11/18/18 16:25 10.0 Intake and Output 11/18/18 11/19/18 19:00 07:00 Intake Total 920 ml 840 ml Output Total 360 ml Balance 920 ml 480 ml Intake Oral 100 ml Free Water 380 ml 200 ml Tube Feeding 540 ml 540 ml Output Urine Total 360 ml # Voids 3 Laboratory Tests 11/19/18 03:50: White Blood Count 7.8, Red Blood Count 4.73, Hemoglobin 12.7L, Hematocrit 40.3L , Mean Corpuscular Volume 85, Mean Corpuscular Hemoglobin 26.8L, Mean Corpuscular Hemoglobin Concent 31.6L, Red Cell Distribution Width 15.3H, Platelet Count 235, Mean Platelet Volume 6.3L, Neutrophils (%) (Auto) 80.3H, Lymphocytes (%) (Auto) 11.0L, Monocytes (%) (Auto) 8.2, Eosinophils (%) (Auto) 0.0, Basophils (%) (Auto) 0.4, Sodium Level 145, Potassium Level 4.0, Chloride Level 106, Carbon Dioxide Level 33H, Anion Gap 6, Blood Urea Nitrogen 49H, Creatinine 1.1, Estimat Glomerular Filtration Rate > 60, Glucose Level 148H, Calcium Level 9.6, Phosphorus Level 3.2, Magnesium Level 2.6H Height (Feet): 6 Height (Inches): 0.00 Weight (Pounds): 151 Objective On BIPAP CV RR Lungs B Ronchi + wheezes Abd SNT BS +. New PEG. E No CCE Ernesto Reynoso MD Nov 19, 2018 16:02
--- NOTE | 2018-11-19 18:00 | NUR ---
NURSE NOTES: Per Dr. Reynoso, discontinue solumedrol for SNF order. Order noted and carried out.
--- NOTE | 2018-11-19 18:30 | NUR ---
NURSE NOTES: SBAR report given to DAVID German at [facility].
--- NOTE | 2018-11-19 19:29 | NUR ---
CASE MANAGEMENT: REVIEW SI: RESP DISTRESS T 98.3 HR 63 RR 21 BP 142/66 SAT 96% VENTURI MASK FIO2 45 H/H 12.7/40.3 BUN 49 IS: SOLU MEDROL IV BID HEPARIN SQ Q12HR STEP DOWN STATUS DCP: PATIENT IS FROM [facility]
--- NOTE | 2018-11-19 19:39 | NUR ---
HAND-OFF: Report given to DAVID Peña.
--- NOTE | 2018-11-19 22:31 | Progress Note ---
CARDIOLOGY PROGRESS NOTE DATE: 11/19/2018 SUBJECTIVE: The patient is tolerating feedings by G-tube. Congestion and bronchospasm persists, but have slowly improved. He still requires intermittent BiPAP support. Monitored rhythm is sinus and sinus arrhythmia. OBJECTIVE: LUNGS: Coarse breath sounds. Scattered rhonchi. HEART: Regular rhythm and rate. Normal S1, S2. ABDOMEN: Soft. G-tube intact. EXTREMITIES: Trace dependent edema. LABORATORY DATA: White count is 7.8, hemoglobin 12.7. Potassium 4, BUN 49, and creatinine 1.1. Magnesium 2.6. Chest x-ray today revealed hyperinflation with no infiltrate or effusion. IMPRESSION: 1. Dysphagia, status post percutaneous endoscopic gastrostomy. 2. Chronic obstructive pulmonary disease exacerbation. 3. Mild pulmonary hypertension. 4. Acute on chronic diastolic congestive heart failure, mostly right-sided. 5. Dehydration corrected. 6. Prerenal azotemia. 7. Hypertensive heart disease. PLAN: 1. Maintenance hydration as needed by feeding tube. 2. Nutritional support by feeding tube. 3. Bronchodilators and BiPAP support as needed. 4. Steroid taper as tolerated. 5. DVT prophylaxis with subcutaneous heparin. 6. Maintain labetalol for blood pressure management, although may consider taper off beta-talha if bronchospasm ensues. Paulo Barnhart M.D. DR: IRASEMA JOB#: [id number] CC:
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
== END 2018-11-19 20:30 | DRG 190 ==
LOC: EDUNIT# 19:14 → EDBD 19:14 → EMR 19:20 → EDBEDREQ 20:33 → 2W 20:52
DX: J44.1 Chronic obstructive pulmonary disease with (acute) exacerbation (principal); I50.31 Acute diastolic (congestive) heart failure; J96.00 Acute respiratory failure, unspecified whether with hypoxia or hypercapnia; J98.59 Other diseases of mediastinum, not elsewhere classified; C78.89 Secondary malignant neoplasm of other digestive organs; R64 Cachexia; E87.0 Hyperosmolality and hypernatremia; K21.9 Gastro-esophageal reflux disease without esophagitis; B18.2 Chronic viral hepatitis C; C80.1 Malignant (primary) neoplasm, unspecified; I11.0 Hypertensive heart disease with heart failure; F17.200 Nicotine dependence, unspecified, uncomplicated; K80.20 Calculus of gallbladder without cholecystitis without obstruction; Z85.528 Personal history of other malignant neoplasm of kidney; Z85.46 Personal history of malignant neoplasm of prostate; K74.60 Unspecified cirrhosis of liver; Z68.20 Body mass index [BMI] 20.0-20.9, adult; E86.0 Dehydration; D50.9 Iron deficiency anemia, unspecified; R13.10 Dysphagia, unspecified; I27.20 Pulmonary hypertension, unspecified
CPT/HCPCS: 36415; 36600; 71045; 80048; 80053; 82550; 82553; 82803; 83735; 83880; 84100; 84484; 85025; 85610; 85730; 87081; 93005; 93306; 94003; 94150; 94640; 94660; 94664; 94760; 96365; 96375; 99291; J2250; J2405; J7620

== ENCOUNTER 2019-02-13 13:05 | Emergency (ER) | payer MEDICARE, MEDICAID ==
[~2019-02-13] VITALS: Ht 195.6 cm; Wt 65.8 kg
[~2019-02-13 13:05] MED LIST changes: +ACETAMINOPHEN325 M1 ORAL; +FLEET ENEMA133 ML RECTAL
[2019-02-13 13:24] VITALS: BP 161/101
--- NOTE | 2019-02-13 13:28 | NUR ---
ED Nurse Note: Pt came in from home due to LUQ abdominal pain x 6 weeks. No complaint of n/v/d. Bowel sounds present on all quadrants. Last bowel movement was yesterday. Pain 8/10 puja. Also c/o rash all over the body, pt is taking Loratidine but still being itchy. AOx4, BP 161/101, ERMD aware. Other VSS puja. Will cont to monitor.
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
[2019-02-13] MEDS ORDERED: HydrOXYzine tab 25mg tab ORAL ONE (13:45)
--- NOTE | 2019-02-13 13:45 | NUR ---
ED Nurse Note: Pt down to CT for imaging. Blood and urine collected and sent to lab.
[2019-02-13 14:02] LABS: BASOPHILS % (AUTO) 1.4 % (0.0-2.0); EOSINOPHILS % (AUTO) 1.1 % (0.0-3.0); HEMATOCRIT 36.3 % (42.0-52.0); HEMOGLOBIN 11.7 G/DL (14.2-18.0); LYMPHOCYTES % (AUTO) 18.2 % (20.0-45.0); MEAN CORPUSCULAR VOLUME 90 FL (80-99); NEUTROPHILS % (AUTO) 65.3 % (45.0-75.0); PLATELET COUNT 201 K/UL (150-450); RED BLOOD COUNT 4.03 M/UL (4.70-6.10); RED CELL DISTRIBUTION WIDTH 18.5 % (11.6-14.8); WHITE BLOOD COUNT 3.7 K/UL (4.8-10.8)
[2019-02-13 14:18] LABS: ANION GAP 10 mmol/L (5-15); BLOOD UREA NITROGEN 12 mg/dL (7-18); CALCIUM 9.2 MG/DL (8.5-10.1); CARBON DIOXIDE 24 MMOL/L (21-32); CHLORIDE 104 MMOL/L (98-107); CREATININE 1.2 MG/DL (0.55-1.30); POTASSIUM 4.2 MMOL/L (3.5-5.1); SODIUM 138 MMOL/L (136-145)
[2019-02-13 14:20] LABS: ALANINE AMINOTRANSFERASE 13 U/L (12-78); ALKALINE PHOSPHATASE 103 U/L (46-116); APPEARANCE,URINE CLEAR; ASPARTATE AMINO TRANSFERASE 17 U/L (15-37); BILIRUBIN, URINE NEGATIVE (NEGATIVE); BILIRUBIN,TOTAL 0.3 MG/DL (0.2-1.0); GLUCOSE, URINE (UA) NEGATIVE (NEGATIVE); KETONES,URINE 1+ (NEGATIVE); LEUKOCYTE ESTERASE ,URINE 1+ (NEGATIVE); NITRITE,URINE NEGATIVE (NEGATIVE); PH,URINE 5 (4.5-8.0); PROTEIN,URINE 1+ (NEGATIVE); UROBILINOGEN,URINE 1 MG/DL (0.0-1.0)
[2019-02-13 14:23] LABS: COLOR,URINE YELLOW
--- NOTE | 2019-02-13 14:31 | Diagnostic Imaging Report ---
Indication: Abdominal pain Technique: Continuous helical transaxial imaging of the abdomen and pelvis was obtained from the lung bases to the pubic symphysis. No intravenous contrast was administered. Coronal 2-D reformats were also obtained. Automatic Exposure Control was utilized. Total Dose length Product (DLP): 693.[address] Dose Index Volume (CTDIvol): 13.21 mGy Comparison: none Findings: Fine, reticular densities noted at the periphery of the lung bases consistent with mild fibrosis. There are tiny paraseptal blebs noted. Calcified granuloma demonstrated at the right lung base. Extensive granulomata are noted in the spleen. The liver and spleen spleen are enlarged. Tiny serpiginous structures in the upper abdomen may be portosystemic varices. This is questionable. Gallstones noted. Aorta is moderately calcified. The right kidney is absent. There are surgical clips in the right nephrectomy bed. There is a hypodensity in the left kidney not adequately evaluated on this examination measuring 1.6 cm. There is some nodularity of the liver. There is no ascites. Bowel gas pattern is nonobstructive. The appendix is normal. Diverticula demonstrated within the colon. No evidence of acute diverticulitis. There are multiple tiny nodes within the mesentery and retroperitoneum. Bladder is unremarkable. There is narrowing of intervertebral discs and accompanying endplate osteophyte formation. Hypertrophied facet joints also demonstrated. IMPRESSION: Evidence of chronic liver disease/cirrhosis. Hepatomegaly noted. Stigmata of portal hypertension with splenomegaly and probable small varices. Cholelithiasis Old granulomatous disease Status post right nephrectomy. Normal appendix. Atherosclerotic disease. Diverticulosis of the colon. Basilar lung fibrosis. Spondylosis. The CT scanner at [facility] is accredited by the [employer] and the scans are performed using dose optimization techniques as appropriate to a performed exam including Automatic Exposure control.
[2019-02-13] MEDS ORDERED: NORCO 5-325 TA1 EACH ORAL (14:39)
[2019-02-13] MEDS ORDERED: PEPCID AC20 M2 PO (14:39)
[2019-02-13] MEDS ORDERED: HYDROXYZINE PAM25 MG PO (14:40)
[2019-02-13 14:52] VITALS: BP 164/60
[2019-02-13 14:53] VITALS: BP 164/60
--- NOTE | 2019-02-13 14:53 | NUR ---
ER DISCHARGE NOTE: Patient is cleared to be discharged per ERMD, pt is aox4, on room air, with stable vital signs. pt was given dc and prescription instructions, pt was able to verbalize understanding, pt id band and iv site removed without complications. pt is able to ambulate with steady gait. pt took all belongings.
== END 2019-02-13 14:53 | disposition home or self-care (01) ==
LOC: EMR 13:30
DX: R10.12 Left upper quadrant pain (principal); J98.59 Other diseases of mediastinum, not elsewhere classified; J44.9 Chronic obstructive pulmonary disease, unspecified; K21.9 Gastro-esophageal reflux disease without esophagitis; C80.1 Malignant (primary) neoplasm, unspecified; Z79.899 Other long term (current) drug therapy
CPT/HCPCS: 36415; 74176; 80053; 81003; 83690; 85025; 96374; 99284; S0028

== ENCOUNTER 2019-04-27 18:37 | Inpatient (IN) | payer MEDICARE, MEDICAID ==
[~2019-04-27] VITALS: Ht 198.1 cm; Wt 68.2 kg
[~2019-04-27 18:37] MED LIST changes: +HYDROXYZINE PAM25 MG PO; +NORCO 5-325 TA1 EACH ORAL; +PEPCID AC20 M2 PO
[2019-04-27] MEDS ORDERED: LAMICTAL25 MG ORAL (18:45)
[2019-04-27] MEDS ORDERED: VITAMIN B COMP1 EAC2 ORAL (18:45)
[2019-04-27] MEDS ORDERED: LISINOPRIL5 MG ORAL (18:45)
[2019-04-27] MEDS ORDERED: CAPOTEN12.5 MG ORAL (18:45)
[2019-04-27] MEDS ORDERED: CALCITRIOL0.25 MCG PO (18:45)
[2019-04-27 19:09] VITALS: BP 138/55
--- NOTE | 2019-04-27 19:09 | NUR ---
ED Nurse Note: pt arrives via [facility] from [facility] for being found aloc on floor. per staff they think he had a seizure as he has hx of same. seizure precautions implemented upon arrival pt with multiple skin tears as noted and redness to cocyx noted. pt is arouseable to loud verbal stimuli but remains with slurred speech and only oriented to self. pt is cooperative with interventions.no resp distress noted and no oral trauma noted.
--- NOTE | 2019-04-27 19:10 | NUR ---
ED Nurse Note: NOTABLE BRUISES, AND ABRASIONS ON PTS LOWER AND UPPER EXTREMIES
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
[2019-04-27 19:33] LABS: ANION GAP 18 mmol/L (5-15); BLOOD UREA NITROGEN 20 mg/dL (7-18); CALCIUM 9.5 MG/DL (8.5-10.1); CARBON DIOXIDE 16 MMOL/L (21-32); CHLORIDE 106 MMOL/L (98-107); CREATININE 1.7 MG/DL (0.55-1.30); POTASSIUM 4.3 MMOL/L (3.5-5.1); SODIUM 140 MMOL/L (136-145)
[2019-04-27] MEDS ORDERED: LORazepam Inj 2mg/ml 1ml ONE (19:39)
[2019-04-27] MEDS ORDERED: levETIRAcetam 1,000mg/NS100ml 100 ML IVPB ONE (19:45)
[2019-04-27 19:46] LABS: ALANINE AMINOTRANSFERASE 15 U/L (12-78); ALBUMIN 3.8 G/DL (3.4-5.0); ALBUMIN/GLOBULIN RATIO 0.9 (1.0-2.7); ALKALINE PHOSPHATASE 91 U/L (46-116); ASPARTATE AMINO TRANSFERASE 17 U/L (15-37); BILIRUBIN,TOTAL 0.3 MG/DL (0.2-1.0); CKMB < 0.5 NG/ML (0.0-3.6); CREATINE KINASE 45 U/L (26-308)
[2019-04-27 19:52] LABS: HEMATOCRIT 34.8 % (42.0-52.0); HEMOGLOBIN 11.9 G/DL (14.2-18.0); MEAN CORPUSCULAR VOLUME 91 FL (80-99); PLATELET COUNT 179 K/UL (150-450); RED BLOOD COUNT 3.84 M/UL (4.70-6.10); RED CELL DISTRIBUTION WIDTH 13.7 % (11.6-14.8); WHITE BLOOD COUNT 7.1 K/UL (4.8-10.8)
--- NOTE | 2019-04-27 19:59 | NUR ---
ED Nurse Note: pt sent down for CT
[2019-04-27] MEDS ORDERED: Dexamethasone 4mg/ml vial IVP ONE (20:00)
--- NOTE | 2019-04-27 20:05 | NUR ---
ED Nurse Note: Per robin discard decadron order. do not administer at this time.
--- NOTE | 2019-04-27 20:10 | NUR ---
ED Nurse Note: ROOMMATE AT BEDSIDE, SOWMYAKenia KRISHNAMURTHY [phone]
--- NOTE | 2019-04-27 20:17 | NUR ---
ED Nurse Note: RT AT BEDSIDE
--- NOTE | 2019-04-27 20:20 | NUR ---
ED Nurse Note: Pt returned from CT
[2019-04-27] MEDS: Albuterol/Ipratropium 3ml neb HHN SCH ×2 (20:24→20:25)
--- NOTE | 2019-04-27 20:34 | Diagnostic Imaging Report ---
CT HEAD WITHOUT CONTRAST INDICATION: Reason For Exam: TRAUMA Technique: Continuous helical CT scanning of the head was performed without intravenous contrast material. Axial and coronal 5 mm sections were generated. Radiation dose was minimized using automated exposure control DOSE: Total Dose Length Product - DLP 4032.[address] Dose Index - CTDIvol(s) 70.38,70.38,70.38 mGy. COMPARISON: None available FINDINGS: Extremely limited exam due to severe motion artifact; the exam is nondiagnostic for the posterior fossa. There is extensive left frontal encephalomalacia with associated ex vacuo dilatation of the left lateral ventricle. There is a rounded hyperdensity centered in the left frontal subcortical white matter. IMPRESSION: Extremely limited examination due to severe motion artifact. Left frontal encephalomalacia with rounded hyperdensity in the left frontal subcortical white matter in the setting of trauma, acute intracranial hemorrhage is not excluded and repeat CT head is recommended. Ordering provider could not be reached at time of interpretation and summary of report was provided to inpatient nurse at approximately 9AM on 04/28/2019. These findings are concordant with the [facility] preliminary report. The CT scanner at [facility] is accredited by the [employer] and the scans are performed using protocols designed to limit radiation exposure to as low as reasonably achievable to attain images of sufficient resolution adequate for diagnostic evaluation.
--- NOTE | 2019-04-27 22:23 | NUR ---
ED Nurse Note: TELEPHONE REPORT GIVEN TO CLARENCE RN
[2019-04-27] MEDS ORDERED: Tetanus/Diptheria/Pertussis IM ONE (22:30)
--- NOTE | 2019-04-27 22:30 | NUR ---
NURSE NOTES: Received patient from ED nurse Halie HERNANDEZ. Patient is awake and oriented x3, receiving oxygen via Nasal Canula at 2L/min, patient tolerating well showing no signs of respiratory distress. IV site is Right Forearm 20g, patent and intact. Bed is locked, placed in lowest position, side rails padded, side rails up x3, call light within reach. Will continue to monitor.
--- NOTE | 2019-04-27 22:40 | NUR ---
ED Nurse Note: PT SENT UP WITH YVES RN AND ROXANNA, EMT. PT IS AOX2 POSTICTAL, PT SHOWS NO ACUTE SIGNS OF DISTRESS. PT BELONGINGS BROUGHT UP. VSS
--- NOTE | 2019-04-27 22:45 | NUR ---
NURSE NOTES: Attempted to reach Dr. Reynoso for orders. Awaiting call back.
--- NOTE | 2019-04-27 23:30 | NUR ---
NURSE NOTES: Second attempt to reach Dr. Reynoso for admit orders, charge nurse made aware.
[2019-04-28] VITALS: BP 119/55
--- NOTE | 2019-04-28 00:30 | NUR ---
NURSE NOTES: Third attempt to reach Dr. Reynoso. Charge nurse made aware, awaiting call back.
--- NOTE | 2019-04-28 01:07 | NUR ---
NURSE NOTES: Fourth attempt to contact Dr. Reynoso. Nursing Engineering Manager made aware.
--- NOTE | 2019-04-28 01:58 | NUR ---
NURSE NOTES: Fifth attempt to contact Dr. Reynoso. Charge Nurse made aware.
[2019-04-28] MEDS ORDERED: HYDROcodone/Acetamin 10/325 tab ORAL PRN (02:30)
[2019-04-28] MEDS ORDERED: Albuterol/Ipratropium 3ml neb HHN PRN (02:30)
[2019-04-28] MEDS ORDERED: HYDROcodone/Acetamin 5/325 tab ORAL PRN (02:30)
[2019-04-28 04:00] VITALS: BP 110/49
--- NOTE | 2019-04-28 07:10 | NUR ---
NURSE NOTES:RECEIVED BED SIDE REPORT FROM DIVINA RN OF NOC SHIFT . RECEIVED PT WITH HOB ELEVATED 30 DEGREE AWAKE AND ALERT ,DENIES CP OR SOB AT THIS TIME.PT USING O2 @ 2L/MINTS VIA N/C,SAT 100%.PT MULTIPLE BRUISE ON BILAT ARMS AND SKIN TEARS, SKIN TEARS ON BILAT LOWER EXT,S.FULL BOY ASSESSMENT DONE.BED SIDE RAILS PADDING,NO EVIDENCE OF SEIZURES ACTIVITIES NOTED AT THIS TIME,BED ALARM ON AND CALL LIGHT WITHIN REACH.NO ACUTE DISTRESS NOTED AT THIS TIME. WILL CONT TO MONITOR.
--- NOTE | 2019-04-28 07:26 | NUR ---
HAND-OFF: Report given to Franklin HERNANDEZ.
[2019-04-28 08:00] VITALS: BP 140/81
[2019-04-28] MEDS ORDERED: Lisinopril 2.5mg tab ORAL SCH (09:00)
--- NOTE | 2019-04-28 09:00 | NUR ---
NURSE NOTES: RECEIVED A TELEPHONE CALL FROM DR LANDRY RADIOLOGYST AND REQUESTING TO TALK WITH DR JUAREZ REGARDING THE CT OF VOGT NON-DIAGNOSTIC AND POSSIBLE HEMORRHAGE AND PT MAY NEED A REPETITION OF ANOTHER CT OF VOGT. PLACED A TELEPHONE CALL TO DR JUAREZ AND MADE AWARE AND NOTIFIED REGARDING DR LANDRY RADIOLOGYST REQUESTING TO NOTIFIED REGARDING PT CT SCAN OF VOGT.DR JUAREZ ABLE TO TALK WITH DR LANDRY . NO NEW ORDERS NOTED AT THIS TIME . WILL CONT TO MONITOR.
[2019-04-28] MEDS: Calcitriol 0.25mcg Cap ORAL SCH (09:20)
[2019-04-28] MEDS: levETIRAcetam 750 MG in D5W 95 ML IV SCH ×2 (09:20→21:10)
[2019-04-28] MEDS: Docusate 100mg cap ORAL SCH ×2 (09:21→17:13)
[2019-04-28] MEDS: Milk of Magnesia 30ml Ud ORAL SCH (09:22)
--- NOTE | 2019-04-28 11:00 | NUR ---
NURSE NOTES:WOUND CARE NOTES:pt presented on admission with multiple petechiae and skin tears bilat upper ext. Pressure injuries noted to R and L lateral malleoli and L heel Cat 2 Skin tear L elbow with 20% flap loss with surrounding purpura. No exudate noted . Two Cat 3 skin tears in close proximity noted to R tibia . Each skin has 100% flap loss. Base of each wound moist and viable. No exudate noted . Non-blanching erythema without induration noted to L trochanteric (L)4cm x (W)9cm. Non-blanching erythema without induration or fluctuance R trochanteric. Sacrum pink and blanchable. Non-blanching erythema L lateral malleolus without fluctuance /induration.(L)4.5cm x (W)4cm. Partial thickness pressure injury noted to L lateral malleolus. Base of wound is moist and viable with erythema tous borders. No elevation in skin or induration periwound (L)1.5cm x (W)1.5cm. Partial thickness pressure injury L heel . Base of wound is moist and viable .edges flat and adherent to base of wound . Periwound fluctuant but blanchable. Recommendations: Cleanse skin tears L elbow and R tibia with saline. Apply Silvasorb gel. Cover each wound with Optifoam drsg. Change every 7 days and prn. Cleanse Wounds L lateral malleolus and L heel with Saline. Apply Therahoney. Cover with Optifoam drsg. Change every 3 days and prn. Apply Cavilon Skin Barrier to R and L trochanter . Cover each site with Optifoam drsg. Change every 7 days and prn. Apply Moisture Barrier paste to sacrum . Cover with Optifoam drsg. change every 3days and prn. Apply Cavilon Skin Barrier R achilles. Cover with Optifoam drsg. Change every 7 days and prn. Reposition at least every 2hours or as tolerated. Off-load heels with pillow.
--- NOTE | 2019-04-28 11:02 | Diagnostic Imaging Report ---
INDICATION: Pain status post fall TECHNIQUE: XRAY Elbow Min 3v L Multiple views of the None were obtained COMPARISON: None FINDINGS: There is no acute fracture or dislocation. Mild degenerative changes of the elbow joint. No acute soft tissue abnormality. IMPRESSION: No acute fracture or dislocation.
[2019-04-28 12:00] VITALS: BP 98/46
--- NOTE | 2019-04-28 14:49 | NUR ---
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 from [facility] CC: possible seizure, staff found PT on ground in hallway, altered, abrasion to L-elbow, no visible head trauma, PT on chemo tx, last chemo tx was today, PT taking Lamictal, accucheck 154 SI: Seizure VS: BP: 151/76 HR: 114 RR 18 02 Sat 97% (RA) T: 98.2 NT: RBC 3.84 CO2 16 Anion Gap 18 BUN 20 Creatinine 1.7 Glucose random 153 Phenytoin 0.5 Valproic acid 3 Carbazepine 0.5 ABG 7.288; 45.3; 20.4; -6.0; 31.8 CT head: Left frontal encephalomalacia with rounded hyperdensity in the left frontal subcortical white matter in the setting of trauma, acute intracranial hemorrhage is not excluded and repeat CT head is recommended. IS: NS 500ml IV Keppra 1000mg IVPB Admitted to SDU SDU status DCP: Pending Hospital Stay
[2019-04-28 16:00] VITALS: BP 129/59
--- NOTE | 2019-04-28 17:17 | History & Physical ---
History of Present Illness General Reason for Hospitalization: Seizure Present Illness HPI The patient was found down on the floor. Hx of seizures. Reports L elbow pain and has R elbow skin tears. Allergies: Coded Allergies: No Known Allergies (Unverified , 02/13/19) Medication History Scheduled Abacavir/Dolutegravir/Lamivudi (Triumeq 600-50-300 mg Tablet), 1 EACH PO DAILY, (Reported) Bisacodyl* (Dulcolax*), 30 ML RECTAL ONCE, (Reported) Calcitriol (Calcitriol), 0.25 MCG PO DAILY, (Reported) Captopril (Captopril), 12.5 MG ORAL TID, (Reported) Docusate Sodium* (Docusate Sodium*), 100 MG ORAL TWICE A DAY, (Reported) Escitalopram Oxalate* (Lexapro*), 10 MG ORAL DAILY, (Reported) Famotidine (Famotidine), 20 MG ORAL TWICE A DAY, (Reported) Famotidine (Pepcid Ac), 20 MG PO DAILY Ferrous Sulfate* (Ferrous Sulfate*), 325 MG ORAL DAILY, (Reported) Hydroxyzine Pamoate (Hydroxyzine Pamoate), 25 MG PO EVERY 6 HOURS Labetalol Hcl* (Normodyne*), 100 MG ORAL EVERY 12 HOURS, (Reported) Lamotrigine* (Lamictal*), 25 MG ORAL DAILY, (Reported) Lisinopril (Lisinopril*), 10 MG ORAL DAILY, (Reported) Magnesium Hydroxide* (Milk Of Magnesia*), 30 ML ORAL DAILY, (Reported) Na Phos,M-B/Na Phos,Di-Ba* (Fleet Enema*), 133 ML RECTAL EVERY 72 HOURS, ( Reported) Pantoprazole* (Pantoprazole*), 20 MG ORAL DAILY, (Reported) Vitamin B Complex (Vitamin B Complex), 1 CAP ORAL DAILY, (Reported) Scheduled PRN Acetaminophen* (Acetaminophen 325MG Tablet*), 650 MG ORAL Q6H PRN for Pain Scale (3-5), (Reported) Hydrocodone Bit/Acetaminophen 10-325* (Imperial 10-325*), 1 TAB ORAL Q4H PRN for For Pain, (Reported) Hydrocodone Bit/Acetaminophen 5-325* (Imperial 5-325*), 1 TAB ORAL Q6H PRN for For Pain Ipratropium/Albuterol Sulfate (DuoNeb 0.5-3(2.5)mg/3ml), 3 ML HHN Q6HRT PRN Patient History Healthcare decision maker Resuscitation status Full Code Advanced Directive on File Review of Systems Review of Symptoms General ROS: no weight loss or fever Psychological ROS: no depression Ophthalmic ROS: no visual changes or eye irritation ENT ROS: no nasal congestion, hearing loss, dizziness Allergy and Immunology ROS: no allergic symptoms or urticaria Hematological and Lymphatic ROS: no swollen glands, unusual bleeding or bruising Endocrine ROS: no polyuria, polydipsia, weight changes, temperature intolerance Respiratory ROS: reports cough, sob Cardiovascular ROS: no chest pain or dyspnea on exertion Gastrointestinal ROS: denies abdominal pain Musculoskeletal ROS: reports right arm pain and left elbow pain Neurological ROS: no TIA/stroke symptoms Dermatological ROS: right arm skin tear (wound consult completed by residential roofer helper) Physical Exam Physical Exam General appearance: alert, no distress, appears stated age Head: Normocephalic, without obvious abnormality Eyes: conjunctivae/corneas clear. PERRL, EOM's intact. Fundi benign Throat: Lips, mucosa, and tongue normal. Teeth and gums normal Neck: supple, symmetrical, trachea midline, no adenopathy, thyroid: not enlarged, symmetric, no tenderness/mass/nodules, no carotid bruit and no JVD Lungs: clear to auscultation bilaterally Heart: regular rate and rhythm, S1, S2 normal, no murmur, click, rub or gallop Abdomen: soft, non-tender. Bowel sounds normal. No masses, no organomegaly Extremities: Left elbow edema and right elbow skin tears Pulses: 2+ and symmetric Skin: Skin color, texture, turgor normal. No rashes or lesions Neurologic: Grossly normal Last 24 Hour Vital Signs Date Time Temp Pulse Resp B/P (MAP) Pulse Ox O2 Delivery O2 Flow Rate FiO2 04/28/19 16:00 2.0 04/28/19 16:00 Nasal Cannula 2.0 04/28/19 16:00 98.7 72 22 129/59 (82) 98 04/28/19 12:00 2.0 04/28/19 12:00 60 04/28/19 12:00 97.6 64 22 98/46 (63) 99 04/28/19 12:00 Nasal Cannula 2.0 04/28/19 09:45 97.8 04/28/19 09:22 90 140/81 04/28/19 08:00 2.0 04/28/19 08:00 90 04/28/19 08:00 Nasal Cannula 2.0 04/28/19 08:00 97.8 72 20 140/81 (100) 100 04/28/19 04:00 2.0 04/28/19 04:00 97.9 69 20 110/49 (69) 100 04/28/19 04:00 Nasal Cannula 2.0 04/28/19 03:34 69 04/28/19 00:00 97.7 81 21 119/55 (76) 100 04/28/19 00:00 Nasal Cannula 2.0 04/28/19 00:00 2.0 04/27/19 23:18 91 04/27/19 22:41 98.6 95 23 137/59 96 Nasal Cannula 4.0 36 04/27/19 22:40 Nasal Cannula 2.0 04/27/19 20:51 95 24 100 Nasal Cannula 4.0 36 04/27/19 20:25 90 24 100 Room Air 21 04/27/19 20:25 90 24 100 Room Air 21 04/27/19 19:09 98.2 95 23 138/55 96 Room Air 04/27/19 18:56 114 18 Room Air 04/27/19 18:39 98.2 114 18 151/76 (101) 97 Room Air Intake and Output 04/27/19 04/28/19 19:00 07:00 Intake Total 0 ml 120 ml Output Total 200 ml Balance 0 ml -80 ml Intake Oral 0 ml 120 ml Output Urine Total 200 ml # Bowel Movements 1 Laboratory Tests Test 04/27/19 18:50 04/27/19 19:32 White Blood Count 7.1 K/UL (4.8-10.8) Red Blood Count 3.84 M/UL (4.70-6.10) L Hemoglobin 11.9 G/DL (14.2-18.0) L Hematocrit 34.8 % (42.0-52.0) L Mean Corpuscular Volume 91 FL (80-99) Mean Corpuscular Hemoglobin 31.0 PG (27.0-31.0) Mean Corpuscular Hemoglobin Concent 34.2 G/DL (32.0-36.0) Red Cell Distribution Width 13.7 % (11.6-14.8) Platelet Count 179 K/UL (150-450) Mean Platelet Volume 5.5 FL (6.5-10.1) L Neutrophils (%) (Auto) % (45.0-75.0) Lymphocytes (%) (Auto) % (20.0-45.0) Monocytes (%) (Auto) % (1.0-10.0) Eosinophils (%) (Auto) % (0.0-3.0) Basophils (%) (Auto) % (0.0-2.0) Differential Total Cells Counted 100 Neutrophils % (Manual) 83 % (45-75) H Lymphocytes % (Manual) 10 % (20-45) L Monocytes % (Manual) 5 % (1-10) Eosinophils % (Manual) 1 % (0-3) Basophils % (Manual) 1 % (0-2) Band Neutrophils 0 % (0-8) Platelet Estimate Adequate Platelet Morphology Normal Red Blood Cell Morphology Normal Sodium Level 140 MMOL/L (136-145) Potassium Level 4.3 MMOL/L (3.5-5.1) Chloride Level 106 MMOL/L (98-107) Carbon Dioxide Level 16 MMOL/L (21-32) L Anion Gap 18 mmol/L (5-15) H Blood Urea Nitrogen 20 mg/dL (7-18) H Creatinine 1.7 MG/DL (0.55-1.30) H Estimat Glomerular Filtration Rate 40.2 mL/min (>60) Glucose Level 153 MG/DL (74-106) H Calcium Level 9.5 MG/DL (8.5-10.1) Total Bilirubin 0.3 MG/DL (0.2-1.0) Aspartate Amino Transf (AST/SGOT) 17 U/L (15-37) Alanine Aminotransferase (ALT/SGPT) 15 U/L (12-78) Alkaline Phosphatase 91 U/L (46-116) Total Creatine Kinase 45 U/L (26-308) Creatine Kinase MB < 0.5 NG/ML (0.0-3.6) Creatine Kinase MB Relative Index 1.1 Troponin I 0.000 ng/mL (0.000-0.056) Total Protein 8.2 G/DL (6.4-8.2) Albumin 3.8 G/DL (3.4-5.0) Globulin 4.4 g/dL Albumin/Globulin Ratio 0.9 (1.0-2.7) L Salicylates Level 6.0 ug/mL (2.8-20) Acetaminophen Level < 2 MCG/ML (10-30) L Phenytoin (Dilantin) Level < 0.5 ug/mL (10-20) L Valproic Acid (Depakene) Level < 3 MCG/ML (50-100) L Carbamazepine (Tegretol) Level < 0.5 ug/mL (4.0-12.0) L Serum Alcohol < 3 mg/dL Arterial Blood pH 7.288 (7.350-7.450) Arterial Blood Partial Pressure CO2 43.6 mmHg (35.0-45.0) Arterial Blood Partial Pressure O2 < 45.3 mmHg (75.0-100.0) Arterial Blood HCO3 20.4 mmol/L (22.0-26.0) L Arterial Blood Oxygen Saturation 31.8 % (95-100) *L Arterial Blood Base Excess -6.0 (-2-2) L Kieran Test Positive Microbiology Date/Time Source Procedure Growth Status 04/27/19 21:50 Rectum Received Height (Feet): 6 Height (Inches): 6.00 Weight (Pounds): 168 Medications Current Medications Medications (Trade) Dose Ordered Sig/Luis Route PRN Reason Start Time Stop Time Status Last Admin Dose Admin Acetaminophen (Tylenol) 650 mg Q6H PRN ORAL Pain Scale (3-5) and Fever 04/28/19 02:30 05/28/19 02:29 Acetaminophen/ Hydrocodone Bitart (Imperial 10/325) 1 tab Q4H PRN ORAL For Pain(6-8) 04/28/19 02:30 05/05/19 02:29 04/28/19 09:42 Acetaminophen/ Hydrocodone Bitart (Imperial 5/325) 1 tab Q6H PRN ORAL For Pain(4-6) 04/28/19 02:30 05/05/19 02:29 Albuterol/ Ipratropium (Albuterol/ Ipratropium) 3 ml Q6H PRN HHN Shortness of Breath 04/28/19 02:30 05/03/19 02:29 Calcitriol (Rocatrol) 0.25 mcg DAILY ORAL 04/28/19 09:00 05/28/19 08:59 04/28/19 09:20 Docusate Sodium (Colace) 100 mg TWICE A DAY ORAL 04/28/19 09:00 05/28/19 08:59 04/28/19 09:21 Escitalopram Oxalate (Lexapro) 10 mg DAILY ORAL 04/28/19 09:00 05/28/19 08:59 04/28/19 09:21 Famotidine (Pepcid) 20 mg BIAC ORAL 04/28/19 06:30 05/28/19 06:29 04/28/19 06:23 Ferrous Sulfate (Feosol) 325 mg DAILY ORAL 04/28/19 09:00 05/28/19 08:59 04/28/19 09:21 Labetalol HCl (Normodyne) 100 mg EVERY 12 HOURS ORAL 04/28/19 09:00 05/28/19 08:59 04/28/19 09:22 Lamotrigine (LaMICtal) 25 mg DAILY ORAL 04/28/19 09:00 05/28/19 08:59 04/28/19 09:21 Levetiracetam 750 mg/Dextrose 102.5 ml @ 440 mls/hr Q12HR IV 04/28/19 09:00 05/28/19 08:59 04/28/19 09:20 Lisinopril (Zestril) 10 mg DAILY ORAL 04/29/19 09:00 05/29/19 08:59 Magnesium Hydroxide (Mom) 30 ml DAILY ORAL 04/28/19 09:00 05/28/19 08:59 04/28/19 09:22 Pantoprazole (Protonix) 20 mg DAILY ORAL 04/28/19 09:00 05/28/19 08:59 04/28/19 09:20 [facility] Hospital declaration INPATIENT level of care is warranted for this patient because patient is a 89 year old with who presents with suspicion of . I have a high level of concern because . Patient is at high risk for . Plan of care/treatment include . Patient care is expected to be greater than 2 midnights. OBSERVATION level of care is warranted for this patient. Patient is a 89 year old with who presents with . Patient will be admitted for 1 midnight, but if additional night(s) is/are necessary, patient will be converted to inpatient status for the entire hospitalization Disposition: Once the patient is stable to leave the hospital, I anticipate the patient will likely be discharged to the following environment: Estimated discharge date: I spent 70 minutes on this patient's case, and minutes was dedicated to counseling and/or care coordination. MIPS (Merit-based Incentive Payment System) Applicable CPT: 69386, 18384 CHECK ALL THAT ARE MET: Measure #5 (CHF): All ages. Prescribe DAY/ARB upon discharge for patients with left ventricular systolic dysfunction. If not, the reason is clearly documented in the medical chart. Measure #8 (CHF): All ages. Prescribe a beta talha upon discharge for patients with left ventricular systolic dysfunction. If not, the reason is clearly documented in the medical chart. Measure #47 Advance care plan or surrogate decision maker documented in the medical record. Measure #130 The provider has documented, updated, or reviewed the patients current medication list and has documented it in the patients note. Measure #374 (All): Send report to referring provider. Measure #407(Sepsis due to MSSA bacteremia): Age 18+ Patient treated with a beta-lactam antibiotic (Nafcillin, Oxacillin or Cefazolin) as definitive therapy. MEDICAL COMPLEXITY High complexity medical decision making (need 2/3 categories) Problem - need 4 points Acute/new problem with new plan for workup (4 points, 1 max) Acute/new problem without additional workup (3 points, 1 max) Unstable chronic problem actively being managed (2 point each, 2 max) Stable chronic problem actively being managed (1 point each, 2 max) Self-limited/transient process (constipation, muscle ache, etc) (1 point each , 2 max) Data - need 4 points Reviewed labs/imaging studies (1 points, 2 max) Independent review of imaging (EKG, xrays, etc) (2 points, 2 max) Discussed case with consult/other MD/RN (2 points, 2 max) High Risk - qualify if have one of the following: Severe exacerbation of acute problem, acute mental status change, IV narcotics , monitoring drug levels (vancomycin, INR, tacrolimus etc) Lyndsey Ibarra N.P. Apr 28, 2019 17:17
--- NOTE | 2019-04-28 19:10 | NUR ---
HAND-OFF: Report given to .ABIEL HERNANDEZ.
--- NOTE | 2019-04-28 19:11 | NUR ---
NURSE NOTES: Received patient from Franklin RN. Patient is asleep, receiving oxygen via Nasal Canula at 2L/min, patient tolerating well showing no signs of respiratory distress. IV site is Right Forearm 20g, patent and intact. Bed is locked, placed in lowest position, side rails padded, side rails up x3, call light within reach. Will continue to monitor.
[2019-04-28 20:00] VITALS: BP 137/80
[2019-04-29] VITALS: BP 143/77
[2019-04-29 04:00] VITALS: BP 108/58
--- NOTE | 2019-04-29 07:35 | NUR ---
HAND-OFF: Report given to Leny HERNANDEZ.
--- NOTE | 2019-04-29 07:37 | NUR ---
NURSE NOTES: received pt from River RN. pt is sleeping on the bed, no SOB noted. no Respiratory distress noted. no dysrhythmia reported from last shift.
[2019-04-29 08:00] VITALS: BP 135/76
[2019-04-29] MEDS: Calcitriol 0.25mcg Cap ORAL SCH (08:43)
[2019-04-29] MEDS: Milk of Magnesia 30ml Ud ORAL SCH (08:43)
[2019-04-29] MEDS: Docusate 100mg cap ORAL SCH ×2 (08:47→17:17)
[2019-04-29] MEDS: levETIRAcetam 750 MG in D5W 95 ML IV SCH ×2 (08:51→20:52)
[2019-04-29] MEDS ORDERED: Lisinopril 10mg tab ORAL SCH (09:00)
[2019-04-29 12:00] VITALS: BP 103/55
[2019-04-29 16:00] VITALS: BP 96/53
--- NOTE | 2019-04-29 17:06 | Nephrology Progress Note ---
Assessment/Plan Problem List: (1) CRISTIAN (acute kidney injury) (2) Anemia (3) Iron deficiency (4) Sepsis (5) Epileptic seizure, generalized (6) Mediastinal mass (7) COPD exacerbation (8) Nonspecific abdominal pain (9) Submucosal lesion of esophagus Plan CBC, CMP tomorrow CT abd/chest w/o contrast consideration for repeat CT of head if pt symptomatic. Initial CT r/o head injury, but possibly inconclusive due to artifact of movement. Subjective Constitutional: Reports: no symptoms HEENT: Reports: no symptoms Genitourinary: Reports: no symptoms Neurologic/Psychiatric: Reports: no symptoms Subjective The patient endorses L epigastric and L rib pain that is reproducible: CT Chest/ Abd w/o ordered The patient denies headache, nausea, vomiting, photophobia, changes in vision or light headedness. May consider repeat CT head now that patient is more alert and can stay still for CT. Objective Objective Last 24 Hour Vital Signs Date Time Temp Pulse Resp B/P (MAP) Pulse Ox O2 Delivery O2 Flow Rate FiO2 04/29/19 16:00 2.0 04/29/19 16:00 98.2 65 18 96/53 (67) 98 04/29/19 15:12 67 04/29/19 12:00 2.0 04/29/19 12:00 97.9 62 18 103/55 (71) 97 04/29/19 12:00 Nasal Cannula 2.0 04/29/19 11:31 68 04/29/19 08:45 135/76 04/29/19 08:43 71 135/76 04/29/19 08:00 97.5 71 21 135/76 (95) 97 04/29/19 08:00 2.0 04/29/19 08:00 Nasal Cannula 2.0 04/29/19 07:47 59 04/29/19 04:00 Nasal Cannula 2.0 04/29/19 04:00 2.0 04/29/19 04:00 98.0 73 20 108/58 (75) 99 04/29/19 03:34 71 04/29/19 03:34 71 04/29/19 00:00 97.9 68 20 143/77 (99) 100 04/29/19 00:00 Nasal Cannula 2.0 04/28/19 20:39 70 137/80 04/28/19 20:00 97.9 70 18 137/80 (99) 100 04/28/19 20:00 Nasal Cannula 2.0 04/28/19 20:00 2.0 04/28/19 19:26 61 04/28/19 18:52 59 20 98 Room Air 21 Intake and Output 04/28/19 04/29/19 19:00 07:00 Intake Total 440 ml 222.5 ml Output Total 570 ml 250 ml Balance -130 ml -27.5 ml Intake Oral 440 ml 120 ml IV Total 102.5 ml Output Urine Total 570 ml 250 ml # Bowel Movements 1 Height (Feet): 6 Height (Inches): 6.00 Weight (Pounds): 150 General Appearance: WD/WN, no apparent distress, alert EENT: PERRL/EOMI Neck: non-tender, normal alignment, supple Cardiovascular: normal peripheral pulses, normal rate, regular rhythm Respiratory/Chest: lungs clear, normal breath sounds Abdomen: normal bowel sounds, soft, tender Extremities: normal capillary refill Neurologic: no motor/sensory deficits, alert, oriented x 3, normal mood/affect Objective The patient is guarding abdomen and braces when pulling himself up in bed. He has multiple skin tears to his R/L legs and R/L arm covered by wound care. The bandaging is clean and no saturation noted. Lyndsey Ibarra N.P. Apr 29, 2019 17:06
--- NOTE | 2019-04-29 17:25 | NUR ---
NURSE NOTES: left message to KEILA Ibarra regarding triumeq (HIV med) awaits call back for an order.
--- NOTE | 2019-04-29 17:46 | NUR ---
NURSE NOTES: attempted to call [facility] regarding patients triumeq. not picking up.
--- NOTE | 2019-04-29 17:49 | NUR ---
NURSE NOTES: left a message to [facility] [phone] to callback facility regarding [email or web address] [email or web address].
[2019-04-29 17:52] LABS: BASOPHILS % (AUTO) 1.1 % (0.0-2.0); EOSINOPHILS % (AUTO) 1.2 % (0.0-3.0); HEMATOCRIT 34.7 % (42.0-52.0); HEMOGLOBIN 11.5 G/DL (14.2-18.0); LYMPHOCYTES % (AUTO) 25.7 % (20.0-45.0); MEAN CORPUSCULAR VOLUME 90 FL (80-99); MONOCYTES % (AUTO) 11.2 % (1.0-10.0); NEUTROPHILS % (AUTO) 60.9 % (45.0-75.0); PLATELET COUNT 153 K/UL (150-450); RED BLOOD COUNT 3.86 M/UL (4.70-6.10); RED CELL DISTRIBUTION WIDTH 13.7 % (11.6-14.8); WHITE BLOOD COUNT 3.9 K/UL (4.8-10.8)
[2019-04-29 18:09] LABS: ANION GAP 10 mmol/L (5-15); BLOOD UREA NITROGEN 18 mg/dL (7-18); CARBON DIOXIDE 24 MMOL/L (21-32); CHLORIDE 109 MMOL/L (98-107); CREATININE 0.9 MG/DL (0.55-1.30); POTASSIUM 4.4 MMOL/L (3.5-5.1); SODIUM 143 MMOL/L (136-145)
--- NOTE | 2019-04-29 19:15 | NUR ---
HAND-OFF: Report given to ha ruth.
--- NOTE | 2019-04-29 19:30 | NUR ---
NURSE NOTES: Received report from Leny HERNANDEZ, pt. in bed awake, A/O x's3- able to make needs known, no signs or symptoms of acute cardiac or respiratory distress noted, bed in lowest position and call light within easy reach, bed alarm on, side rails up x's3 ans safety brakes engaged, side rails padded for seizure precautions,pt. appears to be sating well on room air-no distress noted, urinal at bedside and within easy reach, pt. appears to be clean and dry, per endorsement pt. is NPO at midnight, RFA 20G IV intact and patent, safety measures continued, will continue with plan of care.
[2019-04-29 20:00] VITALS: BP 128/66
--- NOTE | 2019-04-29 22:00 | NUR ---
NURSE NOTES: Received a report from DAVID Pavon. Awaiting for pt's arrival.
--- NOTE | 2019-04-29 22:05 | NUR ---
NURSE NOTES: report given to Tala HERNANDEZ at [facility] pt. transferring to room 421-2- pt. remains stable and no signs of distress noted.
[2019-04-29] MEDS ORDERED: HYDROcodone/Acetamin 10/325 tab ORAL PRN ×2 (22:30)
--- NOTE | 2019-04-29 22:30 | NUR ---
NURSE NOTES: Pt arrived in the unit. He is in stable condition. AAOX3. Able to make needs known. On room air. No c/o pain/discomfort. IV site is patent and intact. Belongings checked. He has cigarettes in the nursing station. Multiple skin tears noted on upper and lower extremities. Wound picture taken. Bed in lowest position. Bed alarm is on. Call light within reach. Will continue to monitor.
[2019-04-30] VITALS: BP 126/50
[2019-04-30] MEDS ORDERED: Albuterol/Ipratropium 3ml neb HHN PRN ×2 (02:30)
[2019-04-30] MEDS ORDERED: HYDROcodone/Acetamin 5/325 tab ORAL PRN ×2 (02:30)
[2019-04-30 04:00] VITALS: BP 110/50
[2019-04-30 07:17] LABS: HEMATOCRIT 32.7 % (42.0-52.0); HEMOGLOBIN 10.6 G/DL (14.2-18.0); MEAN CORPUSCULAR VOLUME 94 FL (80-99); PLATELET COUNT 163 K/UL (150-450); RED BLOOD COUNT 3.49 M/UL (4.70-6.10); RED CELL DISTRIBUTION WIDTH 13.8 % (11.6-14.8); WHITE BLOOD COUNT 3.4 K/UL (4.8-10.8)
[2019-04-30 07:18] LABS: ALANINE AMINOTRANSFERASE 13 U/L (12-78); ALBUMIN 3.4 G/DL (3.4-5.0); ALBUMIN/GLOBULIN RATIO 0.9 (1.0-2.7); ALKALINE PHOSPHATASE 82 U/L (46-116); ANION GAP 10 mmol/L (5-15); ASPARTATE AMINO TRANSFERASE 13 U/L (15-37); BILIRUBIN,TOTAL 0.4 MG/DL (0.2-1.0); BLOOD UREA NITROGEN 16 mg/dL (7-18); CARBON DIOXIDE 23 MMOL/L (21-32); CHLORIDE 107 MMOL/L (98-107); CREATININE 0.9 MG/DL (0.55-1.30); POTASSIUM 3.9 MMOL/L (3.5-5.1); SODIUM 140 MMOL/L (136-145)
--- NOTE | 2019-04-30 07:27 | NUR ---
HAND-OFF: Report given to DAVID Cuello. Endorsed to follow up with the nurse from [facility] about the HIV med. Also, follow up with Dr. Reynoso to choose one from Protonix and Pepcirosario.
[2019-04-30 08:00] VITALS: BP 129/62
--- NOTE | 2019-04-30 08:02 | NUR ---
NURSE NOTES: Pt resting in bed. VS stable. NPO since midnight, possible CT of abd/head am. multiple bruises/tears on BUE/BLE. dressing Left elbow, CDI. bed in low position, bed alarm on, call light within reach. will continue to monitor.
[2019-04-30] MEDS: Lisinopril 10mg tab ORAL SCH (08:56)
[2019-04-30] MEDS: Docusate 100mg cap ORAL SCH ×2 (08:57→17:29)
[2019-04-30] MEDS: Calcitriol 0.25mcg Cap ORAL SCH (08:57)
[2019-04-30] MEDS: Milk of Magnesia 30ml Ud ORAL SCH (08:59)
[2019-04-30] MEDS ORDERED: Calcitriol 0.25mcg Cap ORAL SCH (09:00)
[2019-04-30] MEDS ORDERED: Lisinopril 10mg tab ORAL SCH (09:00)
[2019-04-30] MEDS ORDERED: Docusate 100mg cap ORAL SCH (09:00)
[2019-04-30] MEDS ORDERED: Milk of Magnesia 30ml Ud ORAL SCH (09:00)
[2019-04-30] MEDS: levETIRAcetam 750 MG in D5W 95 ML IV SCH ×2 (09:00→20:26)
[2019-04-30] MEDS ORDERED: levETIRAcetam 750 MG in D5W 95 ML IV SCH (09:00)
--- NOTE | 2019-04-30 10:05 | General Progress Note ---
Assessment/Plan Problem List: (1) CRISTIAN (acute kidney injury) ICD Codes: N17.9 - Acute kidney failure, unspecified SNOMED: 39168083, 9422353 (2) Anemia ICD Codes: D64.9 - Anemia, unspecified SNOMED: 227243498 (3) Iron deficiency ICD Codes: E61.1 - Iron deficiency SNOMED: 79762900 (4) Sepsis ICD Codes: A41.9 - Sepsis, unspecified organism SNOMED: 20722850 (5) Epileptic seizure, generalized ICD Codes: G40.309 - Generalized idiopathic epilepsy and epileptic syndromes, not intractable, without status epilepticus SNOMED: 48498255 (6) Mediastinal mass ICD Codes: J98.59 - Other diseases of mediastinum, not elsewhere classified SNOMED: 22028880 (7) COPD exacerbation ICD Codes: J44.1 - Chronic obstructive pulmonary disease with (acute) exacerbation SNOMED: 875521723 (8) Nonspecific abdominal pain ICD Codes: R10.9 - Unspecified abdominal pain SNOMED: 719607677 (9) Submucosal lesion of esophagus ICD Codes: K22.8 - Other specified diseases of esophagus SNOMED: 207520673 Status: doing well, stable, tolerating diet Assessment/Plan: Waiting for CT head result. Waiting for CT chest/abd results. Subjective Constitutional: Reports: no symptoms HEENT: Reports: no symptoms Cardiovascular: Reports: no symptoms Respiratory: Reports: no symptoms Gastrointestinal/Abdominal: Reports: no symptoms Genitourinary: Reports: no symptoms Neurologic/Psychiatric: Reports: no symptoms Endocrine: Reports: no symptoms Hematologic/Lymphatic: Reports: no symptoms Allergies: Coded Allergies: No Known Allergies (Unverified , 02/13/19) Subjective The patient denies any new complaints or symptoms at this time. Objective Last 24 Hour Vital Signs Date Time Temp Pulse Resp B/P (MAP) Pulse Ox O2 Delivery O2 Flow Rate FiO2 04/30/19 08:58 70 129/62 04/30/19 08:56 129/62 04/30/19 08:00 97.0 70 18 129/62 (84) 97 04/30/19 04:00 97.2 71 16 110/50 (70) 97 04/30/19 00:00 96.8 65 16 126/50 (75) 96 04/29/19 21:00 Nasal Cannula 2.0 04/29/19 21:00 70 20 96 Room Air 21 04/29/19 20:56 71 128/66 04/29/19 20:00 2.0 04/29/19 20:00 98.0 71 18 128/66 (86) 98 04/29/19 20:00 61 04/29/19 16:00 2.0 04/29/19 16:00 98.2 65 18 96/53 (67) 98 04/29/19 15:12 67 04/29/19 12:00 2.0 04/29/19 12:00 97.9 62 18 103/55 (71) 97 04/29/19 12:00 Nasal Cannula 2.0 04/29/19 11:31 68 Intake and Output 04/29/19 04/30/19 19:00 07:00 Intake Total 690 ml 690 ml Output Total 350 ml 200 ml Balance 340 ml 490 ml Intake Oral 250 ml 250 ml IV Total 440 ml 440 ml Output Urine Total 350 ml 200 ml # Voids 3 3 # Bowel Movements 1 Laboratory Tests 04/29/19 17:30: White Blood Count 3.9L, Red Blood Count 3.86L, Hemoglobin 11.5L, Hematocrit 34.7L, Mean Corpuscular Volume 90, Mean Corpuscular Hemoglobin 29.8, Mean Corpuscular Hemoglobin Concent 33.2, Red Cell Distribution Width 13.7, Platelet Count 153, Mean Platelet Volume 5.3L, Neutrophils (%) (Auto) 60.9, Lymphocytes ( %) (Auto) 25.7, Monocytes (%) (Auto) 11.2H, Eosinophils (%) (Auto) 1.2, Basophils (%) (Auto) 1.1, Sodium Level 143, Potassium Level 4.4, Chloride Level 109H, Carbon Dioxide Level 24, Anion Gap 10, Blood Urea Nitrogen 18, Creatinine 0.9, Estimat Glomerular Filtration Rate > 60, Glucose Level 97, Calcium Level 9.0 04/30/19 06:33: White Blood Count 3.4L, Red Blood Count 3.49L, Hemoglobin 10.6L, Hematocrit 32.7L, Mean Corpuscular Volume 94, Mean Corpuscular Hemoglobin 30.5, Mean Corpuscular Hemoglobin Concent 32.5, Red Cell Distribution Width 13.8, Platelet Count 163, Mean Platelet Volume 6.0L, Neutrophils (%) (Auto) , Lymphocytes (%) ( Auto) , Monocytes (%) (Auto) , Eosinophils (%) (Auto) , Basophils (%) (Auto) , Sodium Level 140, Potassium Level 3.9, Chloride Level 107, Carbon Dioxide Level 23, Anion Gap 10, Blood Urea Nitrogen 16, Creatinine 0.9, Estimat Glomerular Filtration Rate > 60, Glucose Level 95, Calcium Level 9.0, Differential Total Cells Counted 100, Neutrophils % (Manual) 57, Lymphocytes % (Manual) 28, Monocytes % (Manual) 12H, Eosinophils % (Manual) 2, Basophils % (Manual) 1, Band Neutrophils 0, Platelet Estimate Adequate, Platelet Morphology Normal, Hypochromasia 1+, Anisocytosis 1+, Total Bilirubin 0.4, Aspartate Amino Transf ( AST/SGOT) 13L, Alanine Aminotransferase (ALT/SGPT) 13, Alkaline Phosphatase 82, Total Protein 7.3, Albumin 3.4, Globulin 3.9, Albumin/Globulin Ratio 0.9L Height (Feet): 6 Height (Inches): 6.00 Weight (Pounds): 150 General Appearance: WD/WN, no apparent distress, alert EENT: PERRL/EOMI Neck: non-tender, supple Cardiovascular: normal peripheral pulses, normal rate, regular rhythm Respiratory/Chest: lungs clear, normal breath sounds, no respiratory distress Abdomen: normal bowel sounds, non tender, soft Extremities: normal range of motion, non-tender Edema: no edema noted Arm (L), no edema noted Arm (R), no edema noted Leg (L), no edema noted Leg (R) Neurologic: alert, oriented x 3 Skin: normal pigmentation, warm/dry Lyndsey Ibarra N.P. Apr 30, 2019 10:05
--- NOTE | 2019-04-30 11:01 | NUR ---
CT HEAD,CHEST, ABD AND PELVIS COMPLETED/
[2019-04-30 12:00] VITALS: BP 129/54
--- NOTE | 2019-04-30 14:58 | NUR ---
RD ASSESSMENT & RECOMMENDATIONS SEE CARE ACTIVITY FOR COMPLETE ASSESSMENT DAILY ESTIMATED NEEDS: Needs based on Underweight, HIV 68 35-40 kcals/kg 4462-5728 total kcals 1-2 g protein/kg 68-136 g total protein 25-35ml/kcal mL/kg 3363-4399 total fluid mLs NUTRITION DIAGNOSIS: * Increased kcal and protein needs R/T underweight status, as evidenced by pt is 70% IBW, w/ generalized severe wasting, BMI underweight per guidelines, h/o HIV. PO DIET RECOMMENDATIONS: LOW NA DIET/ DOUBLE PORTIONS / SOFT DIET ADDITIONAL RECOMMENDATIONS: 1) Obtain a standing weight as able for accurate CBW 2) Weekly wts given underweight status 3) Snacks in b/w all meals . .
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
[2019-04-30 16:00] VITALS: BP 108/43
--- NOTE | 2019-04-30 16:02 | NUR ---
NURSE NOTES: Called [facility], regarding pt HIV med, received list of medications but HIV med not on the list. Will continue to monitor.
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
--- NOTE | 2019-04-30 19:03 | NUR ---
CASE MANAGEMENT: REVIEW SI: SEIZURE . COPD EXACERBATION . CRISTIAN T 97.0 HR 70 RR 18 BP 129/54 SAT 97% ROOM AIR WBC 3.4 H/H 10.6/32.7 AST 13 IS: KEPPRA GTT FERROUS SULFATE PO QD COLACE PO BID PROTONIX PO QD ALBUTEROL HHN Q6HR PRN MED/SURG STATUS DCP: PATIENT IS FROM [facility]
--- NOTE | 2019-04-30 19:25 | NUR ---
OBTAINED REPORT FROM MARINA HERNANDEZ, PT RESTING IN BED.
--- NOTE | 2019-04-30 19:50 | NUR ---
HAND-OFF: Report given to Shailesh HERNANDEZ.
[2019-04-30 20:00] VITALS: BP 123/62
--- NOTE | 2019-05-01 05:00 | NUR ---
CALLED [facility] AND LEFT MESSAGE WITH CONTACT INFO REGARDING PT MEDICATION CLARIFICATION. PT MED LIST DO NOT STATE NAME OF HIV MEDICATION HE IS ON AT HOME ([facility])IN ORDER [place] [facility] [place] BACK.
--- NOTE | 2019-05-01 07:10 | NUR ---
GAVE FULL REPORT TO AZEB HERNANDEZ, PT IN BED FREE FROM DISTRESS.
[2019-05-01 08:00] VITALS: BP 133/63
--- NOTE | 2019-05-01 08:03 | NUR ---
NURSE NOTES: Received report from DAVID Fuller. Pt in bed, asleep, respiration unlabored, no apparent distress noted, bed alarm on, bed in lowest position, call light within reach.
[2019-05-01] MEDS: Docusate 100mg cap ORAL SCH ×2 (09:00→17:19)
[2019-05-01] MEDS: Milk of Magnesia 30ml Ud ORAL SCH (09:00)
[2019-05-01] MEDS: Calcitriol 0.25mcg Cap ORAL SCH (09:15)
[2019-05-01] MEDS: Lisinopril 10mg tab ORAL SCH (09:16)
[2019-05-01] MEDS: levETIRAcetam 750 MG in D5W 95 ML IV SCH ×2 (09:17→21:02)
--- NOTE | 2019-05-01 11:46 | Nephrology Progress Note ---
Assessment/Plan Problem List: (1) CRISTIAN (acute kidney injury) (2) Anemia (3) Iron deficiency (4) Sepsis (5) Epileptic seizure, generalized (6) Mediastinal mass (7) COPD exacerbation (8) Nonspecific abdominal pain (9) Submucosal lesion of esophagus Plan CBC, CMP tomorrow Consult to Oncology placed today regarding results of CT head. Subjective Constitutional: Reports: no symptoms HEENT: Reports: no symptoms Genitourinary: Reports: no symptoms Neurologic/Psychiatric: Reports: no symptoms Subjective The patient endorses L epigastric and L rib pain that is reproducible: CT Chest/ Abd w/o ordered yesterday and CT negative: most likely musculoskeletal pain. The patient denies headache, nausea, vomiting, photophobia, changes in vision or light headedness. However, CT repeated due to artifact of movement on initial CT. CT concerning (please view results). Oncology Consult placed by Angeles KELLY. Objective Objective Last 24 Hour Vital Signs Date Time Temp Pulse Resp B/P (MAP) Pulse Ox O2 Delivery O2 Flow Rate FiO2 05/01/19 09:16 133/63 05/01/19 09:16 68 133/63 05/01/19 09:00 Room Air 05/01/19 08:00 98.9 70 19 133/63 (86) 100 68 05/01/19 07:22 69 20 97 Room Air 21 04/30/19 20:29 70 123/62 04/30/19 20:26 60 18 97 Room Air 21 04/30/19 20:00 98.3 70 18 123/62 (82) 98 04/30/19 20:00 Room Air 04/30/19 16:00 98.7 66 18 108/43 (64) 97 04/30/19 12:00 98.8 63 18 129/54 (79) 97 Intake and Output 04/30/19 05/01/19 19:00 07:00 Intake Total 600 ml 102.5 ml Output Total 700 ml 700 ml Balance -100 ml -597.5 ml Intake Oral 600 ml IV Total 102.5 ml Output Urine Total 700 ml 700 ml # Voids 2 Height (Feet): 6 Height (Inches): 6.00 Weight (Pounds): 150 General Appearance: WD/WN, no apparent distress EENT: PERRL/EOMI Neck: non-tender, normal alignment, supple Cardiovascular: normal peripheral pulses, normal rate, regular rhythm Respiratory/Chest: chest wall non-tender, lungs clear, normal breath sounds, no respiratory distress Abdomen: normal bowel sounds, tender Extremities: normal range of motion Neurologic: no motor/sensory deficits, alert, oriented x 3, normal mood/affect Objective He has multiple skin tears to his R/L legs and R/L arm covered by wound care. The bandaging is clean and no saturation noted. Lyndsey Ibarra N.P. May 01, 2019 11:46
[2019-05-01 12:00] VITALS: BP 131/77
[2019-05-01 16:00] VITALS: BP 120/56
--- NOTE | 2019-05-01 18:37 | NUR ---
CASE MANAGEMENT: REVIEW SI: SEIZURE . COPD EXACERBATION . CRISTIAN T 98.2 HR 58 RR 18 BP 120/56 SAT 98% ROOM AIR CT HEAD - VASOGENIC EDEMA RELATED TO A 14 MM MASS IS: KEPPRA/D5W IV 102.5ML@440/Q12HR FERROUS SULFATE PO QD COLACE PO BID PROTONIX PO QD LAMICTAL PO QD ALBUTEROL HHN Q6HR PRN ONCOLOGY CONSULT PENDING MED/SURG STATUS DCP: PATIENT IS FROM [facility]
--- NOTE | 2019-05-01 19:31 | NUR ---
NURSE NOTES: Received patient asleep in bed, no s/s of acute distress, IV access asymptomatic, dressing dry and intact. No s/s of acute distress. Fall and safety precautions taken, siderails padded.
--- NOTE | 2019-05-01 19:43 | NUR ---
HAND-OFF: Report given to DAVID Tomlinson.
[2019-05-01 20:00] VITALS: BP 121/48
--- NOTE | 2019-05-01 23:00 | Diagnostic Imaging Report ---
APPROVED REPORT CPT Code: 63714 Present Symptoms Lower Extremity Pain: Comments: AMS BILATERAL: Imaging reveals a patent deep venous system bilaterally. There is no evidence of thrombus within the femoral, popliteal or tibial segments. The greater saphenous veins are also within normal limits. Doppler indicates normal spontaneous flow within these segments.
[2019-05-02 00:24] VITALS: BP 120/50
[2019-05-02 06:27] LABS: HEMATOCRIT 33.7 % (42.0-52.0); HEMOGLOBIN 10.7 G/DL (14.2-18.0); MEAN CORPUSCULAR VOLUME 95 FL (80-99); PLATELET COUNT 156 K/UL (150-450); RED BLOOD COUNT 3.56 M/UL (4.70-6.10); RED CELL DISTRIBUTION WIDTH 13.6 % (11.6-14.8); WHITE BLOOD COUNT 3.3 K/UL (4.8-10.8)
[2019-05-02 06:41] LABS: ALANINE AMINOTRANSFERASE 19 U/L (12-78); ALBUMIN 3.3 G/DL (3.4-5.0); ALBUMIN/GLOBULIN RATIO 0.8 (1.0-2.7); ALKALINE PHOSPHATASE 77 U/L (46-116); ANION GAP 6 mmol/L (5-15); ASPARTATE AMINO TRANSFERASE 16 U/L (15-37); BILIRUBIN,TOTAL 0.4 MG/DL (0.2-1.0); BLOOD UREA NITROGEN 13 mg/dL (7-18); CALCIUM 9.2 MG/DL (8.5-10.1); CARBON DIOXIDE 27 MMOL/L (21-32); CHLORIDE 109 MMOL/L (98-107); CREATININE 1.1 MG/DL (0.55-1.30); POTASSIUM 4.7 MMOL/L (3.5-5.1); SODIUM 142 MMOL/L (136-145)
[2019-05-02 07:03] VITALS: BP 117/56
--- NOTE | 2019-05-02 07:36 | NUR ---
HAND-OFF: Report given to DAVID Olea.
--- NOTE | 2019-05-02 07:38 | NUR ---
NURSE NOTES: received pt from NOC RN Abdi Moy. Patient laying in bed, asleep, with face covered by blanket. IV access on the RFA intact. Bed in the lowest position possible, call light within easy reach, siderails up x2. Urinal by pt's bedside. Will continue to monitor pt and follow up with the plan of care.
[2019-05-02] MEDS: Milk of Magnesia 30ml Ud ORAL SCH (08:43)
[2019-05-02] MEDS: levETIRAcetam 750 MG in D5W 95 ML IV SCH ×2 (08:44→21:47)
[2019-05-02] MEDS: Docusate 100mg cap ORAL SCH ×2 (08:44→17:37)
[2019-05-02] MEDS: Calcitriol 0.25mcg Cap ORAL SCH (08:44)
[2019-05-02] MEDS: Lisinopril 10mg tab ORAL SCH (08:44)
--- NOTE | 2019-05-02 09:00 | NUR ---
NURSE NOTES: Patient has linen, gown and body with brownish residue stains, says he had diarrhea yesterday. At first refused to have his linen changed, but nurse convinced him to have bed linen and gown changed. Patient still refused to have his body cleaned.
--- NOTE | 2019-05-02 09:17 | Nephrology Progress Note ---
Assessment/Plan Problem List: (1) CRISTIAN (acute kidney injury) ICD Codes: N17.9 - Acute kidney failure, unspecified SNOMED: 72982463, 7021552 (2) Anemia ICD Codes: D64.9 - Anemia, unspecified SNOMED: 662504093 (3) Iron deficiency ICD Codes: E61.1 - Iron deficiency SNOMED: 69673065 (4) Sepsis ICD Codes: A41.9 - Sepsis, unspecified organism SNOMED: 33187542 (5) Epileptic seizure, generalized ICD Codes: G40.309 - Generalized idiopathic epilepsy and epileptic syndromes, not intractable, without status epilepticus SNOMED: 98332609 (6) Mediastinal mass ICD Codes: J98.59 - Other diseases of mediastinum, not elsewhere classified SNOMED: 47337217 (7) COPD exacerbation ICD Codes: J44.1 - Chronic obstructive pulmonary disease with (acute) exacerbation SNOMED: 688222834 (8) Nonspecific abdominal pain ICD Codes: R10.9 - Unspecified abdominal pain SNOMED: 139075098 (9) Submucosal lesion of esophagus ICD Codes: K22.8 - Other specified diseases of esophagus SNOMED: 828985470 Status: doing well, stable, tolerating diet Assessment/Plan: Waiting for CT head result. Waiting for CT chest/abd results. Subjective Constitutional: Reports: no symptoms HEENT: Reports: no symptoms Cardiovascular: Reports: no symptoms Respiratory: Reports: no symptoms Gastrointestinal/Abdominal: Reports: no symptoms Genitourinary: Reports: no symptoms Neurologic/Psychiatric: Reports: no symptoms Endocrine: Reports: no symptoms Hematologic/Lymphatic: Reports: no symptoms Allergies: Coded Allergies: No Known Allergies (Unverified , 02/13/19) Subjective The patient denies any new complaints or symptoms at this time. Objective Last 24 Hour Vital Signs Date Time Temp Pulse Resp B/P (MAP) Pulse Ox O2 Delivery O2 Flow Rate FiO2 05/02/19 08:45 65 117/56 05/02/19 08:44 117/56 05/02/19 07:03 98.3 65 19 117/56 (76) 96 05/02/19 00:24 98.0 60 19 120/50 (73) 96 05/01/19 21:53 Room Air 05/01/19 21:34 66 20 95 Room Air 21 05/01/19 21:02 64 121/48 05/01/19 20:00 98.3 64 19 121/48 (72) 98 05/01/19 16:00 98.2 58 14 120/56 (77) 98 05/01/19 14:01 98.1 05/01/19 12:00 98.1 64 16 131/77 (95) 98 05/01/19 09:16 133/63 05/01/19 09:16 68 133/63 Intake and Output 05/01/19 05/02/19 19:00 07:00 Intake Total 800 ml 800 ml Output Total 600 ml 750 ml Balance 200 ml 50 ml Intake Oral 800 ml 800 ml Output Urine Total 600 ml 750 ml # Voids 2 # Bowel Movements 1 Laboratory Tests 05/02/19 05:32: White Blood Count 3.3L, Red Blood Count 3.56L, Hemoglobin 10.7L, Hematocrit 33.7L, Mean Corpuscular Volume 95, Mean Corpuscular Hemoglobin 30.0, Mean Corpuscular Hemoglobin Concent 31.7L, Red Cell Distribution Width 13.6, Platelet Count 156, Mean Platelet Volume 5.5L, Neutrophils (%) (Auto) , Lymphocytes (%) (Auto) , Monocytes (%) (Auto) , Eosinophils (%) (Auto) , Basophils (%) (Auto) , Neutrophils % (Manual) [Pending], Lymphocytes % (Manual) [Pending], Platelet Estimate [Pending], Platelet Morphology [Pending], Sodium Level 142, Potassium Level 4.7, Chloride Level 109H, Carbon Dioxide Level 27, Anion Gap 6, Blood Urea Nitrogen 13, Creatinine 1.1, Estimat Glomerular Filtration Rate > 60, Glucose Level 103, Calcium Level 9.2, Total Bilirubin 0.4 , Aspartate Amino Transf (AST/SGOT) 16, Alanine Aminotransferase (ALT/SGPT) 19, Alkaline Phosphatase 77, Total Protein 7.2, Albumin 3.3L, Globulin 3.9, Albumin/ Globulin Ratio 0.8L Height (Feet): 6 Height (Inches): 6.00 Weight (Pounds): 150 General Appearance: WD/WN, no apparent distress EENT: PERRL/EOMI Neck: non-tender, supple Cardiovascular: normal peripheral pulses, normal rate, regular rhythm Respiratory/Chest: lungs clear, normal breath sounds Abdomen: normal bowel sounds, non tender Extremities: normal range of motion, non-tender, normal inspection Edema: no edema noted Arm (L), no edema noted Arm (R), no edema noted Leg (L), no edema noted Leg (R) Neurologic: no motor/sensory deficits, alert, oriented x 3 Lyndsey Ibarra N.P. May 02, 2019 09:17
[2019-05-02 12:00] VITALS: BP 127/52
[2019-05-02 16:00] VITALS: BP 122/68
--- NOTE | 2019-05-02 18:30 | NUR ---
NURSE NOTES: done change of dressing as per dr order, photographed and uploaded at EMR.
--- NOTE | 2019-05-02 19:40 | NUR ---
HAND-OFF: Report given to DAVID Luna.
[2019-05-02 20:00] VITALS: BP 110/54
[2019-05-03] VITALS: BP 110/65
[2019-05-03] MEDS ORDERED: Albuterol/Ipratropium 3ml neb HHN PRN (03:30)
[2019-05-03 04:29] VITALS: BP 108/56
[2019-05-03 05:47] LABS: HEMATOCRIT 34.6 % (42.0-52.0); HEMOGLOBIN 11.2 G/DL (14.2-18.0); MEAN CORPUSCULAR VOLUME 94 FL (80-99); PLATELET COUNT 175 K/UL (150-450); RED BLOOD COUNT 3.69 M/UL (4.70-6.10); RED CELL DISTRIBUTION WIDTH 13.8 % (11.6-14.8)
[2019-05-03 06:05] LABS: ALANINE AMINOTRANSFERASE 27 U/L (12-78); ALBUMIN 3.5 G/DL (3.4-5.0); ALBUMIN/GLOBULIN RATIO 0.8 (1.0-2.7); ALKALINE PHOSPHATASE 84 U/L (46-116); ANION GAP 6 mmol/L (5-15); ASPARTATE AMINO TRANSFERASE 19 U/L (15-37); BILIRUBIN,TOTAL 0.4 MG/DL (0.2-1.0); BLOOD UREA NITROGEN 15 mg/dL (7-18); CALCIUM 9.6 MG/DL (8.5-10.1); CARBON DIOXIDE 29 MMOL/L (21-32); CHLORIDE 108 MMOL/L (98-107); POTASSIUM 4.6 MMOL/L (3.5-5.1); SODIUM 143 MMOL/L (136-145)
--- NOTE | 2019-05-03 06:56 | NUR ---
HAND-OFF: Report given to DAVID Olea.
[2019-05-03 08:00] VITALS: BP 141/68
[2019-05-03] MEDS: Calcitriol 0.25mcg Cap ORAL SCH (08:11)
[2019-05-03] MEDS: Lisinopril 10mg tab ORAL SCH (08:12)
[2019-05-03] MEDS: Docusate 100mg cap ORAL SCH ×2 (08:15→17:13)
--- NOTE | 2019-05-03 08:15 | NUR ---
NURSE NOTES: received patient awake, alert, no complaint of pain or discomfort. IV access on the RFA intact. Bed in the lowest position possible, call light within easy reach, siderails up x2. Will continue to monitor pt and follow up with the plan of care.
[2019-05-03] MEDS: Milk of Magnesia 30ml Ud ORAL SCH (08:17)
[2019-05-03] MEDS: levETIRAcetam 750 MG in D5W 95 ML IV SCH ×2 (08:28→20:54)
[2019-05-03 12:00] VITALS: BP 114/55
--- NOTE | 2019-05-03 14:23 | Nephrology Progress Note ---
Assessment/Plan Problem List: (1) CRISTIAN (acute kidney injury) (2) Anemia (3) Iron deficiency (4) Sepsis (5) Epileptic seizure, generalized (6) Mediastinal mass (7) COPD exacerbation (8) Nonspecific abdominal pain (9) Submucosal lesion of esophagus Plan CBC, CMP tomorrow Consult to Oncology placed today regarding results of CT head. Subjective Constitutional: Reports: no symptoms Genitourinary: Reports: no symptoms Neurologic/Psychiatric: Reports: no symptoms Subjective Pt endorses headache. Refuses pain medication for the headache. Endorses a productive cough Objective Objective Last 24 Hour Vital Signs Date Time Temp Pulse Resp B/P (MAP) Pulse Ox O2 Delivery O2 Flow Rate FiO2 05/03/19 12:00 98.6 72 18 114/55 (74) 98 05/03/19 09:00 Room Air 05/03/19 08:17 60 141/68 05/03/19 08:12 108/56 05/03/19 08:00 98.1 60 19 141/68 (92) 98 05/03/19 04:29 98.4 66 18 108/56 (73) 97 05/03/19 00:00 98.4 76 18 110/65 (80) 98 05/02/19 21:00 63 110/54 05/02/19 21:00 Room Air 05/02/19 20:00 100.3 63 20 110/54 (72) 96 05/02/19 19:56 64 18 96 Room Air 21 05/02/19 16:00 97.6 61 17 122/68 (86) 98 Intake and Output 05/02/19 05/03/19 19:00 07:00 Intake Total 902.5 ml 102.5 ml Output Total 500 ml 400 ml Balance 402.5 ml -297.5 ml Intake Oral 800 ml IV Total 102.5 ml 102.5 ml Output Urine Total 500 ml 400 ml Laboratory Tests 05/03/19 05:16: White Blood Count 3.0L, Red Blood Count 3.69L, Hemoglobin 11.2L, Hematocrit 34.6L, Mean Corpuscular Volume 94, Mean Corpuscular Hemoglobin 30.2, Mean Corpuscular Hemoglobin Concent 32.2, Red Cell Distribution Width 13.8, Platelet Count 175, Mean Platelet Volume 6.2L, Neutrophils (%) (Auto) , Lymphocytes (%) ( Auto) , Monocytes (%) (Auto) , Eosinophils (%) (Auto) , Basophils (%) (Auto) , Differential Total Cells Counted 100, Neutrophils % (Manual) 47, Lymphocytes % ( Manual) 43, Monocytes % (Manual) 10, Eosinophils % (Manual) 0, Basophils % ( Manual) 0, Band Neutrophils 0, Platelet Estimate Adequate, Platelet Morphology Normal, Red Blood Cell Morphology Normal, Sodium Level 143, Potassium Level 4.6 , Chloride Level 108H, Carbon Dioxide Level 29, Anion Gap 6, Blood Urea Nitrogen 15, Creatinine 1.0, Estimat Glomerular Filtration Rate > 60, Glucose Level 99, Calcium Level 9.6, Total Bilirubin 0.4, Aspartate Amino Transf (AST/ SGOT) 19, Alanine Aminotransferase (ALT/SGPT) 27, Alkaline Phosphatase 84, Total Protein 7.7, Albumin 3.5, Globulin 4.2, Albumin/Globulin Ratio 0.8L Height (Feet): 6 Height (Inches): 6.00 Weight (Pounds): 150 General Appearance: WD/WN, no apparent distress, alert EENT: PERRL/EOMI Neck: non-tender, normal alignment, supple Cardiovascular: normal peripheral pulses, normal rate, regular rhythm Respiratory/Chest: rhonchi - bilaterally Abdomen: normal bowel sounds, non tender, soft Extremities: normal range of motion, no calf tenderness Neurologic: no motor/sensory deficits, alert, oriented x 3, responsive, normal mood/affect Objective He has multiple skin tears to his R/L legs and R/L arm covered by wound care. The bandaging is clean and no saturation noted. Lyndsey Ibarra N.P. May 03, 2019 14:23
[2019-05-03 16:00] VITALS: BP 148/76
--- NOTE | 2019-05-03 19:46 | NUR ---
HAND-OFF: Report given to RN Vale.
--- NOTE | 2019-05-03 19:47 | NUR ---
NURSE NOTES: Received patient awake, alert and oriented x4. Upon pain assessment, he said pain is an 8/10 but does not want pain meds. IV access on the RFA not patent, had Keppra running since morning. Will reinsert new IV. Bed in the lowest position, locked, side rails x2, call light within reach, urinal also in reach. Pt acknowledged understanding to call me if he needs anything and to not get out of bed. Bed alarm on. Fall precautions in place. Will continue to monitor pt and follow up with the plan of care.
[2019-05-03 20:00] VITALS: BP 102/53
--- NOTE | 2019-05-03 20:45 | NUR ---
NURSE NOTES: Inserted new IV R AC 24 gauge. Iv patent, asymptomatic
[2019-05-04] VITALS: BP 104/52
[2019-05-04 04:00] VITALS: BP 100/54
[2019-05-04 06:44] LABS: HEMOGLOBIN 11.1 G/DL (14.2-18.0); MEAN CORPUSCULAR VOLUME 92 FL (80-99); PLATELET COUNT 169 K/UL (150-450); RED BLOOD COUNT 3.68 M/UL (4.70-6.10); RED CELL DISTRIBUTION WIDTH 13.5 % (11.6-14.8); WHITE BLOOD COUNT 3.4 K/UL (4.8-10.8)
[2019-05-04 06:59] LABS: ALANINE AMINOTRANSFERASE 27 U/L (12-78); ALBUMIN 3.4 G/DL (3.4-5.0); ALBUMIN/GLOBULIN RATIO 0.8 (1.0-2.7); ALKALINE PHOSPHATASE 88 U/L (46-116); ANION GAP 5 mmol/L (5-15); ASPARTATE AMINO TRANSFERASE 20 U/L (15-37); BILIRUBIN,TOTAL 0.4 MG/DL (0.2-1.0); BLOOD UREA NITROGEN 15 mg/dL (7-18); CALCIUM 9.3 MG/DL (8.5-10.1); CARBON DIOXIDE 29 MMOL/L (21-32); CHLORIDE 106 MMOL/L (98-107); CREATININE 0.9 MG/DL (0.55-1.30); POTASSIUM 4.4 MMOL/L (3.5-5.1); SODIUM 140 MMOL/L (136-145)
--- NOTE | 2019-05-04 07:38 | NUR ---
HAND-OFF: Report given to DAVID Olea.
[2019-05-04 07:51] VITALS: BP 133/88
--- NOTE | 2019-05-04 08:08 | NUR ---
NURSE NOTES: received patient awake, alert, no complaint of pain or discomfort. IV access on the RAC intact. Bed in the lowest position possible, call light within easy reach, siderails up x2. Will continue to monitor pt and follow up with the plan of care.
[2019-05-04] MEDS: Calcitriol 0.25mcg Cap ORAL SCH (08:20)
[2019-05-04] MEDS: Lisinopril 10mg tab ORAL SCH (08:21)
[2019-05-04] MEDS: Docusate 100mg cap ORAL SCH (08:24)
[2019-05-04] MEDS: levETIRAcetam 750 MG in D5W 95 ML IV SCH (08:24)
[2019-05-04] MEDS: Milk of Magnesia 30ml Ud ORAL SCH (08:24)
--- NOTE | 2019-05-04 10:53 | Diagnostic Imaging Report ---
Indication: Cough Technique: One view of the chest Comparison: 11/19/2018 Findings: Lungs are somewhat hyperinflated. Calcified granuloma projects at the right lung base. The heart size is normal. Lungs and pleural spaces are clear. Old healed right 10th rib fracture deformity is again demonstrated The aorta is elongated is a tracheal stent now present. No other significant interim change Impression: No acute process. Findings as noted
--- NOTE | 2019-05-04 11:04 | CDS Physician Query ---
Randell: Clarification is required for compliance, coding accuracy, and to reflect severity of illness for this patient. Dear Dr. Ernesto Reynoso Date: 05/01/2019 CDS name: Sunita Tyler admitted with generalized seizure disorder Clinical Documentation states: 04/29 Kori Ibarra'emily note: Sepsis 04/27 (day of admission) vitals/labs: WBC 7.1, Temp 98.2, CA 114, RR 18 04/29 labs/vitals: WBC 3.9, Temp 97.5, CA 71, RR 21 on 2 L NC Treatment: no antibiotics Kindly specify if the diagnosis of sepsis was: [X] Ruled out [] Resolved [] Other: [] Clinically Undetermined Present on Admission: [X] Yes [] No [] Clinically Undetermined Physician signature Date Please also document in your Progress Notes and/or Discharge Summary and indicate if the condition was present on admission. JC
--- NOTE | 2019-05-04 11:32 | Nephrology Progress Note ---
Assessment/Plan Plan Metastatic Lung CA - DW Dr. Landeros To refer to [facility] for PT + nutritional support. If better then offer chemo. Subjective Subjective No new c/o Objective Objective Last 24 Hour Vital Signs Date Time Temp Pulse Resp B/P (MAP) Pulse Ox O2 Delivery O2 Flow Rate FiO2 05/04/19 08:21 133/88 05/04/19 08:21 71 133/88 05/04/19 07:51 96.5 71 18 133/88 (103) 99 05/04/19 07:00 64 18 96 Room Air 21 05/04/19 04:00 98.6 60 16 100/54 (69) 98 05/04/19 00:00 98.2 59 16 104/52 (69) 98 05/03/19 21:58 69 18 95 Room Air 21 05/03/19 20:59 Room Air 05/03/19 20:54 60 102/53 05/03/19 20:00 98.0 60 15 102/53 (69) 98 05/03/19 16:00 97.4 67 18 148/76 (100) 98 05/03/19 12:00 98.6 72 18 114/55 (74) 98 Intake and Output 05/03/19 05/04/19 19:00 07:00 Intake Total 1202.5 ml 102.5 ml Output Total 900 ml 800 ml Balance 302.5 ml -697.5 ml Intake Oral 1100 ml IV Total 102.5 ml 102.5 ml Output Urine Total 900 ml 800 ml Laboratory Tests 05/04/19 05:40: White Blood Count 3.4L, Red Blood Count 3.68L, Hemoglobin 11.1L, Hematocrit 34.0L, Mean Corpuscular Volume 92, Mean Corpuscular Hemoglobin 30.1, Mean Corpuscular Hemoglobin Concent 32.6, Red Cell Distribution Width 13.5, Platelet Count 169, Mean Platelet Volume 5.2L, Neutrophils (%) (Auto) , Lymphocytes (%) ( Auto) , Monocytes (%) (Auto) , Eosinophils (%) (Auto) , Basophils (%) (Auto) , Differential Total Cells Counted 100, Neutrophils % (Manual) 63, Lymphocytes % ( Manual) 21, Monocytes % (Manual) 11H, Eosinophils % (Manual) 4H, Basophils % ( Manual) 1, Band Neutrophils 0, Platelet Estimate Adequate, Platelet Morphology Normal, Red Blood Cell Morphology Normal, Sodium Level 140, Potassium Level 4.4 , Chloride Level 106, Carbon Dioxide Level 29, Anion Gap 5, Blood Urea Nitrogen 15, Creatinine 0.9, Estimat Glomerular Filtration Rate > 60, Glucose Level 92, Calcium Level 9.3, Total Bilirubin 0.4, Aspartate Amino Transf (AST/SGOT) 20, Alanine Aminotransferase (ALT/SGPT) 27, Alkaline Phosphatase 88, Total Protein 7.7, Albumin 3.4, Globulin 4.3, Albumin/Globulin Ratio 0.8L Height (Feet): 6 Height (Inches): 6.00 Weight (Pounds): 150 Objective Cachectic. CV RR Lungs CTA Abd SNT. BS + E M. wasting. Neuro more alert. Ernesto Reynoso MD May 04, 2019 11:32
[2019-05-04] MEDS ORDERED: MOM30 ML ORAL (11:36)
[2019-05-04] MEDS ORDERED: HYDROCODON-ACE1 EA13 ORAL (11:36)
[2019-05-04] MEDS ORDERED: ACETAMINOPHEN325 M1 ORAL (11:36)
[2019-05-04] MEDS ORDERED: FEOSOL325 MG ORAL (11:36)
[2019-05-04] MEDS ORDERED: LEXAPRO10 MG ORAL (11:36)
[2019-05-04] MEDS ORDERED: NORMODYNE100 MG ORAL (11:36)
[2019-05-04] MEDS ORDERED: DUONEB 0.5-3(2.53 ML HHN (11:36)
[2019-05-04] MEDS ORDERED: COLACE100 MG ORAL (11:36)
[2019-05-04] MEDS ORDERED: NORCO 5-325 TA1 EACH ORAL (11:36)
[2019-05-04] MEDS ORDERED: LAMICTAL25 MG ORAL (11:36)
[2019-05-04] MEDS ORDERED: ZESTRIL10 M1 ORAL (11:36)
[2019-05-04] MEDS ORDERED: ROCALTROL0.25 MCG ORAL (11:36)
[2019-05-04] MEDS ORDERED: PANTOPRAZOLE SO40 MG ORAL (11:36)
[2019-05-04 12:00] VITALS: BP 129/77
--- NOTE | 2019-05-04 16:00 | NUR ---
NURSE NOTES: called [facility]ae, spoken to Raven, who told me RN Family Physician Jens is away from his desk, and will call later. Given 4E nurse station phone number to Raven, asked her to call us as soon as forming and assembling supervisor is able to.
--- NOTE | 2019-05-04 17:34 | NUR ---
NURSE NOTES: pt has been discharged to [facility], report given to MICHAEL Vera. Pt signed off belongings list and left with all his belongings. IV access taken off,n o bleeding after site compression. Pt in stable condition and vs, no complaint of pain or dsicomfort. Pt leave with [facility], [place], given report and discharge packet to EMS personel.
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
--- NOTE | 2019-05-06 16:48 | Cardiology Report ---
APPROVED REPORT EKG Measurement Heart [id number] CT [id number] Normal sinus rhythm Nonspecific ST abnormality Abnormal ECG
== END 2019-05-04 17:23 | DRG 100 ==
LOC: EDBD 18:37 → EMR 19:35 → 2W 20:16 → EDBEDREQ 21:47 → 2W 22:22 → 4E 04-29 22:17
DX: G40.409 Other generalized epilepsy and epileptic syndromes, not intractable, without status epilepticus (principal); J98.59 Other diseases of mediastinum, not elsewhere classified; N17.9 Acute kidney failure, unspecified; J44.1 Chronic obstructive pulmonary disease with (acute) exacerbation; C34.90 Malignant neoplasm of unspecified part of unspecified bronchus or lung; C79.9 Secondary malignant neoplasm of unspecified site; K22.8 Other specified diseases of esophagus; R10.9 Unspecified abdominal pain; D64.9 Anemia, unspecified
CPT/HCPCS: 36415; 36600; 70450; 71045; 71250; 74176; 80048; 80053; 80156; 80164; 80185; 80329; 82550; 82553; 82803; 82962; 84484; 85007; 85025; 87081; 90471; 90715; 93005; 93970; 94640; 94664; 96374; 99285; J7620

== ENCOUNTER 2019-12-29 12:20 | Emergency (ER) | payer MEDICARE, MEDICAID ==
[~2019-12-29] VITALS: Ht 188 cm; Wt 77.1 kg
[~2019-12-29 12:20] MED LIST changes: +CALCITRIOL0.25 MCG PO; +CAPOTEN12.5 MG ORAL; +COLACE100 MG ORAL; +FEOSOL325 MG ORAL; +HYDROCODON-ACE1 EA13 ORAL; +LAMICTAL25 MG ORAL; +LISINOPRIL5 MG ORAL; +MOM30 ML ORAL; +NORMODYNE100 MG ORAL; +ROCALTROL0.25 MCG ORAL; +VITAMIN B COMP1 EAC2 ORAL; +ZESTRIL10 M1 ORAL
[2019-12-29] MEDS ORDERED: TRIUMEQ 600-501 EACH PO (12:35)
[2019-12-29 12:37] VITALS: BP 109/65
[2019-12-29] MEDS ORDERED: LEVETIRACETAM500 MG ORAL (12:38)
[2019-12-29] MEDS ORDERED: NIFEDIPINE ER30 MG ORAL (12:38)
[2019-12-29] MEDS ORDERED: PREDNISONE10 MG ORAL (12:38)
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
[2019-12-29] MEDS ORDERED: Tetanus/Diptheria/Pertussis IM ONE (14:45)
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
[2019-12-29 17:20] VITALS: BP 115/68
== END 2019-12-29 17:20 ==
LOC: EDBD 12:20 → EMR 12:56
DX: S09.90XA Unspecified injury of head, initial encounter (principal); W18.2XXA Fall in (into) shower or empty bathtub, initial encounter; Y92.9 Unspecified place or not applicable; I10 Essential (primary) hypertension; J44.9 Chronic obstructive pulmonary disease, unspecified; B20 Human immunodeficiency virus [HIV] disease; K21.9 Gastro-esophageal reflux disease without esophagitis; G40.909 Epilepsy, unspecified, not intractable, without status epilepticus; Z85.118 Personal history of other malignant neoplasm of bronchus and lung; Z23 Encounter for immunization
CPT/HCPCS: 70450; 72125; 90471; 90715; 99284